=== PATIENT | female | born 2000 | race Caucasian/White ===

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

== ENCOUNTER 2022-02-24 05:44 | Day surgery (SDC) | payer OTHER, SELFPAY ==
[2022-02-24] MEDS: Lactated Ringers 1,000 ML 15 ML IV (06:23)
[2022-02-24 06:24] VITALS: BP 111/65; PULSE 78; RESP 18; TEMP 36.6; O2SAT 100; BMI 21.2
--- NOTE | 2022-02-24 07:00 | EGD_PTH ---
PATIENT: LEOBARDO COLIN LOC: EN U#:[id number] AGE/SX: 21/F ROOM: RE02/24/[address]: Dr. Tyson Sotelo DO : 2000 BED: DIS: 02/24/2022 SPEC #: [id number] RECD: 02/24/22 15:09 STATUS: ELVIS REQ #: [id number] SUKHDEEP: 02/24/22 07:[address]: Tyson Sotelo DEPT: SURGICAL PATHOLOGY RECD BY: Lauren Landa ENTERED: 02/25/22 13:05 SP TYPE: EGD BIOPSY OT DR: Dr. Mitali Alonzo MD Tissues: A - Esophagus, NOS B - Ileum, NOS C - COLON BIOPSY Procedures: Special Stain Group II Surgery Specimen Level IV Alcian Blue/PAS (control) HEADER OPERATION: Colonoscopy, EGD ([facility] [place]), pill cam placement PRE-OP DIAGNOSIS: Celiac disease TISSUE SUBMITTED: A ? Distal esophagus biopsy, B ? Terminal ileum biopsy, C ? Random colonic biopsy MICROSCOPIC DIAGNOSIS A. Distal esophagus, biopsy: Gastroesophageal junctional mucosa with chronic inflammation. No evidence of goblet cell metaplasia. See comment. B. Terminal ileum, biopsy: No pathologic change. C. Colon, random biopsy: No pathologic change. AM:michael 02/28/2022 COMMENT A. Alcian blue/PAS stain with matched control supports the above diagnosis. MICROSCOPIC DESCRIPTION Slides are reviewed. GROSS DESCRIPTION A - Received in fixative is one container labeled with the patient's name and designated distal esophagus biopsy. The specimen consists of two irregular fragments of light rowell soft tissue that in aggregate measure 0.5 x 0.3 x 0.1 cm. The specimen is totally submitted in one cassette. B - Received in fixative is one container labeled with the patient's name and designated terminal ileum biopsy. The specimen consists of two irregular fragments of light rowell soft tissue that in aggregate measure 1 x 0.5 x 0.1 cm. The specimen is totally submitted in one cassette. C - Received in fixative is one container labeled with the patient's name and designated random colon biopsy. The specimen consists of multiple irregular fragments of light rowell soft tissue that in aggregate measure 1.5 x 1 x 0.1 cm. The specimen is totally submitted in one cassette. / AM:michael 02/25/2022 TC:5 CPT: 09829 x3, [id number]
--- NOTE | 2022-02-24 07:10 | HP.PCM_ITS ---
History and Physical Date of Admission: 02/24/22 MARISA COLIN, is a 21 F who presents to the office today accompanied by her father for 2 month f/u abdominal pain, bloating, constipation. Workup at last visit revealed she has celiac disease.? She has been following a gluten-free diet since that diagnosis, and reports resolution of her GI complaints.? Bowels now move daily or at least every other day, she has no further abdominal pain or bloating. She has working diagnosis of scleroderma based on lab results, goes to [facility], Dr Glez.? She has follow-up with him in February. Her paternal uncle had colon cancer age 50.? Her father is in his 40s, he has had colon polyps. Romana established with this clinic 09.01.21 with referral from PCP for positive MONROE with workup for scleroderma; symptom onset and first noted by several episodes of iritis.? Shortly after having the COVID vaccination she dev eloped right eye redness and pain.? Interestingly she currently has a recurrence of the right eye redness and pain, this occurred within 48 hours of receiving the flu vaccination.? She has an appointment today to see her lead data architect Dr. Parikh for this recurrence of what he has diagnosed as scleritis rather than iritis.? Seen by rheumatology with no noted skin tightening, photosensitivity, calcinosis, telangiectasias. Noted some Raynauds phenomenon in feet. GI symptoms included upper abdominal pain worse after eating, constipation with lower abdominal/pelvic pain. Biochemical workup with PCP ESR, CBC, Lyme (P41 and P23 present), CCP IgG ab without pertinent abnormalities. Elevated: CRP 5.71, MONROE positive with Anti Cent B ab 6.0. Stool testing calprotectin, pancreatic elastase, H.Pylori and lactoferrin without abnormality. 10/2021 labs: crp 5.16, neg stool calpro, neg stool h pylori, normal GAME, normal SPEP w/ GAVIN, normal ANCA,?positive tissue transglutaminase IgA SITZ marker . First Xray four R colon, 19 R colon, none RS colon, total 23 rings. Second Xray five rings RS colon. 11/18/21 NM/Gastric Emptying Study IMPRESSION: 1. NORMAL 99m Tc sulfur colloid semi-solid phase (oatmeal) gastric emptying imaging examination. 19.10 minutes, (Normal: 12-56 minutes).? A.? There is normal and preserved semi-solid phase gastric emptying compared to normal controls.? (Ann et al, J Nucl Med Tech? 38: 186, 2010). 12/16/21 NM/Hepatobilliary Img w/Pharm Int IMPRESSION: 1.? A gallbladder ejection fraction calculated to be greater than 35% following the administration of intravenous cholecystokinin makes? the probability of functional hepatobiliary disease (gallbladder dyskinesia) and/or organic hepatobiliary disease (chronic acalculous cholecystitis and/or cystic duct syndrome) to be low. 2.? An encountered? normal gallbladder ejection fraction with refilling of the gallbladder following CCK administration, may represent the presence of Sphincter of Oddi dysfunction.? Correlation with Sphincter of Oddi manometry may be of benefit.? (Erich, J Nucl Med 38:1824, 1996). 3. There is visualized duodenal gastric reflux on the post CCK acquisition ROS Const Constitutional: Positive for fatigue and headache(s) ENT ENT: Positive for headache(s); No difficulty swallowing Gastro GI: Positive for change in bowel habits; No abdominal pain, belching, bloating, change in stool character, coffee ground emesis, constipation, cramping, diarrhea, heartburn, difficulty swallowing, feeling full early, excessive flatus, incontinent of stools, Vomiting blood/hematemesis, Blood in stool, loose stools, Black,tarry stools, nausea/dyspepsia, pain with swallowing, vomiting or other Musc Musculoskeletal: Positive for joint pain and back pain Skin Skin: Positive for dry skin; No yellowing of the eye or itchy eyes Neuro Neurology: Positive for headache(s) Psych Psychiatric: Positive for anxiety and No depression Endo Endocrine: Positive for fatigue Aller/Imm Allergy/Immunologic: No itchy eyes Allen/Lymp Hematologic/Lymphatic: No easy bleeding or easy bruising Exam Const General: cooperative, healthy appearing and comfortable Nutritional Appearance: average body habitus Orientation: alert, awake and oriented x3 Quality Reporting Tobacco Screening ([facility] 138) Smoking Status: Never smoker Assessment and Plan Assessment and Plan (1) Celiac disease: ?Status:?Acute ?Plan: 21-year-old female whose GI symptoms have resolved since instituting a gluten- free diet since being diagnosed with celiac disease in October [address] Sotelo.? We will schedule her for baseline upper and lower endoscopy as well as a capsule endoscopy to evaluate the entire small bowel, we will plan on capsule endoscopy being placed when she has her endoscopies done. 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 There are no clinical changes since date of exam.
[2022-02-24 07:52] VITALS: BP 124/75; PULSE 72; RESP 18; TEMP 36.6; O2SAT 94
[2022-02-24 07:53] VITALS: BP 100/52; PULSE 77; RESP 18; O2SAT 97
--- NOTE | 2022-02-24 07:59 | OP.EGD_ITS ---
Patient Name: Romana Hancock Procedure Date: 02/24/2022 7:10 AM Date of : 2000 Age: 21 Procedure: Upper GI endoscopy Indications: Epigastric abdominal pain Providers: Tyson Sotelo DO Referring MD: Mitali Alonzo Medicines: Monitored Anesthesia Care Patient Profile: This is a 21 year old female. Refer to note in patient chart for documentation of history and physical. Patient has symptoms of chronic abdominal cramping, chronic epigastric abdominal pain and chronic nausea. Complications: No immediate complications. Procedure: Pre-Anesthesia Assessment: - Prior to the procedure, a History and Physical was performed, and patient medications and allergies were reviewed. The risks and benefits of the procedure and the sedation options and risks were discussed with the patient. All questions were answered and informed consent was obtained. Patient identification and proposed procedure were verified by the physician. Mental Status Examination: alert and oriented. Respiratory Examination: clear to auscultation. CV Examination: normal. Prophylactic Antibiotics: The patient does not require prophylactic antibiotics. Prior Anticoagulants: The patient has taken no previous anticoagulant or antiplatelet agents. After reviewing the risks and benefits, the patient was deemed in satisfactory condition to undergo the procedure. The anesthesia plan was to use monitored anesthesia care (MAC). Immediately prior to administration of medications, the patient was re-assessed for adequacy to receive sedatives. The heart rate, respiratory rate, oxygen saturations, blood pressure, adequacy of pulmonary ventilation, and response to care were monitored throughout the procedure. The physical status of the patient was re-assessed after the procedure. After obtaining informed consent, the endoscope was passed under direct vision. Throughout the procedure, the patient's blood pressure, pulse, and oxygen saturations were monitored continuously. The Colonoscope was introduced through the mouth, and advanced to the second part of duodenum. The upper GI endoscopy was accomplished without difficulty. The patient tolerated the procedure well. Scope In: 7:20:47 AM Scope Out: 7:36:37 AM Total Procedure Duration Time 0 hours 15 minutes 50 seconds Findings: The Z-line was irregular and was found 38 cm from the incisors. Biopsies were taken with a cold forceps for histology. Verification of patient identification for the specimen was done. The entire examined stomach was normal. No gross lesions were noted in the duodenal bulb, in the first portion of the duodenum and in the second portion of the duodenum. Using the endoscope, the video capsule enteroscope was advanced into the second portion of the duodenum. Impression: - Z-line irregular, 38 cm from the incisors. Biopsied. - Normal stomach. - No gross lesions in the duodenal bulb, in the first portion of the duodenum and in the second portion of the duodenum. - Successful completion of the Video Capsule Enteroscope placement. Recommendation: - Discharge patient to home. - Resume previous diet. - Continue present medications. - Await pathology results. Procedure Code(s): --- Professional --- 85761, Esophagogastroduodenoscopy, flexible, transoral; with biopsy, single or multiple CPT copyright 2017 [employer]. All rights reserved. The codes documented in this report are preliminary and upon spring production supervisor review may be revised to meet current compliance requirements. Tyson Sotelo DO 02/24/2022 7:59:00 AM This report has been signed electronically. Number of Addenda: 0 Note Initiated On: 02/24/2022 7:10 AM
[2022-02-24 08:00] VITALS: BP 95/59; PULSE 66; RESP 18; O2SAT 96
--- NOTE | 2022-02-24 08:00 | OP.CCLET_ITS ---
02/24/2022 Mitali Alonzo [place] [id number] [place] [address] Re : Upper GI endoscopy procedure for Romana Rossalena Dear Dr. Alonzo This procedure was performed on February. My impressions and recommendations are as follows: Impressions : - Z-line irregular, 38 cm from the incisors. Biopsied. - Normal stomach. - No gross lesions in the duodenal bulb, in the first portion of the duodenum and in the second portion of the duodenum. - Successful completion of the Video Capsule Enteroscope placement. Recommendations : - Discharge patient to home. - Resume previous diet. - Continue present medications. - Await pathology results. My findings are described in the full procedure note, which is enclosed. If I can be of further assistance, please feel free to contact me at . Sincerely, Tyson Sotelo, 02/24/2022 7:59:00 AM This report has been signed electronically.
[2022-02-24 08:05] VITALS: BP 105/57; BP 111/65; PULSE 75; RESP 18; TEMP 36.3; O2SAT 99
--- NOTE | 2022-02-24 08:05 | OP.COLON_ITS ---
Patient Name: Romana Hancock Procedure Date: 02/24/2022 7:36 AM Date of : 2000 Age: 21 Procedure: Colonoscopy Indications: Epigastric abdominal pain, Generalized abdominal pain, Abdominal pain in the left lower quadrant, Clinically significant diarrhea of unexplained origin Providers: Tyson Sotelo DO Referring MD: Mitali Alonzo Medicines: Monitored Anesthesia Care Patient Profile: This is a 21 year old female. Refer to note in patient chart for documentation of history and physical. Patient has symptoms of chronic abdominal cramping, chronic epigastric abdominal pain and chronic nausea. Last Colonoscopy: none. The patient's first colonoscopy is today. Complications: No immediate complications. Procedure: Pre-Anesthesia Assessment: - Prior to the procedure, a History and Physical was performed, and patient medications and allergies were reviewed. The risks and benefits of the procedure and the sedation options and risks were discussed with the patient. All questions were answered and informed consent was obtained. Patient identification and proposed procedure were verified by the physician. Mental Status Examination: alert and oriented. Respiratory Examination: clear to auscultation. CV Examination: normal. Prophylactic Antibiotics: The patient does not require prophylactic antibiotics. Prior Anticoagulants: The patient has taken no previous anticoagulant or antiplatelet agents. After reviewing the risks and benefits, the patient was deemed in satisfactory condition to undergo the procedure. The anesthesia plan was to use monitored anesthesia care (MAC). Immediately prior to administration of medications, the patient was re-assessed for adequacy to receive sedatives. The heart rate, respiratory rate, oxygen saturations, blood pressure, adequacy of pulmonary ventilation, and response to care were monitored throughout the procedure. The physical status of the patient was re-assessed after the procedure. After I obtained informed consent, the scope was passed under direct vision. Throughout the procedure, the patient's blood pressure, pulse, and oxygen saturations were monitored continuously. The Colonoscope was introduced through the anus and advanced to the terminal ileum. The colonoscopy was performed without difficulty. The patient tolerated the procedure well. The quality of the bowel preparation was good. Scope In: 7:38:25 AM Scope Withdrawal Time 0 hours 7 minutes 15 seconds Scope Out: 7:47:40 AM Total Procedure Duration Time 0 hours 9 minutes 15 seconds Findings: The perianal and digital rectal examinations were normal. The colon (entire examined portion) appeared normal. Biopsies were taken with a cold forceps for histology. Verification of patient identification for the specimen was done. Estimated blood loss was minimal. The terminal ileum appeared normal. Biopsies were taken with a cold forceps for histology. Verification of patient identification for the specimen was done. Estimated blood loss was minimal. No additional abnormalities were found on retroflexion. Impression: - The entire examined colon is normal. Biopsied. - The examined portion of the ileum was normal. Biopsied. Recommendation: - Discharge patient to home. - Resume previous diet. - Continue present medications. - Await pathology results. - Repeat colonoscopy in 5 years for surveillance based on pathology results. Procedure Code(s): --- Professional --- 20526, Colonoscopy, flexible; with biopsy, single or multiple CPT copyright 2017 [employer]. All rights reserved. The codes documented in this report are preliminary and upon sports book writer review may be revised to meet current compliance requirements. Tyson Sotelo DO 02/24/2022 8:04:31 AM This report has been signed electronically. Number of Addenda: 0 Note Initiated On: 02/24/2022 7:36 AM
--- NOTE | 2022-02-24 08:05 | OP.CCLET_ITS ---
02/24/2022 Mitali Alonzo [place] [id number] [place] [address] Re : Colonoscopy procedure for Romana Hancock Dear Dr. Alonzo This procedure was performed on February. My impressions and recommendations are as follows: Impressions : - The entire examined colon is normal. Biopsied. - The examined portion of the ileum was normal. Biopsied. Recommendations : - Discharge patient to home. - Resume previous diet. - Continue present medications. - Await pathology results. - Repeat colonoscopy in 5 years for surveillance based on pathology results. My findings are described in the full procedure note, which is enclosed. If I can be of further assistance, please feel free to contact me at . Sincerely, Tyson Sotelo, 02/24/2022 8:04:31 AM This report has been signed electronically.
[2022-02-24 08:24] VITALS: BP 111/65
== END 2022-02-24 08:30 | disposition home or self-care (01) ==
LOC: EN 05:48 → AC 05:50
PROVIDERS: PCP Family Medicine; Referring Provider Family Medicine; Visit Provider Internal Medicine Gastroenterology
PROC: 0DJD8ZZ Inspection of Lower Intestinal Tract, Via Natural or Artificial Opening Endoscopic (ICD-10-PCS; CPT 45378; principal; 2022-02-24 06:55)
DX: K20.90 Esophagitis, unspecified without bleeding (principal); K90.0 Celiac disease; R10.13 Epigastric pain; R19.7 Diarrhea, unspecified
CPT/HCPCS: 43239; 45380; 88305; 88313; J7120; J2405

== ENCOUNTER → 2022-03-10 | Outpatient (CLI) | payer OTHER, SELFPAY ==
[2022-03-10 10:41] LABS: Erythrocyte Sedimentation Rate 2 mm/hr (0-30)
[2022-03-10 11:16] LABS: CRP 2.97 mg/L (0.0-3.0); LDH 107 U/L (84-246)
[2022-03-11 18:07] LABS: Endomysial Antibody IgA Negative (Negative)
[2022-03-11 19:02] LABS: Immunoglobulin A 130 mg/dL (87-352); t-Transglutaminase IgA 3 U/mL (0-3)
== END | disposition home or self-care (01) ==
PROVIDERS: PCP Family Medicine; Visit Provider Nurse Practitioner Adult Health
DX: K90.0 Celiac disease (principal); R19.8 Other specified symptoms and signs involving the digestive system and abdomen; R10.9 Unspecified abdominal pain; K63.3 Ulcer of intestine
CPT/HCPCS: 36415; 82784; 83516; 83615; 85652; 86140; 86255

== ENCOUNTER → 2022-05-20 | Outpatient (CLI) | payer OTHER, SELFPAY ==
[2022-05-20 10:16] VITALS: BP 108/73; PULSE 86; RESP 17; TEMP 36.8; O2SAT 100; BMI 21.9
[2022-05-20] MEDS: Dextrose 5% 250 ML 15 ML IV (10:37)
[2022-05-20 11:57] VITALS: BP 100/54; PULSE 69; RESP 16; TEMP 36.7; O2SAT 100
== END | disposition home or self-care (01) ==
LOC: MEDOUTP 10:04
PROVIDERS: PCP Family Medicine; Referring Provider Internal Medicine Gastroenterology; Visit Provider Internal Medicine Gastroenterology
DX: K50.90 Crohn's disease, unspecified, without complications (principal)
CPT/HCPCS: 96365; A4216; J2327

== ENCOUNTER → 2022-06-21 | Outpatient (CLI) | payer OTHER, SELFPAY ==
[2022-06-21 13:24] VITALS: BP 112/66; PULSE 77; RESP 16; O2SAT 100
[2022-06-21] MEDS: Dextrose 5% 250 ML 15 ML IV (13:56)
[2022-06-21 15:29] VITALS: BP 115/67; PULSE 87; RESP 16
== END | disposition home or self-care (01) ==
LOC: MEDOUTP 13:09
PROVIDERS: PCP Family Medicine; Referring Provider Internal Medicine Gastroenterology; Visit Provider Internal Medicine Gastroenterology
DX: K50.90 Crohn's disease, unspecified, without complications (principal)
CPT/HCPCS: 96365; A4216; J2327

== ENCOUNTER 2022-07-19 13:22 | Outpatient (CLI) | payer OTHER, SELFPAY ==
[2022-07-19] MEDS: 0.9% NaCl Peripheral Flush Adult/Peds IV (13:27)
[2022-07-19 13:39] VITALS: BP 119/68; PULSE 94; RESP 16; TEMP 36.5; O2SAT 100; BMI 22.7
[2022-07-19] MEDS: 0.9% NaCl IVPB Med Flush (250 mL) 15 ML IV (13:39)
[2022-07-19 15:26] VITALS: BP 93/55; PULSE 78
== END 2022-07-19 13:23 | disposition home or self-care (01) ==
LOC: MEDOUTP 13:22
PROVIDERS: PCP Family Medicine; Referring Provider Internal Medicine Gastroenterology; Visit Provider Internal Medicine Gastroenterology
DX: K50.90 Crohn's disease, unspecified, without complications (principal)
CPT/HCPCS: 96365; J7050; A4216; J2327

== ENCOUNTER → 2022-09-02 | Outpatient (CLI) | payer OTHER, SELFPAY ==
[2022-09-06 07:07] LABS: QNTFERON TB Mitogen Value > 10.00 IU/mL (.); QNTFERON TB Nil Value 0 IU/mL (.); QNTFERON TB1+ Ag Value 0 IU/mL (.); QNTFERON TB2+ Ag Value 0 IU/mL (.); QNTIFERON TB Positive Criteria Negative (Negative)
== END | disposition home or self-care (01) ==
LOC: BFHLAB 11:12
PROVIDERS: PCP Family Medicine; Visit Provider Family Medicine
DX: Z11.1 Encounter for screening for respiratory tuberculosis (principal)
CPT/HCPCS: 36415; 86480

== ENCOUNTER → 2022-10-14 | Outpatient (CLI) | payer OTHER, SELFPAY ==
[2022-10-14 14:58] LABS: Absolute Lymphocyte Count 2.66 X10^3/uL (0.83-4.51); Absolute Neutrophil Count 2.9 X10^3/uL (2.0-7.7); Basophil# 0.03 X10^3/uL; Basophil% 0.5 % (0-1); Eosinophil# 0.13 X10^3/uL; Eosinophils% 2.1 % (0-5); Hematocrit 38.9 % (37-47); Hemoglobin 12.6 g/dL (12.0-15.0); Lymphocyte # 2.66 X10^3/ul (0.83-4.51); Mean Corp Hgb Conc 32.4 g/dL (32-36); Mean Corpuscular Hgb 29.2 pg (27.0-32.0); Mean Corpuscular Volume 90.3 fL (81-99); Mean Platelet Vol. 11.3 fl (6.2-12.0); Monocyte# 0.43 X10^3/uL; Monocyte% 6.9 % (0-10); NRBC Flagged by Analyzer 0 % (0-5); Neutrophil # 2.92 X10^3/uL (2.7-7.7); Neutrophil % 47.2 % (47-70); Platelet Count 232 K/mm3 (150-450); RBC Distribution Width CV 12.5 % (11.6-14.6); RBC Distribution Width SD 41.6 fl (35.1-43.9); Red Blood Count 4.31 M/mm3 (4.2-5.4); White Blood Count 6.2 K/mm3 (4.4-11.0)
[2022-10-14 15:26] LABS: Vitamin B12 274 pg/mL (211-911)
[2022-10-14 15:49] LABS: Ferritin 13 ng/mL (8-252); Iron 77 ug/dL (50-170); Iron Binding Capacity,Total 426 ug/dL (250-450); PERCENT IRON SATURATION 18.1 % (15.0-55.0)
== END | disposition home or self-care (01) ==
LOC: LAB 14:40
PROVIDERS: PCP Family Medicine; Referring Provider Family Medicine; Visit Provider Family Medicine
DX: R55 Syncope and collapse (principal); D64.9 Anemia, unspecified
CPT/HCPCS: 36415; 82607; 82728; 82746; 83540; 83550; 85025

== ENCOUNTER → 2022-12-13 | Outpatient (CLI) | payer OTHER, SELFPAY ==
[2022-12-13 12:15] LABS: Absolute Lymphocyte Count 1.58 X10^3/uL (0.83-4.51); Absolute Neutrophil Count 4.1 X10^3/uL (2.0-7.7); Basophil# 0.02 X10^3/uL; Basophil% 0.3 % (0-1); Eosinophil# 0.09 X10^3/uL; Eosinophils% 1.5 % (0-5); Hematocrit 39.9 % (37-47); Hemoglobin 12.8 g/dL (12.0-15.0); Lymphocyte # 1.58 X10^3/ul (0.83-4.51); Lymphocyte % 25.7 % (19-41); Mean Corp Hgb Conc 32.1 g/dL (32-36); Mean Corpuscular Volume 90.5 fL (81-99); Monocyte# 0.34 X10^3/uL; Monocyte% 5.5 % (0-10); NRBC Flagged by Analyzer 0 % (0-5); Neutrophil # 4.08 X10^3/uL (2.7-7.7); Neutrophil % 66.5 % (47-70); Platelet Count 236 K/mm3 (150-450); RBC Distribution Width SD 43.2 fl (35.1-43.9); Red Blood Count 4.41 M/mm3 (4.2-5.4); White Blood Count 6.1 K/mm3 (4.4-11.0)
[2022-12-13 13:07] LABS: Ferritin 15 ng/mL (8-252); Iron 160 ug/dL (50-170); Iron Binding Capacity,Total 368 ug/dL (250-450); PERCENT IRON SATURATION 43.5 % (15.0-55.0)
== END | disposition home or self-care (01) ==
LOC: BFHLAB 11:03
PROVIDERS: PCP Family Medicine; Referring Provider Family Medicine; Visit Provider Family Medicine
DX: D50.9 Iron deficiency anemia, unspecified (principal)
CPT/HCPCS: 36415; 82728; 83540; 83550; 85025

== ENCOUNTER 2023-01-01 03:11 | Emergency (ER) | payer OTHER, SELFPAY ==
[2023-01-01 03:12] VITALS: BP 139/91; PULSE 95; RESP 18; TEMP 36.6; O2SAT 100; BMI 24.3
--- NOTE | 2023-01-01 03:44 | RAD_ITS ---
INDICATION: chest pain EXAMINATION/TECHNIQUE: X-RAY - XR Chest 2 Views COMPARISON: 07/01/2021. FINDINGS: LINES/DEVICES: None. LUNGS: No consolidation or evidence of an effusion. No evidence of edema or a pneumothorax. MEDIASTINUM AND CARDIOVASCULAR STRUCTURES: Cardiac silhouette is normal in size and contour. Mediastinum is unremarkable. BONES AND SOFT TISSUES: No acute abnormality. RAD/Chest PA and Lateral IMPRESSION: No evidence of cardiopulmonary disease. Electronically Signed: Nestor oDdson DO at 3:56 EDT ,
[2023-01-01 03:47] LABS: Absolute Lymphocyte Count 3.18 X10^3/uL (0.83-4.51); Absolute Neutrophil Count 3.7 X10^3/uL (2.0-7.7); Basophil# 0.03 X10^3/uL; Basophil% 0.4 % (0-1); Eosinophil# 0.06 X10^3/uL; Eosinophils% 0.8 % (0-5); Hematocrit 39.6 % (37-47); Hemoglobin 12.9 g/dL (12.0-15.0); Lymphocyte # 3.18 X10^3/ul (0.83-4.51); Lymphocyte % 42.8 % (19-41); Mean Corp Hgb Conc 32.6 g/dL (32-36); Mean Corpuscular Hgb 29.3 pg (27.0-32.0); Mean Corpuscular Volume 89.8 fL (81-99); Monocyte# 0.49 X10^3/uL; Monocyte% 6.6 % (0-10); NRBC Flagged by Analyzer 0 % (0-5); Neutrophil # 3.66 X10^3/uL (2.7-7.7); Neutrophil % 49.3 % (47-70); Platelet Count 237 K/mm3 (150-450); RBC Distribution Width CV 12.6 % (11.6-14.6); RBC Distribution Width SD 41.9 fl (35.1-43.9); Red Blood Count 4.41 M/mm3 (4.2-5.4); White Blood Count 7.4 K/mm3 (4.4-11.0)
--- NOTE | 2023-01-01 03:51 | EDS_ITS ---
HPI History of Present Illness Chief Complaint: Chest Pain Informant: patient and friend Narrative Narrative: Patient is a 22-year-old female with past medical history of celiac disease as well as Crohn's disease who receives monthly injections of Skyrizi. Patient states around 7 or 8:00 this evening she developed some midsternal left-sided chest discomfort. She states that there was no recent trauma or excessive activity. She denies any sick symptoms. She reports she is on oral control but denies smoking or vaping. She denies any recent travel surgery or history of DVT/PE but does state that her symptoms seem to be worse with deep inspiration. She states that there has been no associated nausea vomiting or diaphoresis and she denies any illicit drug use such as crack cocaine or methamphetamine. However as symptoms have been persistent she presents for evaluation [facility] Medical History Abdominal pain Acne Alternating constipation and diarrhea Anemia Constipation Epigastric pain Exercise-induced asthma Eyelid eczema History of echocardiogram Myalgia Positive MONROE (antinuclear antibody) Ulcer of small intestine Uveitis Wears contact lenses Wears glasses Home Medications norgestimate-ethinyl estradiol 0.18 mg/0.215mg/0.25mg-35 mcg(28)tablet (Tri-Est arylla) 1 tab PO DAILY 07/22/21 [History Last Taken 02/23/22] prednisolone acetate 1 % eye drops,suspension 1 drp RIGHT EYE BID 02/22/22 [History Last Taken 02/23/22] dicyclomine 10 mg capsule 10 mg PO BID #60 caps 05/17/22 [Rx Last Taken Unknown] aloe vera 1 cap PO DAILY 06/21/22 [History Last Taken Unknown] sumatriptan succinate 50 mg tablet mg PO 10/06/22 [History Last Taken Unknown] risankizumab-rzaa 360 mg/2.4 mL (150 mg/mL) subcut wearable injector (Skyrizi) 360 mg (2.4 mL) subcut Q8W #2.4 mL 12/08/22 [Rx Last Taken Unknown] Allergy/AdvReac Type Severity Reaction Status Date / Time adalimumab [From Humira] Allergy Rash Verified 01/01/23 03:14 Surgical History History of wisdom tooth extraction Social History Smoking Status: Never smoker alcohol intake: never ROS ROS ED Constitutional Constitutional ED: Denies chills or fever(s) ENT ENT ED: Denies sore throat Cardiovascular Cardiovascular: Reports chest pain and racing heartbeat; Denies palpitations Respiratory/Chest Respiratory/Chest: Denies cough or dyspnea Gastrointestinal Gastrointestinal: Denies abdominal pain, diarrhea, nausea or vomiting Genitourinary Genitourinary ED: Denies dysuria Musculoskeletal Musculoskeletal: Denies myalgias Integumentary Denies rash Neurologic Neurologic: Denies headache(s) Hematologic/Lymphatic Hematologic/Lymphatic: Denies easy bleeding or easy bruising EXAM Physical Exam Const Vital Signs: 01/01/23 03:12 01/01/23 03:14 01/01/23 03:56 Temperature 97.9 F Temperature Source Temporal Pulse Rate 95 75 Respiratory Rate 18 16 Respiratory Effort Normal Non-Labored Blood Pressure 139/91 H 120/89 H Blood Pressure Mean 107 99 Pulse Ox 100 100 Oxygen Delivery Method Room Air Room Air Positive well nourished and well developed General Appearance ED: well developed HEENT Reports moist mucous membranes HEENT Narrative: No sign of infection noted in the posterior pharynx Eyes PERRL and EOMs intact bilaterally Neck supple Neck Narrative: No nuchal rigidity or meningeal signs Chest Wall Chest Narrative: There is reproducible left anterior chest wall pain on palpation along the costal joint of rib regions 4-6. Patient states this is the same pain she has been experiencing. There is no bony deformity or crepitance. No overlying soft tissue changes to suggest cellulitis or abscess. Resp normal respiratory effort and clear to auscultation bilaterally Cardio regular rhythm Rate: tachycardic and other Other Details: Slightly tachycardic rate with regular rhythm. No murmurs rubs or gallops noted Radial and carotid pulses are equal and symmetric GI normal to inspection, nondistended, normoactive bowel sounds, non-tender, non-distended and no masses GI Narrative: No voluntary guarding or rigidity no pulsatile mass or fluid wave Auscultation: normoactive bowel sounds Palpation: soft Extremity normal to inspection Extremity Narrative: No asymmetric edema no pitting edema negative Homans' sign bilaterally Neuro oriented x3, CN's II-XII intact bilaterally and no sensory deficits noted Sensorium / Orientation: alert Motor Exam: strength 5/5 throughout Psych Psych Narrative: Patient has a nervous/anxious affect Mood & Affect: anxious Skin no rashes or lesions noted and no wounds General Skin Exam: Negative for jaundice MDM MDM MDM Narrative Medical decision making narrative: Patient presented to the ER mildly hypertensive otherwise with stable vitals. She complained of midsternal left-sided chest discomfort. There is no associated classic cardiac symptoms such as nausea vomiting diaphoresis or shortness of breath. Patient also does not have a family history of cardiac disease at a young age. However as there is still possibility that this could be atypical acute coronary syndrome versus pulmonary embolus versus pneumonia versus pneumothorax versus myocarditis versus costochondritis/chest wall strain I did elect to perform basic laboratory studies with D-dimer and chest x-ray. Patient's troponin is less than 3 and as she is low risk for cardiovascular disease there is no need for delta troponin and this goes against acute coronary syndrome. Chest x-ray revealed no pneumonia or pneumothorax or widening of the mediastinum going against dissection. D-dimer is also normal going against pulmonary embolus or dissection. On reevaluation she is resting comfortably and her blood pressure has improved. For this time I feel symptoms are most likely musculoskeletal in nature and as she is low risk for acute coronary syndrome there is no need for further work-up and she is otherwise safe for discharge History & Record Review Discussion w/independent historian: Patient and Friend Lab Data Attestation: I reviewed the patient's lab results. Labs: Laboratory Results - last 24 hr 01/01/23 01/01/23 03:30 03:43 WBC 7.4 RBC 4.41 Hgb 12.9 Hct 39.6 MCV 89.8 MCH 29.3 MCHC 32.6 RDW Std Deviation 41.9 RDW Coeff of Abdiel 12.6 Plt Count 237 MPV 11.0 Immature Gran % (Auto) 0.100 Neut % (Auto) 49.3 Lymph % (Auto) 42.8 H [place] % (Auto) 6.6 Eos % (Auto) 0.8 Baso % (Auto) 0.4 Absolute Neuts (auto) 3.7 Absolute Lymphs (auto) 3.18 Nucleated RBC % 0 D-Dimer Quant (PE/DVT) < 0.27 L Sodium 139 Potassium 3.2 L Chloride 104 Carbon Dioxide 26.0 Anion Gap 9 BUN 11 Creatinine 0.93 Estim Creat Clear Calc 93.84 Est GFR (MDRD) Af Amer 99 Est GFR (MDRD) Non-Af 82 BUN/Creatinine Ratio 11.9 Glucose 93 Calcium 9.1 Magnesium 2.1 Total Bilirubin 0.40 Direct Bilirubin 0.08 AST 16 ALT 22 Alkaline Phosphatase 52 Troponin I High Sens < 3 L Total Protein 7.3 Albumin 3.7 Globulin 3.6 Radiography Diagnostic Testing: Clinical Impression(s) from Imaging Studies Chest X-Ray 01/01/23 03:44 IMPRESSION: No evidence of cardiopulmonary disease. Electronically Signed: Nestor Dodson DO at 3:56 EDT , 2 view chest x-ray as interpreted by the emergency medicine physician reveals no acute infiltrate pneumothorax pleural effusion or widening of the mediastinum Discharge Plan Triage Chief Complaint: Chest Pain ED Provider: Tyrell Sykes Dx/Rx/DC Orders Clinical Impression: Acute nonspecific chest pain with low risk of coronary artery disease, Crohn's disease, Celiac disease Instructions: ED Chest Pain, Uncertain Cause, ED Chest Wall Pain, Costochondritis Prescriptions: No Action norgestimate-ethinyl estradiol [Tri-Estarylla] 0.18/0.215/0.25 mg-35 mcg (28) tablet 1 tab PO DAILY sumatriptan succinate 50 mg tablet PO prednisolone acetate 1 % drops,suspension 1 drp RIGHT EYE BID Patient Comments: INSTILL 1 DROP INTO RIGHT EYE TWICE A DAY FOR 3 WEEKS aloe vera Capsule 1 cap PO DAILY dicyclomine 10 mg capsule 10 mg PO BID Qty: 60 2RF Skyrizi 360 mg/2.4 mL (150 mg/mL) wearable injector 360 mg subcut Q8W Qty: 2.4 6RF Primary Care Provider: Mitali Alonzo Referrals: Mitali Alonzo MD [Primary Care Provider] - Activity Restrictions/Additional Instructions: Your work-up in the ER showed no signs of active heart damage pneumonia pneumothorax or findings concerning for pulmonary embolus/blood clot. Work-up and exam is most consistent with musculoskeletal chest wall pain. Please continue with Tylenol and/or Motrin for pain control and continue all of your home medications as previously directed. If you have any further concerns please return to the ER for repeat evaluation. Disposition Disposition: Home, Self Care
[2023-01-01] MEDS: Ketorolac 30 MG/ML Syringe IV (03:52)
[2023-01-01 03:56] VITALS: BP 120/89; PULSE 75; RESP 16; O2SAT 100
[2023-01-01 04:09] LABS: Anion Gap 9 (5-15); BUN 11 mg/dL (7-18); BUN/Creat Ratio 11.9 RATIO (10-20); Calcium,Total 9.1 mg/dL (8.5-10.1); Chloride 104 mmol/L (98-107); Creatinine, Serum 0.93 mg/dL (0.55-1.02); EST Glomerular Filtration Rate 82 mL/min (>60); Est Glom Filt Rate - Afr Amer 99 mL/min (>60); Estimated Creatinine Clearance 93.84 ml/min; Glucose 93 mg/dL (74-106); Magnesium 2.1 mg/dL (1.6-2.6); Potassium 3.2 mmol/L (3.5-5.1); Sodium Level 139 mmol/L (136-145); Troponin-I HS < 3 pg/mL (3.0-54.0)
[2023-01-01 04:27] LABS: D-Dimer Quantitative (DVT/PE) < 0.27 FEU/ug/m (0.27-0.49)
[2023-01-01 04:42] LABS: AST(SGOT) 16 U/L (15-37); Alanine Aminotransfer ALT/SGPT 22 U/L (13-56); Albumin, Serum 3.7 g/dL (3.2-5.0); Alkaline Phosphatase 52 U/L (45-117); Bilirubin, Direct 0.08 mg/dL (0.00-0.30); Globulin 3.6 g/dL (2.2-4.2); Protein, Total 7.3 g/dL (6.4-8.2)
[2023-01-01 04:55] VITALS: BP 128/73; PULSE 69; RESP 18; O2SAT 99
== END 2023-01-01 04:56 | disposition home or self-care (01) ==
PROVIDERS: Emergency Provider Emergency Medicine; PCP Family Medicine; Visit Provider Emergency Medicine
DX: R07.89 Other chest pain (principal); K50.90 Crohn's disease, unspecified, without complications; K90.0 Celiac disease
CPT/HCPCS: 71046; 80048; 80076; 83735; 84484; 85025; 85379; 93005; 96374; 99283; A4216

== ENCOUNTER → 2023-03-27 | Outpatient (CLI) | payer OTHER, SELFPAY ==
--- OUTSIDE RECORDS SUMMARY | 2023-03-27 09:42 | XMS RPT_ITS | CCD ---
Author Name Unknown Address [address] [place] [address] Organization [facility] Results Test Name Value Interpretation Reference Range Facil ity Vital Signs Date Time Vital Sign Value Performing Clinician Faci lity 05-02-2019 00:17-0500 Body surface area Derived from formula [facility] ([place]) Summary Purpose Family History No Family History Records FoundNo Family History Records FoundNo Family History Records Found Advance Directives No Advanced Directives Records FoundNo Advanced Directives Records FoundNo Advanced Directives Records Found Additional Source Comments INFORMATION SOURCE (unrecogn ized section and content) DATE CREATED AUTHOR AUTHOR'S ORGANIZ ATION 05/04/2019 [facility] ([place]) DATE CREATED AUTHOR AUTHOR'S ORGANIZ ATION 10/01/[address] [facility] FOR RECORDS PERTAINING TO PATIENTS WHO ARE OR HAVE BEEN ENROLLED IN A CHEMICAL DEPENDENCY/SUBSTANCEABUSE PROGRAM, SOME INFORMATION MAY BE OMITTED. This clinical summary was aggregated from multiple sources. Caution should be exercised in using it in the provision of clinical care. This summary normalizes information from multiple sources, and as a consequence, information in this document may materially change the coding, format and clinical context of patient data. In addition, data may be omitted in some cases. CLINICAL DECISIONS SHOULD BE BASED ON THE PRIMARY CLINICAL RECORDS. [facility]. provides no warranty or guarantee of the accuracy or completeness of information in this document.
[2023-03-27 10:14] LABS: Absolute Neutrophil Count 3.8 X10^3/uL (2.0-7.7); Basophil# 0.03 X10^3/uL; Basophil% 0.5 % (0-1); Eosinophils% 1.6 % (0-5); Hematocrit 41.8 % (37-47); Hemoglobin 13.4 g/dL (12.0-15.0); Lymphocyte % 31.5 % (19-41); Mean Corp Hgb Conc 32.1 g/dL (32-36); Mean Corpuscular Hgb 28.9 pg (27.0-32.0); Mean Corpuscular Volume 90.1 fL (81-99); Mean Platelet Vol. 11.1 fl (6.2-12.0); Monocyte# 0.41 X10^3/uL; Monocyte% 6.5 % (0-10); NRBC Flagged by Analyzer 0 % (0-5); Neutrophil # 3.79 X10^3/uL (2.7-7.7); Neutrophil % 59.6 % (47-70); Platelet Count 229 K/mm3 (150-450); RBC Distribution Width CV 12.8 % (11.6-14.6); RBC Distribution Width SD 42.3 fl (35.1-43.9); Red Blood Count 4.64 M/mm3 (4.2-5.4); White Blood Count 6.4 K/mm3 (4.4-11.0)
[2023-03-27 10:15] LABS: Erythrocyte Sedimentation Rate < 1 mm/hr (0-30)
[2023-03-27 12:49] LABS: AST(SGOT) 11 U/L (15-37); Alanine Aminotransfer ALT/SGPT 19 U/L (13-56); Albumin, Serum 3.5 g/dL (3.2-5.0); Alkaline Phosphatase 53 U/L (45-117); Anion Gap 8 (5-15); BUN 9 mg/dL (7-18); BUN/Creat Ratio 10.9 RATIO (10-20); Calcium,Total 9.1 mg/dL (8.5-10.1); Chloride 107 mmol/L (98-107); Creatinine, Serum 0.82 mg/dL (0.55-1.02); EST Glomerular Filtration Rate 93 mL/min (>60); Est Glom Filt Rate - Afr Amer 113 mL/min (>60); Globulin 3.5 g/dL (2.2-4.2); Glucose 88 mg/dL (74-106); LDH 143 U/L (84-246); Potassium 3.8 mmol/L (3.5-5.1); Sodium Level 139 mmol/L (136-145)
[2023-03-29 19:09] LABS: Endomysial Antibody IgA Negative (Negative); Immunoglobulin A 135 mg/dL (87-352); QNTFERON TB Mitogen Value > 10.00 IU/mL (.); QNTFERON TB Nil Value 0 IU/mL (.); QNTFERON TB1+ Ag Value 0 IU/mL (.); QNTFERON TB2+ Ag Value 0 IU/mL (.); QNTIFERON TB Positive Criteria Negative (Negative); t-Transglutaminase IgA <2 U/mL (0-3)
[2023-04-01 01:07] LABS: Calprotectin, Stool 17 ug/g (0-120)
== END | disposition home or self-care (01) ==
LOC: LAB 09:17
PROVIDERS: PCP Family Medicine; Referring Provider Internal Medicine Gastroenterology; Visit Provider Internal Medicine Gastroenterology
DX: K50.90 Crohn's disease, unspecified, without complications (principal); K90.0 Celiac disease
CPT/HCPCS: 36415; 80053; 82784; 83516; 83615; 83630; 83993; 85025; 85652; 86140; 86255; 86480

== ENCOUNTER 2023-09-12 06:11 | Outpatient (REF) | payer SELFPAY ==
[2023-09-12 06:13] VITALS: BP 120/82; PULSE 81; RESP 16; TEMP 36.4; O2SAT 98; BMI 23.6
--- NOTE | 2023-09-12 06:26 | EDS_ITS ---
HPI History of Present Illness Chief Complaint: Occup Expose Informant: patient Narrative Narrative: Patient is a 23-year-old female with past medical history of Crohn's disease currently on Skyrizi. 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 She states this occurred just prior to arrival. She does admit to the history of immunosuppression secondary to Crohn's and the immunosuppressive drug Skyrizi. Otherwise denies any numbness tingling or weakness PFSH [facility] Medical History Ulcer of small intestine Abdominal pain Alternating constipation and diarrhea Wears contact lenses Wears glasses Anemia History of echocardiogram Myalgia Constipation Epigastric pain Uveitis Positive MONROE (antinuclear antibody) Exercise-induced asthma Eyelid eczema Acne Home Medications ?Medication ?Instructions ?Recorded ?Last Taken ?Type norgestimate-ethinyl estradiol 1 tab PO DAILY 07/22/21 02/23/22 History 0.18 mg/0.215mg/0.25mg-35 mcg(28)tablet (Tri-Estarylla) prednisolone acetate 1 % eye 1 drp RIGHT EYE BID PRN redness 02/22/22 02/23/22 History drops,suspension risankizumab-rzaa 360 mg/2.4 mL 360 mg (2.4 mL) subcut Q8W #2.4 mL 12/08/22 Unknown Rx (150 mg/mL) subcut wearable injector (Skyrizi) dicyclomine 10 mg capsule 10 mg PO BID #120 caps 08/20/23 Unknown Rx topiramate 25 mg tablet (Topamax) 25 mg PO BID 08/28/23 Unknown History doxycycline hyclate 20 mg tablet 20 mg PO BID 09/12/23 Unknown History Allergy/AdvReac Type Severity Reaction Status Date / Time adalimumab (From Humira) Allergy Rash Verified 05/24/23 11:55 gluten AdvReac Other Verified 09/12/23 06:13 Surgical History History of wisdom tooth extraction Social History Smoking Status: Never smoker alcohol intake: never ROS ROS ED Constitutional Constitutional ED: Denies chills or fever(s) Respiratory/Chest Respiratory/Chest: Denies cough Gastrointestinal Gastrointestinal: Denies nausea or vomiting Genitourinary Genitourinary ED: Denies dysuria Musculoskeletal Musculoskeletal: Denies myalgias Integumentary Reports Abrasions Neurologic Neurologic: Denies headache(s) Hematologic/Lymphatic Hematologic/Lymphatic: Denies easy bleeding or easy bruising EXAM Physical Exam Const Vital Signs: 09/12/23 06:13 09/12/23 06:13 Temperature 97.6 F L Temperature Source Oral Pulse Rate 81 Respiratory Rate 16 Respiratory Effort Normal Non-Labored Blood Pressure 120/82 H Blood Pressure Mean 94 Pulse Ox 98 Oxygen Delivery Method Room Air Positive well nourished and well developed General Appearance ED: well developed HEENT HEENT Narrative: Normocephalic atraumatic Eyes PERRL and EOMs intact bilaterally Neck supple Resp normal respiratory effort and clear to auscultation bilaterally Cardio regular rate and regular rhythm Extremity Extremity Narrative: Left upper extremity is neurovascularly intact; AIN/PIN are intact and normal Along the volar aspect of the wrist distal radius is a superficial less than half centimeter skin abrasion consistent with scrape/puncture from a needle. There is no active bleeding no retained foreign body no surrounding erythema or warmth or lymphangitic streaking Neuro oriented x3, CN's II-XII intact bilaterally and no sensory deficits noted Sensorium / Orientation: alert Motor Exam: strength 5/5 throughout Psych mental status grossly normal Skin Skin Narrative: Soft tissue abrasion to the left volar wrist as documented above MDM MDM MDM Narrative Medical decision making narrative: Patient presented to the ER with stable vitals and sustained a needle stick exposure just prior to arrival. 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 I do agree with drawing laboratory studies to ensure there is no signs of blood-borne pathogen but at this time based on the size of the injury and the nature of the source patient concern for underlying infection is low and do not recommend antiviral treatment. Patient was instructed on the normal symptomatic wound care and is otherwise safe for discharge History & Record Review Discussion w/independent historian: Patient Discharge Plan Triage Chief Complaint: Occup Expose ED Provider: Tyrell Sykes Dx/Rx/DC Orders Clinical Impression: Accidental needlestick injury with exposure to body fluid, Crohn's disease Instructions: ED NEEDLE STICK Health Care Worker Prescriptions: No Action norgestimate-ethinyl estradiol [Tri-Estarylla] 0.18/0.215/0.25 mg-35 mcg (28) tablet 1 tab PO DAILY topiramate [Topamax] 25 mg tablet 25 mg PO BID prednisolone acetate 1 % drops,suspension 1 drp RIGHT EYE BID PRN (Reason: redness) Patient Comments: INSTILL 1 DROP INTO RIGHT EYE TWICE A DAY FOR 3 WEEKS doxycycline hyclate 20 mg tablet 20 mg PO BID Skyrizi 360 mg/2.4 mL (150 mg/mL) wearable injector 360 mg subcut Q8W Qty: 2.4 6RF dicyclomine 10 mg capsule 10 mg PO BID Qty: 120 3RF Primary Care Provider: Mitali Alonzo Referrals: [facility]Group of Physicians] - Mitali Alonzo MD [Primary Care Provider] - Activity Restrictions/Additional Instructions: Please return to the ER should you have any further concerns Print Language: Tunisian Disposition Disposition: Home, Self Care
[2023-09-12 06:37] VITALS: BP 105/70; PULSE 64; RESP 16; TEMP 36.7; O2SAT 100
[2023-09-14 17:02] LABS: HIV - WCH Non-Reactive (Nonreactive); Hepatitis B Surface Antibody Reactive; Hepatitis B Surface Antigen Non-Reactive (Nonreactive); Hepatitis C Antibody Non-Reactive (Nonreactive)
== END 2023-09-12 06:53 | disposition home or self-care (01) ==
LOC: ED 06:11
PROVIDERS: PCP Family Medicine; Visit Provider Emergency Medicine
DX: S61.532A Puncture wound without foreign body of left wrist, initial encounter (principal); K50.90 Crohn's disease, unspecified, without complications; D84.9 Immunodeficiency, unspecified; Z79.899 Other long term (current) drug therapy; Z77.21 Contact with and (suspected) exposure to potentially hazardous body fluids; W46.1XXA Contact with contaminated hypodermic needle, initial encounter; Y99.0 Civilian activity done for income or pay
CPT/HCPCS: 86703; 86706; 86803; 87340

== ENCOUNTER → 2023-11-21 | Outpatient (CLI) | payer OTHER, SELFPAY ==
[2023-11-26 22:14] LABS: HPV Reflexed? NOT INDICATED
== END | disposition home or self-care (01) ==
LOC: LABSPEC 12:07
PROVIDERS: PCP Family Medicine; Referring Provider Nurse Practitioner Family; Visit Provider Nurse Practitioner Family
DX: Z12.4 Encounter for screening for malignant neoplasm of cervix (principal)
CPT/HCPCS: 88175; G0145

== ENCOUNTER → 2024-01-22 | Outpatient (CLI) | payer OTHER, SELFPAY ==
[2024-01-25 09:09] LABS: QNTFERON TB Mitogen Value > 10.00 IU/mL (.); QNTFERON TB Nil Value 0 IU/mL (.); QNTFERON TB1+ Ag Value 0 IU/mL (.); QNTFERON TB2+ Ag Value 0 IU/mL (.); QNTIFERON TB Positive Criteria Negative (Negative)
== END | disposition home or self-care (01) ==
LOC: BFHLAB 10:33
PROVIDERS: PCP Family Medicine; Referring Provider Nurse Practitioner Family; Visit Provider Nurse Practitioner Family
DX: Z11.7 Encounter for testing for latent tuberculosis infection (principal)
CPT/HCPCS: 36415; 86480

== ENCOUNTER → 2024-01-29 | Outpatient (CLI) | payer OTHER, SELFPAY | END | disposition home or self-care (01) | LOC: LABSPEC 10:27 | PROVIDERS: PCP Family Medicine; Referring Provider Nurse Practitioner Family; Visit Provider Nurse Practitioner Family | DX: L02.01 Cutaneous abscess of face (principal) | CPT/HCPCS: 87070; 87077; 87186; 87205 ==

== ENCOUNTER → 2024-04-05 | Outpatient (CLI) | payer OTHER, SELFPAY ==
--- NOTE | 2024-04-05 10:45 | RAD_ITS ---
STUDY: X-RAY - LEFT FOOT CLINICAL: Female, 23 years old. MYALGIA, BUMPS ON BOTH FEET FOR 2 YEARS TECHNIQUE: 3 views of the left foot. COMPARISON: None. FINDINGS: Normal talus, calcaneus, and tarsal bones. Normal visualized subtalar, talonavicular, calcaneocuboid, tarsal and tarsometatarsal articulations. Normal metatarsi. Normal metatarsophalangeal joint of the great toe. Normal tibial and fibular sesamoid bones. Normal interphalangeal joint of the great toe. Normal phalanges of the great toe. Normal second through fifth metatarsophalangeal joints. Normal interphalangeal joints and phalanges of the lesser toes. The soft tissue structures are unremarkable. There is no demonstrated fracture. RAD/Foot min 3 Views IMPRESSION: Normal x-ray examination of the left foot. Electronically Signed: Nomi Antonio MD at 9:35 EST ,
--- NOTE | 2024-04-05 10:45 | RAD_ITS ---
STUDY: X-RAY - RIGHT HAND REASON FOR EXAM: Female, 23 years old. MYALGIA, BUMPS ON RIGHT HAND X 2 MONTHS. TECHNIQUE: 3 views of the right hand. COMPARISON: None. FINDINGS: Normal radiocarpal articulation. Normal distal radioulnar joint. Normal visualized carpal bones. Normal carpal articulations. Normal carpometacarpal articulation of the thumb. Normal second through fifth carpometacarpal joints. Normal metacarpi. Normal metacarpophalangeal joint of the thumb. Normal interphalangeal joint of the thumb. Normal proximal and distal phalanges of the thumb. Normal metacarpophalangeal joints of the second through fifth fingers. Normal proximal and distal interphalangeal joints of the second through fifth fingers. Normal phalanges of the second through fifth fingers. The soft tissue structures are unremarkable. RAD/Hand Min 3 Views IMPRESSION: Normal x-ray examination of the right hand. Electronically Signed: Nomi Antonio MD at 9:44 EST ,
--- NOTE | 2024-04-05 10:45 | RAD_ITS ---
STUDY: X-RAY - LEFT HAND REASON FOR EXAM: Female, 23 years old. MYALGIA, BUMPS ON RIGHT HAND X 2 MONTHS TECHNIQUE: 3 views of the left hand. COMPARISON: None. FINDINGS: Normal radiocarpal articulation. Normal distal radioulnar joint. Normal visualized carpal bones. Normal carpal articulations. Normal carpometacarpal articulation of the thumb. Normal second through fifth carpometacarpal joints. Normal metacarpi. Normal metacarpophalangeal joint of the thumb. Normal interphalangeal joint of the thumb. Normal proximal and distal phalanges of the thumb. Normal metacarpophalangeal joints of the second through fifth fingers. Normal proximal and distal interphalangeal joints of the second through fifth fingers. Normal phalanges of the second through fifth fingers. The soft tissue structures are unremarkable. RAD/Hand Min 3 Views IMPRESSION: Normal x-ray examination of the left hand. Electronically Signed: Nomi Antonio MD at 9:39 EST ,
--- NOTE | 2024-04-05 10:45 | RAD_ITS ---
STUDY: X-RAY - PELVIS REASON FOR EXAM: Female, 23 years old. MYALGIA,OTHER SITE -- AP PELVIS-W FROG VIEW TECHNIQUE: One view of the pelvis was obtained. COMPARISON: None. FINDINGS: There is a non-specific bowel gas pattern. Normal visualized soft tissue structures. No fracture or displaced bony fragment is present. No demonstrated sclerosis or osteophyte formation of the SI joints. Normal bilateral iliac wings, sacroiliac joints and visualized sacrum. Normal visualized bilateral superior and inferior pubic rami. There are minimal degenerative changes of the pubic symphysis with articular narrowing and sclerosis. Normal ischial tuberosities. Normal visualized right femoral head. Normal right acetabulum. Normal right hip joint. Normal visualized left femoral head. Normal left acetabulum. Normal left hip joint. RAD/Pelvis 1 or 2 Views IMPRESSION: 1. Minimal degenerative changes of the pubic symphysis. The remaining structures are normal. Electronically Signed: Renard Beckwith MD at 9:23 EST ,
--- NOTE | 2024-04-05 10:45 | RAD_ITS ---
STUDY: X-RAY - RIGHT FOOT CLINICAL: Female, 23 years old. MYALGIA, OTHER SITE TECHNIQUE: 3 views of the right foot. COMPARISON: None. FINDINGS: Normal talus, calcaneus, and tarsal bones. Normal visualized subtalar, talonavicular, calcaneocuboid, tarsal and tarsometatarsal articulations. Normal metatarsi. Normal metatarsophalangeal joint of the great toe. Normal tibial and fibular sesamoid bones. Normal interphalangeal joint of the great toe. Normal phalanges of the great toe. Normal second through fifth metatarsophalangeal joints. Normal interphalangeal joints and phalanges of the lesser toes. The soft tissue structures are unremarkable. There is no demonstrated fracture. RAD/Foot min 3 Views IMPRESSION: Normal x-ray examination of the right foot. Electronically Signed: Nomi Antonio MD at 9:34 EST ,
[2024-04-05 11:05] LABS: Absolute Lymphocyte Count 2.32 X10^3/uL (0.83-4.51); Absolute Neutrophil Count 2.3 X10^3/uL (2.0-7.7); Basophil# 0.02 X10^3/uL; Basophil% 0.4 % (0-1); Eosinophil# 0.11 X10^3/uL; Eosinophils% 2.2 % (0-5); Hematocrit 42.3 % (37-47); Hemoglobin 14.2 g/dL (12.0-15.0); Lymphocyte # 2.32 X10^3/ul (0.83-4.51); Lymphocyte % 46.6 % (19-41); Mean Corp Hgb Conc 33.6 g/dL (32-36); Mean Corpuscular Hgb 29.5 pg (27.0-32.0); Mean Corpuscular Volume 87.8 fL (81-99); Mean Platelet Vol. 11.2 fl (6.2-12.0); Monocyte# 0.26 X10^3/uL; Monocyte% 5.2 % (0-10); NRBC Flagged by Analyzer 0 % (0-5); Neutrophil # 2.26 X10^3/uL (2.7-7.7); Neutrophil % 45.4 % (47-70); Platelet Count 239 K/mm3 (150-450); RBC Distribution Width CV 13.4 % (11.6-14.6); RBC Distribution Width SD 43.5 fl (35.1-43.9); Red Blood Count 4.82 M/mm3 (4.2-5.4)
[2024-04-05 11:08] LABS: Erythrocyte Sedimentation Rate < 1 mm/hr (0-30)
[2024-04-05 11:56] LABS: AST(SGOT) 7 U/L (15-37); Alanine Aminotransfer ALT/SGPT 15 U/L (13-56); Albumin, Serum 3.8 g/dL (3.2-5.0); Alkaline Phosphatase 52 U/L (45-117); Bilirubin, Direct 0.12 mg/dL (0.00-0.30); CRP < 2.90 mg/L (0.0-3.0); Globulin 3.6 g/dL (2.2-4.2); Protein, Total 7.4 g/dL (6.4-8.2)
[2024-04-06 02:40] LABS: Creatinine, Serum 0.98 mg/dL (0.55-1.02); EST Glomerular Filtration Rate 76 mL/min (>60); Est Glom Filt Rate - Afr Amer 92 mL/min (>60)
== END | disposition home or self-care (01) ==
LOC: LAB 09:51
PROVIDERS: PCP Family Medicine; Referring Provider Internal Medicine Rheumatology; Visit Provider Internal Medicine Rheumatology
DX: R76.0 Raised antibody titer (principal); Z79.899 Other long term (current) drug therapy; M79.18 Myalgia, other site
CPT/HCPCS: 36415; 72170; 73130; 73630; 80076; 82565; 85025; 85652; 86140

== ENCOUNTER → 2025-02-25 | Outpatient (CLI) | payer OTHER, SELFPAY ==
--- OUTSIDE RECORDS SUMMARY | 2025-02-25 11:14 | XMS RPT_ITS | CCD ---
Author Organization [facility] Care Team Providers Care Career And Guidance Counselor Name Role Phone Dr. Mitali Alonzo Primary Care Provider [phone] Dr. Omkar Guadarrama Attending Provider Dr. Mitali Alonzo Referring Provider [phone] Dr. Tyson Sotelo Attending Provider [phone] Dr. Daniel Schmitt Attending Provider Dr. Doris Walden Referring Provider Dr. Mitali Alonzo Primary Care Provider [phone] Dr. Mitali Alonzo Referring Provider [phone] Ashlyn MCGOWAN, ROSLYN-Amor Reed Attending Provider [phone] Dr. Tyson Sotelo Attending Provider [phone] Dr. Tyson Sotelo Other Provider [phone] Mitali Alonzo Primary Care Provider [phone] Dr. Mitali Alonzo Referring Provider [phone] Dr. Tyson Sotelo Attending Provider [phone] Dr. Tyson Sotelo Other Provider [phone] Ashlyn MCGOWAN, MOSHE Reed Attending Provider [phone] Dr. Mitali Alonzo Primary Care Provider [phone] Dr. Mitali Alonzo Referring Provider [phone] Dr. Tyson Sotelo Attending Provider [phone] Dr. Mitali Alonzo Primary Care Provider Dr. Mitali Alonzo Referring Provider Dr. Mitali Alonzo Primary Care Provider Dr. Mitali Alonzo Referring Provider Dr. Tyson Sotelo Attending Provider Mitali Alonzo MD Primary Care Provider CHERI MITALI E Primary Care Unavailable FAIZA THOMAS Attending Unavailable DORIS WALDEN Referring Unavailable Cheri CHRISTIANSON, Dr. Jasmine Primary Care Provider Dr. Mitali Alonzo MD Referring Provider Dr. Tyson Sotelo DO Attending Provider Assessment, Health Risk Attending Provider Unava ilable Assessment, Health Risk Referring Provider Unava ilable Gerri CLOTH BRUSHING AND SUEDING SUPERVISOR-CMara Attending Provider [facility], [place] [facility] Unavailable Assessment, Health Risk Attending Unavaila ble Assessment, Health Risk Referring Unavaila ble [facility], [place] [facility] Unavailable Tyson Sotelo Attending Unavailable Miedel, Mitali Referring Unavailable Miedel, [place] [facility] Unavailable Mara Talley Attending Unavailable Miedel, Mitali Referring Unavailable Miedel, Mitali Referring Unavailable Mara Talley Attending Unavailable Meed, [place] [facility] Unavailable [facility] [place] [facility] Unavailable Tyson Sotelo Attending Unavailable Miedel, Mitali Referring Unavailable Miedel, [place] [facility] Unavailable Mara Talley Attending Unavailable Miedel, Mitali Referring Unavailable DemarioLeobardo Attending Unavailable Demario Leobardo Referring Unavailable Meedel, Mitali Primary Care Unavailable HartongLeobardo Referring Unavailable Miedel, [place] [facility] Unavailable Leobardo Huynh Attending Unavailable Doris Walden Attending Unavailable Doris Walden Referring Unavailable Miedel, [place] [facility] Unavailable Allergies Allergy Classification Reported Allergen(s) Allergy Type Date of Onset Reaction(s) Facility (7 sources) adalimumab Drug Allergy 05-20-2022 Rash [facility] (2 sources) Wheat gluten extract Drug Allergy 04-04-2024 Other [facility] (1 source) adalimumab Drug Allergy 11-21-2024 [facility] Repository (1 source) Gluten Drug allergy (disorder) 11-21-2024 [facility] Repository Medications Current Medications Medication Drug Class(es) Dates Sig (Normalized) Sig (Original) [id number] 200 actuat albuterol 0.09 mg/actuat metered dose inhaler (7 sources) beta2-Adrenergic Agonist Start: 07-22-2021 take 1 puff(s) by inhalation every six hours Albuterol Sulfate (Ventolin Hfa) 90 mcg/actuation HFA aerosol inhaler Active 2 PUFF INHALATION EVERY 6 HOURS July 22, 2021 12:00am Aloe Vera (3 sources) Start: 06-21-2022 take 1 capsule by mouth once daily Aloe Vera Active 1 CAP PO DAILY June 20, 2022 11:00pm Start: 06-21-2022 take 1 capsule by mouth once d aily Aloe Vera Active 1 CAP PO DAILY June 21, 2022 12:00am busPIRone hydrochloride 7.5 mg oral tablet (7 sources) Start: 01-03-2024 End: 04-04-2024 take 1 tablet by mouth twice daily Buspirone 7.5 mg tablet Active 7.5 mg PO TWICE A DAY 180 April 04, 2024 4:33pm Start: 11-21-2023 [facility] busPIRone (BUSPAR) 5 mg tablet Take 1 tablet by mouth every 12 hours. 11/21/2023 Active Start: 11-21-2023 End: 01-03-2024 take 1 tablet by mouth twice daily Buspirone 5 mg tablet Discontinued 5 mg PO TWICE A DAY 60 November 21, 2023 12:00am January 03, 2024 3:38pm dicyclomine hydrochloride 10 mg oral capsule (15 sources) Anticholinergic Start: 03-01-2024 take 1 capsule by mouth twice daily as needed Dicyclomine 10 mg capsule Active 10 mg PO TWICE A DAY as needed March 01, 2024 10:25am Start: 10-22-2023 take 1 capsule by mo [facility] every twelve hours dicyclomine (BENTYL) 10 mg capsule Take 1 capsule by mouth every 12 hours. 10/22/2023 Active Start: 08-20-2023 End: 03-01-2024 take 1 capsule by mouth twice daily Dicyclomine 10 mg capsule Discontinued 10 mg PO TWICE A DAY 120 3 August 20, 2023 4:32pm March 01, 2024 10:26am Start: 05-17-2022 End: 08-20-2023 take 1 capsule by mouth twice daily Dicyclomine 10 mg capsule Discontinued 10 mg PO TWICE A DAY 60 2 June 19, 2023 12:53pm August 20, 2023 4:32pm doxycycline hyclate 20 mg oral tablet (3 sources) Tetracycline-class Drug Start: 09-12-2023 take 1 tablet by mouth twice daily Doxycycline Hyclate 20 mg tablet Active 20 mg PO TWICE A DAY September 12, 2023 12:00am Ethinyl Estradiol / norgestimate (16 sources) Progestin, Estrogen Start: 11-17-2023 take 1 tablet by mouth once Norgestimate-Eth inyl Estradiol 0.18/0.215/0.25 mg-35 mcg (28) Take 1 tablet by mouth every afternoon. 11/17/2023 Active Start: 07-22-2021 Norgestimate-E thinyl Estradiol (Tri-Estarylla) 0.18/0.215/0.25 mg-35 mcg (28) tablet Active 1 {tbl} PO DAILY July 22, 2021 12:00am Start: 07-22-2021 take 1 tablet by karly th once daily Norgestimate-Ethinyl Estradiol (Tri-Estarylla) 0.18/0.215/0.25 mg-35 mcg (28) tablet Active 1 TABLET PO DAILY July 21, 2021 11:00pm Start: 07-22-2021 take 1 tablet by karly th once daily Norgestimate-Ethinyl Estradiol (Tri-Estarylla) 0.18/0.215/0.25 mg-35 mcg (28) tablet Active 1 TABLET PO DAILY July 22, 2021 12:00am prednisoLONE acetate 10 mg/ml ophthalmic suspension (8 sources) Corticosteroid Start: 02-22-2022 Prednisolone A cetate 1 % drops,suspension Active 1 NMA RIGHT EYE TWICE A DAY as needed for redness February 22, 2022 1:00am SKYRIZI 360 mg/2.4 mL (150 mg/mL) wearable injector (1 source) Start: 10-24-2023 SKYRIZI 360 mg /2.4 mL (150 mg/mL) wearable injector 10/24/2023 Active topiramate 25 mg oral tablet (3 sources) Start: 11-11-2023 take 1 tablet by mouth every twelve hours topiramate (TOPAMAX) 25 mg tablet Take 1 tablet by mouth every 12 hours. 11/11/2023 Active Start: 08-28-2023 take 1 tablet by karly th twice daily Topiramate (Topamax) 25 mg tablet Active 25 mg PO TWICE A DAY August 28, 2023 12:00am Upadacitinib (1 source) Start: 11-12-2024 take 1 tablet by karly th once daily Upadacitinib (Rinvoq) 45 mg tablet extended release 24 hr Active 45 mg PO daily 84 84 0 November 12, 2024 12:00am February 03, 2025 1:00am Completed/Discontinued Medications Medication Drug Class(es) Dates Sig (Normalized) Sig (Original) 0.4 ml adalimumab 100 mg/ml auto-injector (20 sources) Tumor Necrosis Factor Camila Start: 03-24-2022 End: 05-17-2022 Adalimumab (Humira(Cf) Pen) 40 mg/0.4 mL pen injector kit Discontinued 0 SC .COMPLEX 2 March 24, 2022 1:00am May 17, 2022 9:58am inject one - 40 mg/0.4 mL pen every 2 weeks subcut Start: 03-24-2022 End: 05-17-2022 Adalimumab (Humira(Cf) Pen) 40 mg/0.4 mL pen injector kit Discontinued 0 SC .COMPLEX 2 March 24, 2022 12:00am May 17, 2022 8:58am inject one - 40 mg/0.4 mL pen every 2 weeks subcut Start: 03-22-2022 End: 03-22-2022 Adalimumab (Humira(Cf) Pen) 40 mg/0.4 mL pen injector kit Discontinued 0 SC .COMPLEX 2 March 22, 2022 1:00am March 22, 2022 4:46pm inject one - 40 mg/0.4 mL pen every 2 weeks subcut Start: 03-22-2022 End: 03-22-2022 Adalimumab (Humira(Cf) Pen) 40 mg/0.4 mL pen injector kit Discontinued 0 SC .COMPLEX 2 March 22, 2022 12:00am March 22, 2022 3:46pm inject one - 40 mg/0.4 mL pen every 2 weeks subcut Start: 03-21-2022 End: 03-22-2022 Adalimumab (Humira(Cf)) 40 m g/0.4 mL syringe kit Discontinued 0 SC .COMPLEX 2 March 21, 2022 1:00am March 22, 2022 2:51pm inject one - 40 mg/0.8 mL syringe every 2 weeks subcut Start: 03-21-2022 End: 05-17-2022 Adalimumab (Humira(Cf) Pen) 80 mg/0.8 mL pen injector kit Discontinued 0 SC .COMPLEX 3 0 March 24, 2022 6:01pm May 17, 2022 9:58am inject two - 80 mg/0.8 mL pens on Day 1; inject one - 80 mg/0.8 mL pen on Day 15 of therapy subcut Start: 03-21-2022 End: 03-22-2022 Adalimumab (Humira(Cf)) 40 m g/0.4 mL syringe kit Discontinued 0 SC .COMPLEX 2 March 21, 2022 12:00am March 22, 2022 1:51pm inject one - 40 mg/0.8 mL syringe every 2 weeks subcut Start: 03-21-2022 End: 05-17-2022 Adalimumab (Humira(Cf) Pen) 80 mg/0.8 mL pen injector kit Discontinued 0 SC .COMPLEX 3 March 24, 2022 5:01pm May 17, 2022 8:58am inject two - 80 mg/0.8 mL pens on Day 1; inject one - 80 mg/0.8 mL pen on Day 15 of therapy subcut Aloe Vera Capsule (2 sources) Start: 06-21-2022 End: 09-12-2023 take 1 capsule by mouth once daily Aloe Vera Capsule Discontinued 1 NMA PO DAILY June 21, 2022 12:00am September 12, 2023 6:15am permethrin 50 mg/ml topical cream (2 sources) Pyrethroid Start: 12-27-2016 End: 12-08-2023 permethrin (ELIMITE) 5 % cream Apply from neck down and leave on for 8 hours (avoid genital area), then shower off. 60 g 12/27/2016 12/08/2023 Discontinued prochlorperazine 25 mg rectal suppository (8 sources) Phenothiazine Start: 02-23-2022 End: 03-10-2022 Prochlorperazine (Compro) 25 mg suppository Discontinued 25 mg RC TWICE A DAY as needed for nausea and vomiting 2 0 February 23, 2022 1:00am March 10, 2022 9:28am Risankizumab-Rzaa (Skyrizi) 360 mg/2.4 mL (150 mg/mL) wearable injector (14 sources) Start: 01-03-2024 End: 11-21-2024 Risankizumab-Rzaa (Skyrizi) 360 mg/2.4 mL (150 mg/mL) wearable injector Discontinued 360 mg SC every 8 weeks 2.4 January 03, 2024 7:48am November 21, 2024 10:44am Start: 01-03-2024 Risankizumab-R zaa (Skyrizi) 360 mg/2.4 mL (150 mg/mL) wearable injector Active 360 mg SC every 8 weeks 2.4 January 03, 2024 7:48am Start: 12-08-2022 End: 01-03-2024 Risankizumab-Rzaa (Skyrizi) 360 mg/2.4 mL (150 mg/mL) wearable injector Discontinued 360 mg SC every 8 weeks 2.4 December 08, 2022 10:39am January 03, 2024 7:48am Start: 12-08-2022 End: 01-03-2024 Risankizumab-Rzaa (Skyrizi) 360 mg/2.4 mL (150 mg/mL) wearable injector Discontinued 360 mg SC every 8 weeks 2.4 December 08, 2022 10:39am January 03, 2024 7:48am Start: 12-08-2022 Risankizumab-R zaa (Skyrizi) 360 mg/2.4 mL (150 mg/mL) wearable injector Active 360 MG SC every 8 weeks 2.4 December 08, 2022 9:39am Start: 12-08-2022 End: 12-08-2022 Risankizumab-Rzaa (Skyrizi) 360 mg/2.4 mL (150 mg/mL) wearable injector Discontinued 360 mg SC every 8 weeks 2.4 December 08, 2022 8:05am December 08, 2022 10:39am Start: 12-08-2022 End: 12-08-2022 Risankizumab-Rzaa (Skyrizi) 360 mg/2.4 mL (150 mg/mL) wearable injector Discontinued 360 mg SC every 8 weeks 2.4 December 08, 2022 8:05am December 08, 2022 10:39am Start: 12-08-2022 End: 12-08-2022 Risankizumab-Rzaa (Skyrizi) 360 mg/2.4 mL (150 mg/mL) wearable injector Discontinued 360 MG SC every 8 weeks 2.4 December 08, 2022 7:05am December 08, 2022 9:39am Start: 05-02-2022 End: 12-08-2022 Risankizumab-Rzaa (Skyrizi) 360 mg/2.4 mL (150 mg/mL) wearable injector Discontinued 360 mg SC every 8 weeks 2.4 6 May 02, 2022 1:00am December 08, 2022 8:05am Utilize one auto-injector for SQ administration starting on week 12 and then every 8 weeks Start: 05-02-2022 End: 12-08-2022 Risankizumab-Rzaa (Skyrizi) 360 mg/2.4 mL (150 mg/mL) wearable injector Discontinued 360 mg SC every 8 weeks 2.4 May 02, 2022 1:00am December 08, 2022 8:05am Utilize one auto-injector for SQ administration starting on week 12 and then every 8 weeks Start: 05-02-2022 End: 12-08-2022 Risankizumab-Rzaa (Skyrizi) 360 mg/2.4 mL (150 mg/mL) wearable injector Discontinued 360 MG SC every 8 weeks 2.4 May 02, 2022 12:00am December 08, 2022 7:05am Utilize one auto-injector for SQ administration starting on week 12 and then every 8 weeks Start: 05-02-2022 Risankizumab-R zaa (Skyrizi) 360 mg/2.4 mL (150 mg/mL) wearable injector Active 360 MG SC every 8 weeks 2.4 May 02, 2022 1:00am Utilize one auto-injector for SQ administration starting on week 12 and then every 8 weeks Risankizumab-Rzaa (Skyrizi) 60 mg/mL solution (6 sources) Start: 05-02-2022 End: 12-08-2022 Risankizumab-Rzaa (Skyrizi) 60 mg/mL solution Discontinued 600 mg .ROUTE .COMPLEX 10 0 May 02, 2022 1:00am December 08, 2022 8:05am Infuse 600mg over one hour for IV infusion on week 0, week 4 and week 8. Start: 05-02-2022 End: 12-08-2022 Risankizumab-Rzaa (Skyrizi) 60 mg/mL solution Discontinued 600 mg .ROUTE .COMPLEX 10 May 02, 2022 1:00am December 08, 2022 8:05am Infuse 600mg over one hour for IV infusion on week 0, week 4 and week 8. Start: 05-02-2022 End: 12-08-2022 Risankizumab-Rzaa (Skyrizi) 60 mg/mL solution Discontinued 600 MG .ROUTE .COMPLEX 10 May 02, 2022 12:00am December 08, 2022 7:05am Infuse 600mg over one hour for IV infusion on week 0, week 4 and week 8. Start: 05-02-2022 Risankizumab-R zaa (Skyrizi) 60 mg/mL solution Active 600 MG .ROUTE .COMPLEX 10 May 02, 2022 1:00am Infuse 600mg over one hour for IV infusion on week 0, week 4 and week 8. SUMAtriptan 50 mg oral tablet (3 sources) Serotonin-1b and Serotonin-1d Receptor Agonist Start: 10-06-2022 End: 08-28-2023 Sumatriptan Succinate 50 mg tablet Discontinued mg PO October 06, 2022 12:00am August 28, 2023 8:59am Start: 10-06-2022 Sumatriptan Lau ccinate Active MG PO October 05, 2022 11:00pm VITAMIN A ORAL (2 sources) End: 12-08-2023 VITAMIN A ORAL Take by mouth one time only. 12/08/2023 Discontinued VITAMIN A ORAL T manoj by mouth one time only. 0 Active Problems Active Problems Problem Classification Problem Date Documented Da te Episodic/Chronic Abdominal pain (20 sources) Epigastric pain; Translations: [Epigastric pain] Episodic Anxiety disorders (2 sources) Anxiety; Translations: [Anxiety disorder, unspecified] 04-04-2024 Chronic Comment on above: MARNI 7 completed and reviewed with patient-10; mild to moderate anxiety; today MARNI 7 a score of 1. MARNI 7 completed and reviewed with patient-10; mild to moderate anxiety; situational to work E Codes: Cut/pierceb (2 sources) Contact with contaminated hypodermic needle, initial encounter; Translations: [Accidental needlestick injury with exposure to body fluid] 09-12-2023 Episodic Inflammation; infection of eye (except that caused by tuberculosis or sexually transmitteddisease) (2 sources) Iritis; Translations: [Recurrent acute iridocyclitis, right eye] Onset: 12-09-2023 12-09-2023 Episodic Nonspecific chest pain (3 sources) Acute chest pain; Translations: [Chest pain, unspecified] 01-09-2023 Episodic Other bone disease and musculoskeletal deformities (2 sources) Bilateral calcaneal apophysitis; Translations: [Juvenile osteochondrosis of tarsus, right ankle] Onset: 08-12-2014 08-12-2014 Chronic Other eye disorders (3 sources) Disorder of sclera; Translations: [Unspecified disorder of sclera] Onset: 06-16-2011 06-16-2011 Episodic Other gastrointestinal disorders (11 sources) Celiac disease; Translations: [Celiac disease] Onset: 12-08-2023 12-23-2021 Chronic Other gastrointestinal disorders (8 sources) Celiac disease; Translations: [Celiac disease] Chronic Other gastrointestinal disorders (16 sources) Constipation; Translations: [Constipation, unspecified] 09-01-2021 Episodic Other gastrointestinal disorders (10 sources) Constipation, unspecified; Translations: [Constipation, unspecified] Episodic Other gastrointestinal disorders (7 sources) Constipation alternates with diarrhea; Translations: [Other specified symptoms and signs involving the digestive system and abdomen] 03-10-2022 Episodic Other gastrointestinal disorders (7 sources) Ulceration of small intestine; Translations: [Ulcer of intestine] 03-10-2022 Episodic Other gastrointestinal disorders (2 sources) Other specified symptoms and signs involving the digestive system and abdomen; Translations: [Other symptoms involving digestive system] Episodic Other gastrointestinal disorders (2 sources) Ulcer of intestine; Translations: [Ulceration of intestine] Episodic Other skin disorders (2 sources) Loss of hair; Translations: [Nonscarring hair loss, unspecified] Onset: 12-09-2023 12-08-2023 Episodic Regional enteritis and ulcerative colitis (13 sources) Crohn's disease; Translations: [Crohn's disease, unspecified, without complications] Onset: 12-08-2023 03-17-2022 Chronic Unclassified (1 source) Encounter for testing for latent tuberculosis infection; Translations: [Encounter for testing for latent tuberculosis infection] Onset: 02-20-2024 Past or Other Problems Problem Classification Problem Date Documented Date Episodic/Chronic Immunizations and screening for infectious disease (3 sources) Antibody studies abnormal; Translations: [Other specified abnormal immunological findings in serum] Onset: 12-08-2023 12-08-2023 Episodic Skin and subcutaneous tissue infections (1 source) Cutaneous abscess of face; Translations: [Cutaneous abscess of face] Onset: 02-27-2024 Episodic Results Test Name Value Interpretation Reference Range Facility Cvor Nurse Office Visit Reporton 11-21-2024 Cvor Nurse Office Visit Report [facility]'[address], [address] [place] [address] OFFICE VISIT Date of Service: 11/21/24 MR#: [id number] Acct: [id number] Name: LEOBARDO COLIN Rep #: [id number] : 2000 Provider: MOSHE Conn Age/Sex: 24/F [place] [facility] [place]: Signed Intake Vital Signs 04/04/24 14:42 11/21/24 10:41 Height 5 ft 8 in 5 ft 8 in Weight: 151 lb 147 lb 6 oz BMI 22.9 22.4 BP 114/73 110/77 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 Is patient in pain?: No Allergies adalimumab (From Humira) Allergy (Verified 11/21/24 10:43) Rash gluten Adverse Reaction (Verified 11/21/24 10:43) Other Medications ???Medication ???Instructions ???Recorded ???Confirmed ???Type norgestimate-ethinyl estradiol 1 tab PO DAILY 07/22/21 11/21/24 H istory 0.18mg/0.215mg/0.25mg-0.035 mg(28)tablet (Tri-Estarylla) prednisolone acetate 1 % eye 1 drp RIGHT EYE BID PRN redness 11/21/24 History drops,suspension topiramate 25 mg tablet (Topamax) 25 mg PO BID 08/28/23 11/21/24 Hi story doxycycline hyclate 20 mg tablet 20 mg PO BID 09/12/23 11/21/24 His tory dicyclomine 10 mg capsule 10 mg PO BID PRN 03/01/24 11/21/24 History upadacitinib 45 mg tablet,extended 45 mg PO QDAY 12 weeks #84 tabs 11/12/24 11/21/24 Rx release 24 hr (Rinvoq) buspirone 5 mg tablet 5 mg PO TID 90 days #270 tabs 11/1111/21/24 Rx Is last menstrual period known: Yes Last Menstrual Period: 10/21/24 Post menopausal: No Patient : No : No Control Method: ocp PFSH Medical History MRSA (methicillin resistant staph aureus) culture positive Ulcer of small intestine Abdominal pain Alternating constipation and diarrhea Wears contact lenses Wears glasses Anemia History of echocardiogram Myalgia Constipation Epigastric pain Uveitis Positive MONROE (antinuclear antibody) Exercise-induced asthma Eyelid eczema Acne Surgical History History of wisdom tooth extraction Family History Uncle Colon cancer Grandfather Bone cancer Grandmother CVA (cerebral vascular accident) Uncle Myocardial infarction Social History adopted: No current occupational status: employed sexually active: No Smoking Status: Never smoker alcohol intake: never substance use type: does not use caffeine: Yes Type: carbonated beverages and tea barry/jew: Scientology seatbelt use: always do you feel safe at home: Yes HPI Encounter for routine gynecological examination Details: LEOBARDO COLIN is a 24 year old who presents for annual exam. Reports she continues with anxiety; feels this is related to work and a new job. Taking buspirone compliantly. She is otherwise doing well. Last PAP: 2023; normal. History of abnormal PAP: no Last mammogram: age 42 History of abnormal mammogram: n/a Colon cancer screening: age 47 Other preventative health care screenings: Mitali Alonzo; PCP Female Reproductive History Last Menstrual Period: 10/21/24 Cycle Length: 21-35 Questions: metrorrhagia: No, sexually active: Yes, dyspareunia: No and PCB: No ROS Const Constitutional: Denies chills, fatigue, fever(s), headache(s) or weight loss Eyes Eyes: Denies change in vision ENT ENT: Denies dizziness Cardio Card: Denies chest pain at rest or palpitations Resp Resp: Denies cough or dyspnea GI GI: Denies abdominal pain, constipation or nausea : Denies difficulty voiding, dysuria, hematuria, nipple discharge, pelvic pain, prolapse symptoms, urinary incontinence, vaginal discharge, vaginal dryness, vaginal odor or vaginal pruritus Skin Skin/Breast: Denies alopecia, rash, breast mass, breast pain, breast skin changes or nipple discharge Neuro Neuro: Denies dizziness Psych Psych: Reports anxiety; Denies depression Endo Endo: Denies cold intolerance, excessive sweating or heat intolerance Exam Const General: cooperative, healthy appearing, comfortable, no acute distress, well groomed and well hydrated Nutritional Appearance: well nourished Orientation: alert, awake and oriented x3 HENMT Head: normal to inspection and normocephalic Ears: hearing grossly normal bilaterally and external ears normal Nose: external nose normal Face and sinus: normal facial exam Eyes General: appearance normal, both eyes and all related structures Neck Neck: normal visual inspection, full ROM and no lymphadenopathy Thyroid: thyroid normal Chest Chest palpation inspection: normal inspection of the chest Breast inspection: normal inspection of the breasts and normal inspe (more content not included)... Normal [facility] Absolute lymphocyte countOrd ered By: Leobardo Hanks on 10-01-2024 Lymphocytes Auto (Unsp spec) [#/Vol] 1.88 10*3/uL 0.83-4.51 [facility] Absolute neutrophil countOrd ered By: Leobardo Hanks on 10-01-2024 Neutrophils (Bld) [#/Vol] 1.9 10*3/uL Low 2.0-7.7 [facility] Absolute nucleated red blood cell countOrdered By: Leobardo Hanks on 10-01-2024 Nucleated RBC (Bld) [#/Vol] 0.00 10*3/uL 0-5 [facility] Anion gap in Serum or Plasma Ordered By: Leobardochester Hanks on 10-01-2024 Anion gap [Moles/Vol] 11 mmol/L 5-15 [facility] BUN/creatinine ratioOrdered By: Leobardochester Hanks on 10-01-2024 Urea nitrogen/Creatinine [Mass ratio] 19.2 mg/mg 10-20 [facility] Bilirubin directOrdered By: Leobardochester Hanks on 10-01-2024 Bilirubin.direct [Mass/Vol] 0.12 mg/dL 0.00-0.30 [facility] Bilirubin, totalOrdered By: [facility] on 10-01-2024 Bilirubin [Mass/Vol] 0.22 mg/dL 0.00-1.30 [facility] Blood band neutrophil count as percentage of total leukocytesOrdered By: Leobardochester Hanks on 10-01-2024 Band form neutrophils/100 WBC (Bld) 44.8 % Low 47-70 [facility] CBC, Employeeon 10-01-2024 Absolute Lymph 1.88 X10 3/uL Normal 0.83-4.51 [facility] Comment on above: Performed By: #### M 100.3000, M1 #### [facility] [address] [place], [address] Absolute Neut 1.9 X10 3/uL Low 2.0-7.7 [facility] Comment on above: Performed By: #### M 100.3000, M1 #### [facility] [address] [place], [address] Basophils/100 WBC (Bld) 0.7 % Normal 0-1 [facility] Comment on above: Performed By: #### M 100.3000, #### [facility] [address] [place], [address] Eosinophils/100 WBC (Bld) 2.6 % Normal 0-5 [facility] Comment on above: Performed By: #### M 100.3000, #### [facility] [address] [place], [address] Erythrocyte distribution width (RBC) [Ratio] 13.2 % Normal 11.6-14.6 [facility] Comment on above: Performed By: #### M 100.3000, #### [facility] [address] [place], [address] Hematocrit (Bld) [Volume fraction] 42.7 % Normal 37-47 [facility] Comment on above: Performed By: #### M 100.3000, #### [facility] [address] [place], [address] Hemoglobin (Bld) [Mass/Vol] 13.8 g/dL Normal 12.0-15.0 [facility] Comment on above: Performed By: #### M 100.3000, #### [facility] [address] [place], [address] Lymphocytes/100 WBC (Bld) 43.8 % High 19-41 [facility] Comment on above: Performed By: #### M 100.3000, #### [facility] [address] [place], [address] MCH (RBC) [Entitic mass] 29.6 pg Normal 27.0-32.0 [facility] Comment on above: Performed By: #### M 100.3000, #### [facility] [address] [place], [address] MCHC (RBC) [Mass/Vol] 32.3 g/dL Normal 32-36 [facility] Comment on above: Performed By: #### M 100.3000, #### [facility] [address] [place], [address] MCV (RBC) [Entitic vol] 91.4 fL Normal 81-99 [facility] Comment on above: Performed By: #### M 100.3000, #### [facility] [address] [place], [address] Monocytes/100 WBC (Bld) 7.9 % Normal 0-10 [facility] Comment on above: Performed By: #### M 100.3000, #### [facility] [address] [place], [address] Neutrophils/100 WBC (Bld) 44.8 % Low 47-70 [facility] Comment on above: Performed By: #### M 100.3000, #### [facility] [address] [place], [address] NRBC # 0.00 10 3/uL Normal 0-5 [facility] Comment on above: Performed By: #### M 100.3000, #### [facility] [address] [place], [address] Nucleated RBC (Bld) [#/Vol] 0 10*3/uL Normal 0-5 [facility] Comment on above: Performed By: #### M 100.3000, #### [facility] [address] [place], [address] Platelet mean volume (Bld) [Entitic vol] 11.1 fL Normal 6.2-12.0 [facility] Comment on above: Performed By: #### M 100.3000, #### [facility] [address] [place], [address] Platelets (Bld) [#/Vol] 229 10*3/uL Normal 150-450 [facility] Comment on above: Performed By: #### M 100.3000, #### [facility] [address] [place], [address] RBC (Bld) [#/Vol] 4.67 10*6/uL Normal 4.2-5.4 [facility] Comment on above: Performed By: #### M 100.3000, #### [facility] [address] [place], [address] RDW SD 44.4 fl High 35.1-43.9 [facility] Comment on above: Performed By: #### M 100.3000, #### [facility] [address] [place], [address] WBC (Bld) [#/Vol] 4.3 10*3/uL Low 4.4-11.0 [facility] Comment on above: Performed By: #### M 100.3000, #### [facility] [address] [place], [address] Calculated very low density lipoprotein (VLDL) cholesterol measurementOrdered By: Leobardo Hanks on 10-01-2024 Calculated very low density lipoprotein (VLDL) cholesterol measurement 18 mg/dL 5-40 [facility] Carbon dioxide, total [Moles /volume] in Central venous bloodOrdered By: Leobardo Hanks on 10-01-2024 CO2 [Moles/Vol] 22.6 mmol/L 21.0-32.0 [facility] Chloride assayOrdered By: Ra trish Hanks on 10-01-2024 Chloride [Moles/Vol] 108 mmol/L 98-108 [facility] Erythrocyte distribution wid th ratioOrdered By: Leobardo Hanks on 10-01-2024 Erythrocyte distribution width (RBC) [Ratio] 13.2 % 11.6-14.6 [facility] Erythrocyte distribution wid th standard deviationOrdered By: Leobardo Hanks on 10-01-2024 Erythrocyte distribution width (RBC) [Ratio] 44.4 fl High 35.1-43.9 [facility] Glomerular filtration rate ( GFR) estimation/1.73 sq m using serum, plasma, or whole bOrdered By: Leobardo Hanks on 10-01-2024 GFR/1.73 sq M.predicted among non-blacks MDRD (S/P/Bld) [Vol rate/Area] 104 mL/min/{1.73_m2} >60 [facility] Comment on above: mL/min/1.73m2 CKD-EP I Creatinine Equation (2020) Hematocrit Auto (Bld) [Volum e fraction]Ordered By: Leobardo Hanks on 10-01-2024 Hematocrit (Bld) [Volume fraction] 42.7 % 37-47 [facility] Hemoglobin measurementOrdere d By: Leobardo Hanks on 10-01-2024 Hemoglobin (Bld) [Mass/Vol] 13.8 g/dL 12.0-15.0 [facility] - Chemistry and C hemistry - challengeOrdered By: Leobardo Hanks 10-01-2024 AST [Catalytic activity/Vol] 16 U/L <32 [facility] Lactate dehydrogenase (LDH) measurementOrdered By: Leobardochester Hanks 10-01-2024 LDH [Catalytic activity/Vol] 151 U/L 84-246 [facility] MCV (mean corpuscular volume ) determinationOrdered By: Leobardo Hanks 10-01-2024 MCV (RBC) [Entitic vol] 91.4 fL 81-99 [facility] Mean corpuscular hemoglobin (MCH) determinationOrdered By: Leobardo Hanks 10-01-2024 MCH (RBC) [Entitic mass] 29.6 pg 27.0-32.0 [facility] Mean corpuscular hemoglobin concentration (MCHC) determinationOrdered By: Leobardo Hanks 10-01-2024 MCHC (RBC) [Mass/Vol] 32.3 g/dL 32-36 [facility] Mean platelet volume determi nationOrdered By: Leobardo Hanks on 10-01-2024 Platelet mean volume (Bld) [Entitic vol] 11.1 fL 6.2-12.0 [facility] Nucleated red blood cell per centageOrdered By: Leobardo Hanks on 10-01-2024 Nucleated RBC/100 WBC (Bld) [Ratio] 0 % 0-5 [facility] Platelet countOrdered By: Ra trish Hanks on 10-01-2024 Platelets (Bld) [#/Vol] 229 10*3/uL 150-450 [facility] Potassium measurement (mass/ volume)Ordered By: Leobardo Hanks on 10-01-2024 Potassium (Unsp spec) [Mass/Vol] 3.8 mmol/L 3.3-5.1 [facility] RBC Auto (Bld) [#/Vol]Ordere d By: Leobardo Hanks on 10-01-2024 RBC (Bld) [#/Vol] 4.67 10*6/uL 4.2-5.4 [facility] Screening total cholesterol/ high density lipoprotein (HDL) cholesterol ratioOrdered By: Leobardo Hanks on 10-01-2024 Cholesterol.total/Chol esterol in HDL [Mass ratio] 1.84 {ratio} [facility] Serum creatinine measurement (mass/volume)Ordered By: Leobardo Hanks on 10-01-2024 Creatinine [Mass/Vol] 0.82 mg/dL 0.70-1.20 [facility] Serum globulin measurementOr dered By: Leobardo Hanks 10-01-2024 Globulin (S) [Mass/Vol] 2.8 g/dL 2.2-4.2 [facility] Serum glucose measurement (m ass/volume)Ordered By: Leobardo Hanks on 10-01-2024 Glucose [Mass/Vol] 68 mg/dL Low 70-99 [facility] Serum or plasma alanine robertson otransferase (ALT) measurementOrdered By: Leobardo Hanks 10-01-2024 ALT [Catalytic activity/Vol] 13 U/L <35 [facility] Serum or plasma albumin bjorn urement (mass/volume)Ordered By: Leobardo Hanks 10-01-2024 Albumin [Mass/Vol] 4.2 g/dL 3.5-5.0 [facility] Serum or plasma albumin/glob ulin mass ratioOrdered By: Leobardochester Hanks on 10-01-2024 Albumin/Globulin [Mass ratio] 1.5 {ratio} 0.9-2.4 [facility] Serum or plasma alkaline trung sphatase measurementOrdered By: Leobardochester Hanks on 10-01-2024 ALP [Catalytic activity/Vol] 64 U/L 35-104 [facility] Serum or plasma calcium bjorn urement (mass/volume)Ordered By: Leobardochester Hanks on 10-01-2024 Calcium [Mass/Vol] 9.4 mg/dL 7.6-11.0 [facility] Serum or plasma cholesterol in HDL measurement (mass/volume)Ordered By: Leobardochester Hanks on 10-01-2024 Cholesterol in HDL [Mass/Vol] 84 mg/dL >40 [facility] Comment on above: National Cholesterol Education Program (NCEP) guidelines:<40 mg/dL: Low HDL-cholesterol (major risk factor for CHD)>= 60 mg/dL: High HDL-cholesterol (negative risk factor for CHD)HDL-cholesterol is affected by a number of factors, e.g. smoking, exercise, hormones, sex and age. Serum or plasma cholesterol in LDL measurement (mass/volume)Ordered By: Leobardo Demario on 10-01-2024 Cholesterol in LDL [Mass/Vol] 52 mg/dL Normal 0-130 [facility] Comment on above: Performed By: #### M 100.3000, M100.2000 #### [facility] [address] [place], [place] [address]all [facility] [place], [place], [address] Serum or plasma cholesterol measurement (mass/volume)Ordered By: Leobardo Hanks on 10-01-2024 Cholesterol [Mass/Vol] 154 mg/dL <191 [facility] Comment on above: Cholesterol level, D esirable <200 mg/dLBorderline high cholesterol 200-239 mg/dLHigh cholesterol >=240 mg/dLRecommendations of the NCEP Adult Treatment Panel for the following risk-cutoff thresholds for the [place] population. Serum or plasma urea nitroge n measurement (mass/volume)Ordered By: Leobardo Hanks on 10-01-2024 Urea nitrogen [Mass/Vol] 16 mg/dL 4-19 [facility] Serum or plasma uric acid me asurement (mass/volume)Ordered By: Leobardo Hanks on 10-01-2024 Urate [Mass/Vol] 3.6 mg/dL 2.6-6.0 [facility] Comment on above: The drugs N-Acetylcy steine and Metamizole may falsely depress this assay. Sodium levelOrdered By: Rhoda Hanks on 10-01-2024 Sodium [Moles/Vol] 142 mmol/L 133-145 [facility] Total proteinOrdered By: Almaz Hanks on 10-01-2024 Protein [Mass/Vol] 7.0 g/dL 5.9-8.4 [facility] Triglycerides measurementOrd ered By: Leobardo Hanks on 10-01-2024 Triglyceride [Mass/Vol] 91 mg/dL <199 [facility] Comment on above: The drugs N-Acetylcy steine and Metamizole may falsely depress this assay. Normal range: <150 mg/dLBorderline High: 150-199 mg/dLHigh: 200-499 mg/dLVery High: >500 mg/dL Urinalysis, Employeeon 10-01 BILIRUBIN URINE Normal Negative [facility] Comment on above: Order Comment: Urine , Random Result Comment: NOT WANTED Performed By: #### M 100.3000, #### [facility] [address] [place], [address] Clarity (U) Normal Clear [facility] Comment on above: Order Comment: Urine , Random Result Comment: NOT WANTED Performed By: #### M 100.3000, #### [facility] [address] [place], [address] Color (U) Normal Yellow [facility] Comment on above: Order Comment: Urine , Random Result Comment: NOT WANTED Performed By: #### M 100.3000, #### [facility] [address] [place], [address] GLUCOSE, UR Normal Normal [facility] Comment on above: Order Comment: Urine , Random Result Comment: NOT WANTED Performed By: #### M 100.3000, #### [facility] [address] [place], [address] KETONE UR Normal Negative [facility] Comment on above: Order Comment: Urine , Random Result Comment: NOT WANTED Performed By: #### M 100.3000, #### [facility] [address] [place], [address] LEUK ESTERASE Normal Negative [facility] Comment on above: Order Comment: Urine , Random Result Comment: NOT WANTED Performed By: #### M 100.3000, #### [facility] [address] [place], [address] Nitrite Ql (U) Normal Negative [facility] Comment on above: Order Comment: Urine , Random Result Comment: NOT WANTED Performed By: #### M 100.3000, #### [facility] [address] [place], [address] OCCULT BLOOD-UR Normal Negative [facility] Comment on above: Order Comment: Urine , Random Result Comment: NOT WANTED Performed By: #### M 100.3000, #### [facility] [address] [place], [address] pH UR Normal 5.0 - 8.0 [facility] Comment on above: Order Comment: Urine , Random Result Comment: NOT WANTED Performed By: #### M 100.3000, #### [facility] [address] [place], [address] PROT DIPSTX Normal Negative [facility] Comment on above: Order Comment: Urine , Random Result Comment: NOT WANTED Performed By: #### M 100.3000, #### [facility] [address] [place], [address] SP.GR. DIPSTX Normal 1.002-1.03 0 [facility] Comment on above: Order Comment: Urine , Random Result Comment: NOT WANTED Performed By: #### M 100.3000, M100.1999 #### [facility] [address] [place], [address] UR Preservative Normal [facility] Comment on above: Order Comment: Urine , Random Result Comment: NOT WANTED Performed By: #### M 100.3000, M100.1999 #### [facility] [address] [place], [address] UROBILI Normal Normal [facility] Comment on above: Order Comment: Urine , Random Result Comment: NOT WANTED Performed By: #### M 100.3000, M100.1999 #### [facility] [address] [place], [address] White blood cell (WBC) count Ordered By: Leobardo Hanks on 10-01-2024 WBC (Bld) [#/Vol] 4.3 10*3/uL Low 4.4-11.0 [facility] Gastroenterology Visit Repor ton 08-27-2024 Gastroenterology Visit Report [facility] [address] [place] [address] OFFICE VISIT Date of Service: 08/27/24 MR#: [id number] Acct: [id number] Name: CRISTIALMAZLEOBARDOCHESTER HALL Rep #: [id number] : 2000 Provider: Tyson Sotelo DO Age/Sex: 24/F [place] [facility] [place]: Signed Intake Vital Signs 01/03/24 15:24 04/04/24 14:42 Height 5 ft 8 in 5 ft 8 in Weight: 151 lb BMI 22.9 BP 114/73 Intake Visit Reasons: 6 M FU Allergies adalimumab (From Humira) Allergy (Verified 04/04/24 14:45) Rash gluten Adverse Reaction (Verified 04/04/24 14:45) Other Medications ???Medication ???Instructions ???Recorded ???Confirmed ???Type norgestimate-ethinyl estradiol 1 tab PO DAILY 07/22/21 08/27/24 H istory 0.18mg/0.215mg/0.25mg-0.035 mg(28)tablet (Tri-Estarylla) prednisolone acetate 1 % eye 1 drp RIGHT EYE BID PRN redness 08/27/24 History drops,suspension topiramate 25 mg tablet (Topamax) 25 mg PO BID 08/28/23 08/27/24 Hi story doxycycline hyclate 20 mg tablet 20 mg PO BID 09/12/23 08/27/24 His tory risankizumab-rzaa 360 mg/2.4 mL 360 mg (2.4 mL) subcut Q8W #2.4 mL 01/03/24 08/27/24 Rx (150 mg/mL) subcut wearable injector (Skyrizi) dicyclomine 10 mg capsule 10 mg PO BID PRN 03/01/24 08/27/24 History buspirone 7.5 mg tablet 7.5 mg PO BID #180 tabs 04/04/24 0 08/27/24 Rx PFSH Medical History MRSA (methicillin resistant staph aureus) culture positive Ulcer of small intestine Abdominal pain Alternating constipation and diarrhea Wears contact lenses Wears glasses Anemia History of echocardiogram Myalgia Constipation Epigastric pain Uveitis Positive MONROE (antinuclear antibody) Exercise-induced asthma Eyelid eczema Acne Surgical History History of wisdom tooth extraction Family History Uncle Colon cancer Grandfather Bone cancer Grandmother CVA (cerebral vascular accident) Uncle Myocardial infarction Social History adopted: No current occupational status: employed sexually active: No Smoking Status: Never smoker alcohol intake: never substance use type: does not use caffeine: Yes Type: carbonated beverages and tea barry/jew: [employer] seatbelt use: always do you feel safe at home: Yes HPI HPI Details: LEOBARDO COLIN, is a 24 F who presents to the office today for follow up. PMH iritis (Dr. Corbett door cutter); psoriasis (Dr. 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 FH RA Prior workup: Biochemical workup ESR, CBC, Lyme (P41 and P23 present), CCP IgG ab without pertinent abnormalities. CRP H5.71, MONROE positive with Anti Cent B ab 6.0. Stool testing calprotectin, pancreatic elastase, H.Pylori and lactoferrin without abnormality. *BGI established 09.01.21 with referral from PCP for positive MONROE with workup for scleroderma; symptom onset and first noted by several episodes of iritis. Seen by rheumatology with no noted skin tightening, photosensitivity, calcinosis, telangiectasias. Noted some Raynauds phenomenon in feet. GI symptoms include epigastric LUQ cramping/discomfort that has always been present but worse since last fall with the inclusion of bloating; each typically following PO intake. No triggers noted, no alleviating factors noted. Constipation present for a while but has worsened in the last 3-4 months and includes pelvic discomfort/pain that is relieved with BM; incomplete evacuation with second movement often needed. Stools are harder and pebble like. No OTC or prescription medications attempted. ? SITZ marker . First Xray four R colon, 19 R colon, none RS colon, total 23 rings. Second Xray five rings RS colon. OV 8.16.22 with change of symptoms to include postprandial abdominal/pelvic pain preceding urgent/soft BM 2-3/day. Biochemical workup ESR, ANCA, GAME, GAVIN without pertinent abnormality. CRP H5.16, Celiac positive Stool testing H.Pylori, calprotectin WNL ? Gastric emptying study 9.8.22 times at 19.10 minutes (normal 12-56). HIDA Scan 10.6.22 EF 98% OV 10.24.22 with symptom improvement with gluten free diet. EGD/Colonoscopy/capsule endoscopy. ? EGD and colonoscopy with capsule placement 02.24.22 EGD without visual abnormality. ? Colonoscopy without pertinent abnormality. ? Capsule endoscopy noting mild celiac changes early in small bowel with mild (more content not included)... Normal [facility] Serum Creatinine AND GFRon 0 04-06-2024 Creatinine [Mass/Vol] 0.98 mg/dL Normal 0.55-1.02 [facility] Comment on above: Result Comment: The validity of the calculated GFR GFRAA in patients over 70 years has not been determined. Clinical correlation is essential. Performed By: #### M 100.3000, M1.1999 #### [facility] [address] [place], [address] EST GFR - AA 92 mL/min Normal >60 [facility] Comment on above: Result Comment: Afri can [place] GFR Calc Performed By: #### M 100.3000, M1.1999 #### [facility] [address] [place], [address] GFR/1.73 sq M.predicted among non-blacks MDRD (S/P/Bld) [Vol rate/Area] 76 mL/min/{1.73_m2} Normal >60 [facility] Comment on above: Result Comment: Non- GFR Calc Performed By: #### M 100.3000, M100.1999 #### [facility] [address] [place], [address] CBC W/Diff, Automatedon 01-2 Absolute Lymph 2.32 X10 3/uL Normal 0.83-4.51 [facility] Comment on above: Performed By: #### L 501.6710, L100.0100, L501.1105, L101.9900, L500.3400 #### [facility] [address] [place], [address] Absolute Neut 2.3 X10 3/uL Normal 2.0-7.7 [facility] Comment on above: Performed By: #### L 501.6710, L100.0100, L501.1105, L101.9900, L500.3400 #### [facility] [address] [place], [address] Basophils/100 WBC (Bld) 0.4 % Normal 0-1 [facility] Comment on above: Performed By: #### L 501.6710, L100.0100, L501.1105, L101.9900, L500.3400 #### [facility] [address] [place], [address] Eosinophils/100 WBC (Bld) 2.2 % Normal 0-5 [facility] Comment on above: Performed By: #### L 501.6710, L100.0100, L501.1105, L101.9900, L500.3400 #### [facility] [address] [place], [address] Erythrocyte distribution width (RBC) [Ratio] 13.4 % Normal 11.6-14.6 [facility] Comment on above: Performed By: #### L 501.6710, L100.0100, L501.1105, L101.9900, L500.3400 #### [facility] [address] [place], [address] Hematocrit (Bld) [Volume fraction] 42.3 % Normal 37-47 [facility] Comment on above: Performed By: #### L 501.6710, L100.0100, L501.1105, L101.9900, L500.3400 #### [facility] [address] [place], [address] Hemoglobin (Bld) [Mass/Vol] 14.2 g/dL Normal 12.0-15.0 [facility] Comment on above: Performed By: #### L 501.6710, L100.0100, L501.1105, L101.9900, L500.3400 #### [facility] [address] [place], [address] IG% 0.200 Normal 0.0-0.9 [facility] Comment on above: Result Comment: IG% - Immature Granulocytes (promyelocytes, myelocytes and metamyelocytes) > 1% indicates that a LEFT SHIFT is Present. Performed By: #### L 501.6710, L100.0100, L501.1105, L101.9900, L500.3400 #### [facility] [address] [place], [address] Lymphocytes/100 WBC (Bld) 46.6 % High 19-41 [facility] Comment on above: Performed By: #### L 501.6710, L100.0100, L501.1105, L101.9900, L500.3400 #### [facility] [address] [place], [address] MCH (RBC) [Entitic mass] 29.5 pg Normal 27.0-32.0 [facility] Comment on above: Performed By: #### L 501.6710, L100.0100, L501.1105, L101.9900, L500.3400 #### [facility] [address] [place], [address] MCHC (RBC) [Mass/Vol] 33.6 g/dL Normal 32-36 [facility] Comment on above: Performed By: #### L 501.6710, L100.0100, L501.1105, L101.9900, L500.3400 #### [facility] [address] [place], [address] MCV (RBC) [Entitic vol] 87.8 fL Normal 81-99 [facility] Comment on above: Performed By: #### L 501.6710, L100.0100, L501.1105, L101.9900, L500.3400 #### [facility] [address] [place], [address] Monocytes/100 WBC (Bld) 5.2 % Normal 0-10 [facility] Comment on above: Performed By: #### L 501.6710, L100.0100, L501.1105, L101.9900, L500.3400 #### [facility] [address] [place], [address] Neutrophils/100 WBC (Bld) 45.4 % Low 47-70 [facility] Comment on above: Performed By: #### L 501.6710, L100.0100, L501.1105, L101.9900, L500.3400 #### [facility] [address] [place], [address] Nucleated RBC (Bld) [#/Vol] 0 10*3/uL Normal 0-5 [facility] Comment on above: Performed By: #### L 501.6710, L100.0100, L501.1105, L101.9900, L500.3400 #### [facility] [address] [place], [address] Platelet mean volume (Bld) [Entitic vol] 11.2 fL Normal 6.2-12.0 [facility] Comment on above: Performed By: #### L 501.6710, L100.0100, L501.1105, L101.9900, L500.3400 #### [facility] [address] [place], [address] Platelets (Bld) [#/Vol] 239 10*3/uL Normal 150-450 [facility] Comment on above: Performed By: #### L 501.6710, L100.0100, L501.1105, L101.9900, L500.3400 #### [facility] [address] [place], [address] RBC (Bld) [#/Vol] 4.82 10*6/uL Normal 4.2-5.4 [facility] Comment on above: Performed By: #### L 501.6710, L100.0100, L501.1105, L101.9900, L500.3400 #### [facility] [address] [place], [address] RDW SD 43.5 fl Normal 35.1-43.9 [facility] Comment on above: Performed By: #### L 501.6710, L100.0100, L501.1105, L101.9900, L500.3400 #### [facility] [address] [place], [address] WBC (Bld) [#/Vol] 5.0 10*3/uL Normal 4.4-11.0 [facility] Comment on above: Performed By: #### L 501.6710, L100.0100, L501.1105, L101.9900, L500.3400 #### [facility] [address] [place], [address] CRPon 04-05-2024 C-REACTIVE PROT < 2.90 Normal 0.0-3.0 [facility] Comment on above: Result Comment: C-Re active Protein (CRP) provides useful information for the diagnosis, therapy and monitoring of inflammatory processes and associated diseases. For the evaluation of Relative Risk for Cardiovascular Disease, a High Sensitivity CRP (HSCRP) should be ordered. Performed By: #### M 100.3000, M100.2000 #### [facility] [address] [place], [address] Erythrocyte Sed Rateon 04-05 SED RATE < 1 Normal 0-30 [facility] Comment on above: Performed By: #### L 501.6710, L100.0100, L501.1105, L101.9900, L500.3400 #### [facility] [address] [place], [address] Foot min 3 Viewson 5 Foot min 3 Views [facility] Imaging Services [address] [place] [address] Foot min 3 Views MR#: [id number] Acct: [id number] Name: LEOBARDO COLIN Rep #: [id number] : 2000 F 23 From: Nomi Antonio MD PCP: Dr. Mitali Alonzo MD Status: REG CLI Study: Foot min 3 Views Date of Exam: 04/05/24 Exam# [id number] Ordering Dr: Doris Walden MD [id number] STUDY: X-RAY - RIGHT FOOT CLINICAL: Female, 23 years old. MYALGIA, OTHER SITE TECHNIQUE: 3 views of the right foot. COMPARISON: None. FINDINGS: Normal talus, calcaneus, and tarsal bones. Normal visualized subtalar, talonavicular, calcaneocuboid, tarsal and tarsometatarsal articulations. Normal metatarsi. Normal metatarsophalangeal joint of the great toe. Normal tibial and fibular sesamoid bones. Normal interphalangeal joint of the great toe. Normal phalanges of the great toe. Normal second through fifth metatarsophalangeal joints. Normal interphalangeal joints and phalanges of the lesser toes. The soft tissue structures are unremarkable. There is no demonstrated fracture. RAD/Foot min 3 Views IMPRESSION: Normal x-ray examination of the right foot. Electronically Signed: Nomi Antonio MD at 9:34 EST , CC: Dr. Doris Walden MD; Dr. Mitali Alonzo MD Feather Washer: Signed Normal [facility] Foot min 3 Views [facility] Imaging Services [address] [place] [address] Foot min 3 Views MR#: [id number] Acct: [id number] Name: LEOBARDO COLIN Rep #: [id number] : 2000 F 23 From: Nomi Antonio MD PCP: Dr. Mitali Alonzo MD Status: REG CLI Study: Foot min 3 Views Date of Exam: 04/05/24 Exam# [id number] Ordering Dr: Doris Walden MD [id number] STUDY: X-RAY - LEFT FOOT CLINICAL: Female, 23 years old. MYALGIA, BUMPS ON BOTH FEET FOR 2 YEARS TECHNIQUE: 3 views of the left foot. COMPARISON: None. FINDINGS: Normal talus, calcaneus, and tarsal bones. Normal visualized subtalar, talonavicular, calcaneocuboid, tarsal and tarsometatarsal articulations. Normal metatarsi. Normal metatarsophalangeal joint of the great toe. Normal tibial and fibular sesamoid bones. Normal interphalangeal joint of the great toe. Normal phalanges of the great toe. Normal second through fifth metatarsophalangeal joints. Normal interphalangeal joints and phalanges of the lesser toes. The soft tissue structures are unremarkable. There is no demonstrated fracture. RAD/Foot min 3 Views IMPRESSION: Normal x-ray examination of the left foot. Electronically Signed: Nomi Antonio MD at 9:35 EST , CC: Dr. Doris Walden MD; Dr. Mitali Alonzo MD Feather Washer: Signed Normal [facility] Hand Min 3 Viewson 5 Hand Min 3 Views [facility] Imaging Services [address] [place] [address] Hand Min 3 Views MR#: [id number] Acct: [id number] Name: LEOBARDO COLIN Rep #: [id number] : 2000 F 23 From: Nomi Antonio MD PCP: Dr. Mitali Alonzo MD Status: REG CLI Study: Hand Min 3 Views Date of Exam: 04/05/24 Exam# [id number] Ordering Dr: Doris Walden MD [id number] STUDY: X-RAY - LEFT HAND REASON FOR EXAM: Female, 23 years old. MYALGIA, BUMPS ON RIGHT HAND X 2 MONTHS TECHNIQUE: 3 views of the left hand. COMPARISON: None. FINDINGS: Normal radiocarpal articulation. Normal distal radioulnar joint. Normal visualized carpal bones. Normal carpal articulations. Normal carpometacarpal articulation of the thumb. Normal second through fifth carpometacarpal joints. Normal metacarpi. Normal metacarpophalangeal joint of the thumb. Normal interphalangeal joint of the thumb. Normal proximal and distal phalanges of the thumb. Normal metacarpophalangeal joints of the second through fifth fingers. Normal proximal and distal interphalangeal joints of the second through fifth fingers. Normal phalanges of the second through fifth fingers. The soft tissue structures are unremarkable. RAD/Hand Min 3 Views IMPRESSION: Normal x-ray examination of the left hand. Electronically Signed: Nomi Antonio MD at 9:39 EST , CC: Dr. Doris Walden MD; Dr. Mitali Alonzo MD Feather Washer: Signed Normal [facility] Hand Min 3 Views [facility] Imaging Services [address] [place] [address] Hand Min 3 Views MR#: [id number] Acct: [id number] Name: LEOBARDO COLIN Rep #: [id number] : 2000 F 23 From: Nomi Antonio MD PCP: Dr. Mitali Alonzo MD Status: REG CLI Study: Hand Min 3 Views Date of Exam: 04/05/24 Exam# [id number] Ordering Dr: Doris Walden MD [id number] STUDY: X-RAY - RIGHT HAND REASON FOR EXAM: Female, 23 years old. MYALGIA, BUMPS ON RIGHT HAND X 2 MONTHS. TECHNIQUE: 3 views of the right hand. COMPARISON: None. FINDINGS: Normal radiocarpal articulation. Normal distal radioulnar joint. Normal visualized carpal bones. Normal carpal articulations. Normal carpometacarpal articulation of the thumb. Normal second through fifth carpometacarpal joints. Normal metacarpi. Normal metacarpophalangeal joint of the thumb. Normal interphalangeal joint of the thumb. Normal proximal and distal phalanges of the thumb. Normal metacarpophalangeal joints of the second through fifth fingers. Normal proximal and distal interphalangeal joints of the second through fifth fingers. Normal phalanges of the second through fifth fingers. The soft tissue structures are unremarkable. RAD/Hand Min 3 Views IMPRESSION: Normal x-ray examination of the right hand. Electronically Signed: oNmi Antonio MD at 9:44 EST , CC: Dr. Doris Walden MD; Dr. Mitali Alonzo MD Feather Washer: Signed Normal [facility] Liver Profileon 04-05-2024 Albumin [Mass/Vol] 3.8 g/dL Normal 3.2-5.0 [facility] Comment on above: Performed By: #### M 100.3000, #### [facility] [address] [place], [address] ALK P 52 U/L Normal 45-117 [facility] Comment on above: Performed By: #### M 100.3000, #### [facility] [address] [place], [address] ALT [Catalytic activity/Vol] 15 U/L Normal 13-56 [facility] Comment on above: Performed By: #### M 100.3000, #### [facility] [address] [place], [address] AST [Catalytic activity/Vol] 7 U/L Low 15-37 [facility] Comment on above: Performed By: #### M 100.3000, #### [facility] [address] [place], [address] Bilirubin [Mass/Vol] 0.40 mg/dL Normal 0.20-1.00 [facility] Comment on above: Result Comment: For patients on eltrombopag therapy, use of Dimension [place] TBIL is not recommended. Performed By: #### M 100.3000, #### [facility] [address] [place], [address] Bilirubin.direct [Mass/Vol] 0.12 mg/dL Normal 0.00-0.30 [facility] Comment on above: Performed By: #### M 100.3000, #### [facility] [address] [place], [address] Globulin (S) [Mass/Vol] 3.6 g/dL Normal 2.2-4.2 [facility] Comment on above: Performed By: #### M 100.3000, M100.1999 #### [facility] [address] [place], [address] T PROT 7.4 g/dL Normal 6.4-8.2 [facility] Comment on above: Performed By: #### M 100.3000, M100.1999 #### [facility] [address] [place], [address] Pelvis 1 or 2 Viewson 2024 Pelvis 1 or 2 Views [facility] Imaging Services [address] [place] [address] Pelvis 1 or 2 Views MR#: [id number] Acct: [id number] Name: LEOBARDO COLIN Rep #: [id number] : 2000 F 23 From: Renard lao MD PCP: Dr. Mitali Alonzo MD Status: REG CLI Study: Pelvis 1 or 2 Views Date of Exam: 04/05/24 Exam# [id number] Ordering Dr: Doris Walden MD [id number] STUDY: X-RAY - PELVIS REASON FOR EXAM: Female, 23 years old. MYALGIA,OTHER SITE -- AP PELVIS-W FROG VIEW TECHNIQUE: One view of the pelvis was obtained. COMPARISON: None. FINDINGS: There is a non-specific bowel gas pattern. Normal visualized soft tissue structures. No fracture or displaced bony fragment is present. No demonstrated sclerosis or osteophyte formation of the SI joints. Normal bilateral iliac wings, sacroiliac joints and visualized sacrum. Normal visualized bilateral superior and inferior pubic rami. There are minimal degenerative changes of the pubic symphysis with articular narrowing and sclerosis. Normal ischial tuberosities. Normal visualized right femoral head. Normal right acetabulum. Normal right hip joint. Normal visualized left femoral head. Normal left acetabulum. Normal left hip joint. RAD/Pelvis 1 or 2 Views IMPRESSION: 1. Minimal degenerative changes of the pubic symphysis. The remaining structures are normal. Electronically Signed: Renard Beckwith MD at 9:23 EST Reading Location ID and State: [facility] / [place] , Service support , CC: Dr. Doris Walden MD; Dr. Mitali Alonzo MD Feather Washer: Signed Normal [facility] Cvor Nurse Office Visit Reporton 04-04-2024 Cvor Nurse Office Visit Report [facility]'s [address], [address] [place] [address] OFFICE VISIT Date of Service: 04/04/24 MR#: [id number] Acct: [id number] Name: LEOBARDO COLIN Rep #: [id number] : 2000 Provider: MOSHE Conn Age/Sex: 23/F [place] [facility] [place] Status: Signed Intake Vital Signs 01/03/24 15:24 04/04/24 14:42 Height 5 ft 8 in 5 ft 8 in Weight: 151 lb BMI 22.9 BP 114/73 Intake Visit Reasons: 3 m f/u Control Equipment Electrician Required: No Is patient in pain?: No Feel stressed/tense/nervous/anxi ous/difficulty sleeping: not at all (feeling much better after increase in buspirone) Allergies adalimumab (From Humira) Allergy (Verified 04/04/24 14:45) Rash gluten Adverse Reaction (Verified 04/04/24 14:45) Other Medications ???Medication ???Instructions ???Recorded ???Confirmed ???Type norgestimate-ethinyl estradiol 1 tab PO DAILY 07/22/21 04/04/24 History 0.18 mg/0.215mg/0.25mg-35 mcg(28)tablet (Tri-Estarylla) prednisolone acetate 1 % eye 1 drp RIGHT EYE BID PRN redness 02/22/22 04/04/24 History drops,suspension topiramate 25 mg tablet (Topamax) 25 mg PO BID 08/28/23 04/04/24 History doxycycline hyclate 20 mg tablet 20 mg PO BID 09/12/23 04/04/24 History risankizumab-rzaa 360 mg/2.4 mL 360 mg (2.4 mL) subcut Q8W #2.4 mL 01/03/24 04/04/24 Rx (150 mg/mL) subcut wearable injector (Skyrizi) dicyclomine 10 mg capsule 10 mg PO BID PRN 03/01/24 04/04/24 History buspirone 7.5 mg tablet 7.5 mg PO BID #180 tabs 04/04/24 04/04/24 Rx Post menopausal: No Patient : No : No PFSH Medical History MRSA (methicillin resistant staph aureus) culture positive Ulcer of small intestine Abdominal pain Alternating constipation and diarrhea Wears contact lenses Wears glasses Anemia History of echocardiogram Myalgia Constipation Epigastric pain Uveitis Positive MONROE (antinuclear antibody) Exercise-induced asthma Eyelid eczema Acne Surgical History History of wisdom tooth extraction Family History Uncle Colon cancer Grandfather Bone cancer Grandmother CVA (cerebral vascular accident) Uncle Myocardial infarction Social History adopted: No current occupational status: employed sexually active: No Smoking Status: Never smoker alcohol intake: never substance use type: does not use caffeine: Yes Type: carbonated beverages and tea barry/jew: Scient[employer] seatbelt use: always do you feel safe at home: Yes HPI 3 m f/u Details: LEOBARDO COLIN is a 23 year old who presents for anxiety follow up after starting buspar. She is doing well; dosing increased to 7.5mg at last visit in December. Taking compliantly; denies side effects; and would like to continue. ROS Const Constitutional: Denies chills, fatigue, fever(s), headache(s) or weight loss Eyes Eyes: Denies change in vision ENT ENT: Denies dizziness Resp Resp: Denies cough GI GI: Denies abdominal pain, constipation or nausea Neuro Neuro: Denies dizziness Psych Psych: Reports anxiety (improved on medication); Denies depression Endo Endo: Denies cold intolerance, excessive sweating or heat intolerance Exam Const General: cooperative, healthy appearing, comfortable, no acute distress, well groomed and well hydrated Nutritional Appearance: well nourished Orientation: alert, awake and oriented x3 HENMT Head: normal to inspection and normocephalic Ears: hearing grossly normal bilaterally and external ears normal Nose: external nose normal Face and sinus: normal facial exam Eyes General: appearance normal, both eyes and all related structures Resp Effort Inspection: normal respiratory effort, able to speak in complete sentences and symmetric chest movement Cardio Rate: regular rate Rhythm: regular rhythm Neuro General: patient alert, patient awake, patient oriented x3 and moves all extremities Psych Appearance: grossly normal Mental Status: mental status grossly normal Affect: normal affect Speech and Movement: speech and movement normal Attitude: cooperative Coding Level of Care Code Established Pt Off vis,est,level 3 Patient Type Established Diagnoses Anxiety F41.9 Additional Codes MARNI-7 (06012) Assessment and Plan Assessment and Plan (1) Anxiety: Status: Acute Comment: MARNI 7 completed and reviewed with patient-10; mild to moderate anxiety; today MARNI 7 a score of 1. Plan: improved on Buspar and doing well with this. Continue; refills placed. Follow up with annual visit in November. Call office sooner with questions or concerns. Medic (more content not included)... Normal [facility] Gastroenterology Visit Repor ton 03-01-2024 Gastroenterology Visit Report [facility] [address] [place] [address] OFFICE VISIT Date of Service: 03/01/24 MR#: [id number] Acct: [id number] Name: LEOBARDO COLIN Rep #: [id number] : 2000 Provider: Tyson Sotelo DO Age/Sex: 23/F [place] [facility] [place]: Signed Intake Vital Signs 05/24/23 11:55 01/03/24 15:24 Height 5 ft 8 in 5 ft 8 in Intake Visit Reasons: 6 M FU Chief Complaint: annual Allergies adalimumab (From Humira) Allergy (Verified 01/03/24 15:24) Rash gluten Adverse Reaction (Verified 01/03/24 15:24) Other Medications ???Medication ???Instructions ???Recorded ???Confirmed ???Type norgestimate-ethinyl estradiol 1 tab PO DAILY 07/22/21 03/01/24 History 0.18 mg/0.215mg/0.25mg-35 mcg(28)tablet (Tri-Estarylla) prednisolone acetate 1 % eye 1 drp RIGHT EYE BID PRN redness 02/22/22 03/01/24 History drops,suspension topiramate 25 mg tablet (Topamax) 25 mg PO BID 08/28/23 03/01/24 History doxycycline hyclate 20 mg tablet 20 mg PO BID 09/12/23 03/01/24 History buspirone 7.5 mg tablet 7.5 mg PO BID #60 tabs 01/03/24 03/01/24 Rx risankizumab-rzaa 360 mg/2.4 mL 360 mg (2.4 mL) subcut Q8W #2.4 mL 01/03/24 03/01/24 Rx (150 mg/mL) subcut wearable injector (Lissyrizi) dicyclomine 10 mg capsule 10 mg PO BID PRN 03/01/24 History PFSH Medical History (Updated 01/31/24 @ 11:41 by Leobardo Eldridge) MRSA (methicillin resistant staph aureus) culture positive Ulcer of small intestine Abdominal pain Alternating constipation and diarrhea Wears contact lenses Wears glasses Anemia History of echocardiogram Myalgia Constipation Epigastric pain Uveitis Positive MONROE (antinuclear antibody) Exercise-induced asthma Eyelid eczema Acne Surgical History History of wisdom tooth extraction Family History Uncle Colon cancer Grandfather Bone cancer Grandmother CVA (cerebral vascular accident) Uncle Myocardial infarction Social History adopted: No current occupational status: employed sexually active: No Smoking Status: Never smoker alcohol intake: never substance use type: does not use caffeine: Yes Type: carbonated beverages and tea barry/jew: Scientology seatbelt use: always do you feel safe at home: Yes HPI HPI Chief Complaint: annual Details: LEOBARDO COLIN, is a 23 F who presents to the office today for follow up. PMH iritis (Dr. Corbett door cutter); psoriasis (Dr. 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 FH RA Prior workup: Biochemical workup ESR, CBC, Lyme (P41 and P23 present), CCP IgG ab without pertinent abnormalities. CRP H5.71, MONROE positive with Anti Cent B ab 6.0. Stool testing calprotectin, pancreatic elastase, H.Pylori and lactoferrin without abnormality. *BGI established 09.01.21 with referral from PCP for positive MONROE with workup for scleroderma; symptom onset and first noted by several episodes of iritis. Seen by rheumatology with no noted skin tightening, photosensitivity, calcinosis, telangiectasias. Noted some Raynauds phenomenon in feet. GI symptoms include epigastric LUQ cramping/discomfort that has always been present but worse since last fall with the inclusion of bloating; each typically following PO intake. No triggers noted, no alleviating factors noted. Constipation present for a while but has worsened in the last 3-4 months and includes pelvic discomfort/pain that is relieved with BM; incomplete evacuation with second movement often needed. Stools are harder and pebble like. No OTC or prescription medications attempted. ? SITZ marker . First Xray four R colon, 19 R colon, none RS colon, total 23 rings. Second Xray five rings RS colon. OV 8.16.22 with change of symptoms to include postprandial abdominal/pelvic pain preceding urgent/soft BM 2-3/day. Biochemical workup ESR, ANCA, GAME, GAVIN without pertinent abnormality. CRP H5.16, Celiac positive Stool testing H.Pylori, calprotectin WNL ? Gastric emptying study 9.8.22 times at 19.10 minutes (normal 12-56). HIDA Scan 12.16.21 EF 98% OV 01.03.22 with symptom improvement with gluten free diet. EGD/Colonoscopy/capsule endoscopy. ? EGD and colonoscopy with capsule placement 02.24.22 EGD without visual abnormality. ? Colonoscopy without pertinent abnormality. ? Capsule endoscopy noting mild celiac changes early in small bowel with mild lymphadenopathy in small bowel (more content not included)... Normal [facility] Wound Cultureon 01-31-2024 WC LEFT UPPER LIP Copy of report sent to Infection Control Printer [id number] 01/31/24 [facility] Meth. resistant Staph. aureus Amount Growth 2+ mecA Testing not performed Meth. resistant Staph. aureus: REACTION cefOXitin Susc Islt POS Doxycycline Islt RICK 8 Clindamycin Islt RICK >=4 R Clindamycin.induced Susc Islt NEG Erythromycin Islt RICK >=8 R Gentamicin Islt RICK <=0.5 S Linezolid Islt RICK 2 S Moxifloxacin Islt RICK <=0.25 S Oxacillin Susc Islt >=4 R Tetracycline Islt RICK >=16 R TMP SMX Islt RICK <=10 S Vancomycin Islt RICK 1 S Normal [facility] Comment on above: Performed By: #### M 100.3000, M100.2000 #### [facility] [address] [place], [address] Gram Stainon 01-30-2024 GS LEFT UPPER LIP Gram Stain No organisms seen Normal [facility] Comment on above: Performed By: #### M 100.3000, M100.2000 #### [facility] [address] [place], [address] Quantiferon TB-Gold+on 01-24 QFT MITOGEN PAMELA > 10.00 Normal . [facility] Comment on above: Performed By: #### L 3400.8000 #### [facility] [address] [place], [address] QFT NIL VALUE 0 IU/mL Normal . [facility] Comment on above: Performed By: #### L 3400.8000 #### [facility] [address] [place], [address] QFT TB GOLD+ Comment Normal . [facility] Comment on above: Result Comment: Maykel tiFERON-TB Gold Plus is a qualitative indirect test for M tuberculosis infection (including disease) and is intended for use in conjunction with risk assessment, radiography, and other medical and diagnostic evaluations. The QuantiFERON-TB Gold Plus result is determined by subtracting the Nil value from either TB antigen (Ag) value. The Mitogen tube serves as a control for the test. Performed By: #### L 3400.8000 #### [facility] [address] [place], [address] QFT TB POS CRIT Negative Normal Negative [facility] Comment on above: Result Comment: No r esponse to M tuberculosis antigens detected. Infection with M tuberculosis is unlikely, but high risk individuals should be considered for additional testing (ATS/IDSA/CDC Clinical Practice Guidelines, 2017). The reference range is an Antigen minus Nil result of <0.35 IU/mL. The specimen received for QuantiFERON testing was incubated by the ordering institution. Specific procedures outlined in our Directory of Services and in the package insert for the QuantiFERON Gold (In Tube) test must be followed to enable for proper stimulation of cells for the production of interferon gamma. Chemiluminescence immunoassay methodology Performed at: [facility] [employer] [id number] Centrifuge Separator Tender: Phan North PhD, Phone: [phone] Performed By: #### L 3400.8000 #### [facility] [address] [place], [place], [address] QFT TB1+ AG PAMELA 0 IU/mL Normal . [facility] Comment on above: Performed By: #### L 3400.8000 #### [facility] [address] [place], [place], [address] QFT TB2+ AG PAMELA 0 IU/mL Normal . [facility] Comment on above: Performed By: #### L 3400.8000 #### [facility] [address] [place], [place], [id number] Cvor Nurse Office Visit Reporton 01-03-2024 Cvor Nurse Office Visit Report [facility]'s [address], [address] [place] [address] OFFICE VISIT Date of Service: 01/03/24 MR#: [id number] Acct: [id number] Name: LEOBARDO COLIN Rep #: [id number] : 2000 Provider: MOSHE Conn Age/Sex: 23/F [place] [facility] [place]: Signed Intake Vital Signs 11/21/23 10:07 01/03/24 15:23 01/03/24 15:24 Height 5 ft 8 in 5 ft 9 in 5 ft 8 in Weight: 148 lb BMI 21.8 BP 123/79 H Intake Visit Reasons: 6 WK MED CK Control Equipment Electrician Required: No Is patient in pain?: No Allergies adalimumab (From Humira) Allergy (Verified 01/03/24 15:24) Rash gluten Adverse Reaction (Verified 01/03/24 15:24) Other Medications ???Medication ???Instructions ???Recorded ???Confirmed ???Type norgestimate-ethinyl estradiol 1 tab PO DAILY 07/22/21 01/03/24 History 0.18 mg/0.215mg/0.25mg-35 mcg(28)tablet (Tri-Estarylla) prednisolone acetate 1 % eye 1 drp RIGHT EYE BID PRN redness 02/22/22 01/03/24 History drops,suspension dicyclomine 10 mg capsule 10 mg PO BID #120 caps 08/20/23 01/03/24 Rx topiramate 25 mg tablet (Topamax) 25 mg PO BID 08/28/23 01/03/24 History doxycycline hyclate 20 mg tablet 20 mg PO BID 09/12/23 01/03/24 History buspirone 7.5 mg tablet 7.5 mg PO BID #60 tabs 01/03/24 01/03/24 Rx risankizumab-rzaa 360 mg/2.4 mL 360 mg (2.4 mL) subcut Q8W #2.4 mL 01/03/24 01/03/24 Rx (150 mg/mL) subcut wearable injector (Skyrizi) Post menopausal: No Patient : No : No Control Method: ocp PFSH Medical History Ulcer of small intestine Abdominal pain Alternating constipation and diarrhea Wears contact lenses Wears glasses Anemia History of echocardiogram Myalgia Constipation Epigastric pain Uveitis Positive MONROE (antinuclear antibody) Exercise-induced asthma Eyelid eczema Acne Surgical History History of wisdom tooth extraction Family History Uncle Colon cancer Grandfather Bone cancer Grandmother CVA (cerebral vascular accident) Uncle Myocardial infarction Social History adopted: No current occupational status: employed sexually active: No Smoking Status: Never smoker alcohol intake: never substance use type: does not use caffeine: Yes Type: carbonated beverages and tea barry/jew: Scientology seatbelt use: always do you feel safe at home: Yes HPI 6 WK MED CK Details: LEOBARDO COLIN is a 23 year old who presents for anxiety follow up. She reports she feels she has anxiety throughout the week with her schooling however overall feels it has been very helpful and doing well with this. She denies side effects. Right after started noticed some lightheaded/dizziness however this has subsided and she feels well on this. ROS Const Constitutional: Denies chills, fatigue, fever(s), headache(s) or weight loss Eyes Eyes: Denies change in vision ENT ENT: Denies dizziness Resp Resp: Denies cough GI GI: Denies abdominal pain, constipation or nausea Neuro Neuro: Denies dizziness Psych Psych: Reports anxiety (improved on medication); Denies depression Endo Endo: Denies cold intolerance, excessive sweating or heat intolerance Exam Const General: cooperative, healthy appearing, comfortable, no acute distress, well groomed and well hydrated Nutritional Appearance: well nourished Orientation: alert, awake and oriented x3 HENMT Head: normal to inspection and normocephalic Ears: hearing grossly normal bilaterally and external ears normal Nose: external nose normal Face and sinus: normal facial exam Eyes General: appearance normal, both eyes and all related structures Resp Effort Inspection: normal respiratory effort, able to speak in complete sentences and symmetric chest movement Neuro General: patient alert, patient awake, patient oriented x3 and moves all extremities Psych Appearance: grossly normal Mental Status: mental status grossly normal Affect: normal affect Speech and Movement: speech and movement normal Attitude: cooperative Coding Level of Care Code Established Pt Off vis,est,level 3 Patient Type Established Diagnoses Anxiety F41.9 Assessment and Plan Assessment and Plan (1) Anxiety: Status: Acute Comment: MARNI 7 completed and reviewed with patient-10; mild to moderate anxiety; today MARNI 7 a score of 2. Plan: Improved overall Increase to 7.5mg BID. She is in agreement to this plan. Call with questions or concerns otherwise follow up 3 months. If stable at that time refill okay for 6 months. Medications: Changed From buspirone 5 mg PO BID 60 tabs 1RF (more content not included)... Normal [facility] CNOVon 12-08-2023 CNOV Office Visit (RHEUMN ) LEOBARDO COLIN ([id number]) 4 F Date Time Provider Department 12/08/23 9:00 AM FAIZA THOMAS During your visit today, we recorded the following information about you: Temperature Pulse Blood pressure Weight 98.7 degrees 90/minute 122/83 68.9 kg Height 1.715 m Faiza Thomas MD 12/09/2023 10:37 AM Signed Referred by: Doris Walden MD [address] [facility] [id number] PCP: Mitali Alonzo MD [id number] [facility] [id number] My final recommendations will be communicated back to the requesting physician by way of shared medical record or letter to the requesting physician by [place] mail. ACTIVE PROBLEM LIST Scleral Disorder Sever's Apophysitis, Bilateral Ms. Leobardo Colin is a 23-year-old female Chief Complaint: Ms. Leobardo Colin presents today for evaluation of possible scleroderma. History of Present Illness: 12/07/2023 Patient presents to clinic with her father. She was referred by Dr. Doris Walden MD, director social at [facility] in [facility]. She has been following with Dr. Walden for about 2 years. The reason for referral is the detection of anticentromere antibody (?). In 2018, she received the COVID-19 vaccine. 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 A few years later, she had an influenza vaccine and the uveitis flared up again in her right eye. Her primary care provider thought there might be an underlying rheumatological cause to these flare ups. She has had three episodes of uveitis so far, which have been correlated with receiving a vaccine. History of Present Illness: 12/07/2023 The patient presents to the clinic with her father. She was referred by Dr. Doris Walden MD, a director social at [facility] in [place], [place]. She has been following Dr. Walden for about two years. Today's referral is due to the detection of an anticentromere antibody (?). In 2019, she received the COVID-19 vaccine. 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 A few years later, she had an influenza vaccine, and the uveitis flared up again in her right eye. Her primary care provider thought there might be an underlying rheumatological cause to these flare ups. She has had three episodes of uveitis so far, which have been correlated with receiving a vaccine. She also has a history of Crohn's and Celiac disease. Both are currently under control. They were diagnosed via a colonoscopy (Crohn's disease) and EGD (celiac disease). She has been on a gluten free diet for two years now. She experienced some weight loss when she started the gluten-free diet, but she reports no weight loss prior to that. Today, her BMI is 23.44 kg/m? She reports intermittent nodules on the tips of her toes and the balls of her feet that are very painful. She has not seen a twist packer so far. The pain is worse in the morning but gets better during the day. She does not take [id number] NSAIDs for pain control. She was prescribed Topiramate to manage her migraines, which are under control. She reports her toes turn blue in the cold, not her fingers. She notes bilateral MTP and PIP joint pain in her toes. She notes some intermittent morning stiffness that lasts less than 30 minutes. It improves with activity. 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 She denies Raynaud's phenomenon (the first symptom of systemic sclerosis). Also, she denies any history of ischemic digital ulcers, dry eyes and mouth, acid reflux symptoms, dysphagia, early satiety, constipation, diarrhea, or fecal incontinence. She also denies exertional shortness of breath or a dry cough. Her school requires her to receive the influenza vaccine despite her history of uveitis flare-ups with prior vaccines. She also has a history of Crohn's and Celiac disease. Both are currently under control. They were diagnosed via a colonoscopy (Crohn's disease) and EGD (celiac disease). She has been on a gluten free diet for two years now. She experienced some weight loss when she started the gluten-free diet but she reports no weight loss prior to that. Today, her BMI is 23.44 kg/m? She reports intermittent nodules on the tips on her toes and balls of her feet that are very painful. She has not seen a twist packer so far. It is worse in the morning but get better during the day. She does not take [id number] NSAIDs for pain control. She was prescribed Topiramate to manage her migraines, which are under control. She reports her toes turn blue in the cold, not her fingers. She notes bilateral MTP and PIP joint pain in her toes. She notes some intermittent morning stiffness that lasts less than 30 minutes. It improves with activity. 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 She denies (more content not included)... Normal [facility] CNPNon 08-28-2023 CNPN Telephone (RHEUMN) LEOBARDO COLIN ([id number]) 4 F Date Time Provider Department 08/28/23 FAIZA THOMAS RHEUMN During your visit today, we recorded the following information about you: Rosita Lemus Ma 08/28/2023 2:00 PM Signed Received medical records from Dr Newton Simon scanned docs Allergies As of Date: 08/28/2023 (No Known Allergies) Date Reviewed: 03/27/2017 Reviewed by: Nadia Garner) - Fully Assessed Reason for Visit: Received Outside Medical Records [[id number]] Prescriptions as of 08/28/2023 - VITAMIN A ORAL Take by mouth one time only. - permethrin (ELIMITE) 5 % cream Apply from neck down and leave on for 8 hours (avoid genital area), then shower off. 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 Chloride [Moles/Vol] 107 mmol/L 98-107 [facility] Eosinophils/100 WBC (Bld) 1.6 % 0-5 [facility] Glucose [Mass/Vol] 88 mg/dL 74-106 [facility] LDH [Catalytic activity/Vol] 143 U/L 84-246 [facility] Neutrophils (Bld) [#/Vol] 3.8 10*3/uL 2.0-7.7 [facility] Neutrophils/100 WBC (Bld) 59.6 % 47-70 [facility] Potassium [Moles/Vol] 3.8 mmol/L 3.5-5.1 [facility] Protein [Mass/Vol] 7.0 g/dL 6.4-8.2 [facility] Sodium [Moles/Vol] 139 mmol/L 136-145 [facility] WBC (Bld) [#/Vol] 6.4 10*3/uL 4.4-11.0 [facility] Blood erythrocytes count (nu mber/volume)Ordered By: Tyson Sotelo on 03-27-2023 RBC (Bld) [#/Vol] 4.64 10*6/uL 4.2-5.4 [facility] Blood hemoglobin measurement (mass/volume)Ordered By: Tyson Sotelo on 03-27-2023 Hemoglobin (Bld) [Mass/Vol] 13.4 g/dL 12.0-15.0 [facility] Blood lymphocytes/100 leukoc ytesOrdered By: Tyson Sotelo on 03-27-2023 Lymphocytes/100 WBC (Bld) 31.5 % 19-41 [facility] Blood monocytes/100 leukocyt esOrdered By: Tyson Sotelo on 03-27-2023 Monocytes/100 WBC (Bld) 6.5 % 0-10 [facility] Blood platelet mean volumeOr dered By: Tyson Sotelo on 03-27-2023 Platelet mean volume (Bld) [Entitic vol] 11.1 fL 6.2-12.0 [facility] Determination of erythrocyte mean corpuscular volume (MCV)Ordered By: Tyson Sotelo on 03-27-2023 MCV (RBC) [Entitic vol] 90.1 fL 81-99 [facility] Erythrocyte sedimentation ra teOrdered By: Tyson Sotelo on 03-27-2023 ESR (Bld) [Velocity] mm/h 0-30 [facility] Hematocrit Auto (Bld) [Volum e fraction]Ordered By: Tysonpatricia Sotelo on 03-27-2023 Hematocrit (Bld) [Volume fraction] 41.8 % 37-47 [facility] Laboratory - Chemistry and C hemistry - challengeOrdered By: Tyson Sotelo on 03-27-2023 ALP [Catalytic activity/Vol] 53 U/L 45-117 [facility] ALT [Catalytic activity/Vol] 19 U/L 13-56 [facility] CO2 [Moles/Vol] 24.0 mmol/L 21.0-32.0 [facility] Globulin (S) [Mass/Vol] 3.5 g/dL 2.2-4.2 [facility] Urea nitrogen/Creatinine [Mass ratio] 10.9 mg/mg 10-20 [facility] Laboratory - Hematology and Cell countsOrdered By: Tyson Sotelo on 03-27-2023 Erythrocyte distribution width (RBC) [Entitic vol] 42.3 fL 35.1-43.9 [facility] Erythrocyte distribution width (RBC) [Ratio] 12.8 % 11.6-14.6 [facility] Immature granulocytes/100 WBC (Bld) 0.300 % 0.0-0.9 [facility] Comment on above: IG% - Immature Granu locytes (promyelocytes, myelocytes and metamyelocytes) > 1% indicates that a LEFT SHIFT is Present. MCH (RBC) [Entitic mass] 28.9 pg 27.0-32.0 [facility] Nucleated RBC/100 WBC (Bld) [Ratio] 0 % 0-5 [facility] MCHC Auto (RBC) [Mass/Vol]Or dered By: Tyson Sotelo on 03-27-2023 MCHC (RBC) [Mass/Vol] 32.1 g/dL 32-36 [facility] No Panel InformationOrdered By: Tyson Sotelo on 03-27-2023 Endomysial IgA Antibody Negative Negative [facility] Estimated GFR (MDRD) Amer 113 mL/min >60 [facility] Comment on above: GFR Calc Estimated GFR (MDRD) Non-Af Amer 93 mL/min >60 [facility] Comment on above: Non- GFR Calc Platelets bldOrdered By: Sammy Sotelo on 03-27-2023 Platelets (Bld) [#/Vol] 229 10*3/uL 150-450 [facility] Qualitative QuantiFERON-TB g old in tube testOrdered By: Tyson Sotelo on 03-27-2023 M. tuberculosis tuberculin stim IFN-g Ql (Bld) 0 IU/mL . [facility] Serum IgA measurement (units /volume)Ordered By: Tyson Sotelo on 03-27-2023 IgA Qn (S) 135 mg/dL 87-352 [facility] Serum or plasma C reactive p rotein measurement (mass/volume)Ordered By: Tyson Sotelo on 03-27-2023 CRP [Mass/Vol] 5.30 mg/L 0.0-3.0 [facility] Comment on above: C-Reactive Protein ( CRP) provides useful information for thediagnosis, therapy and monitoring of inflammatory processesand associated diseases. For the evaluation of Relative Riskfor Cardiovascular Disease, a High Sensitivity CRP (HSCRP)should be ordered. Serum or plasma albumin bjorn urement (mass/volume)Ordered By: Tyson Sotelo on 03-27-2023 Albumin [Mass/Vol] 3.5 g/dL 3.2-5.0 [facility] Serum or plasma albumin/glob ulin mass ratioOrdered By: Tyson Sotelo on 03-27-2023 Albumin/Globulin [Mass ratio] 1.0 {ratio} 0.9-2.4 [facility] Serum or plasma calcium bjorn urement (mass/volume)Ordered By: Tyson Sotelo on 03-27-2023 Calcium [Mass/Vol] 9.1 mg/dL 8.5-10.1 [facility] Serum or plasma creatinine m easurement (mass/volume)Ordered By: Tyson Sotelo on 03-27-2023 Creatinine [Mass/Vol] 0.82 mg/dL 0.55-1.02 [facility] Comment on above: The validity of the calculated GFR & GFRAA in patients over 70 years has not been determined. Clinical correlation is essential. Serum or plasma urea nitroge n measurement (mass/volume)Ordered By: Tyson Sotelo on 03-27-2023 Urea nitrogen [Mass/Vol] 9 mg/dL 7-18 [facility] Serum tissue transglutaminas e IgA antibody assay (units/volume)Ordered By: Tyson Sotelo on 03-27-2023 tTG IgA Qn (S) <2 U/mL 0-3 [facility] Comment on above: Negative 0 - 3 Weak Positive 4 - 10 Positive >10 Tissue Transglutaminase (tTG) has been identified as the endomysial antigen. Studies have demonstr- ated that endomysial IgA antibodies have over 99% specificity for gluten sensitive enteropathy. Stool lactoferrin detection by immunoassayOrdered By: Tyson Sotelo on 03-27-2023 Lactoferrin IA Ql (Stl) [facility] Thin prep Papanicolaou smear with manual screeningOrdered By: Tyson Sotelo on 03-27-2023 Thin prep Papanicolaou smear with manual screening 11 U/L 15-37 [facility] Thin prep Papanicolaou smear with manual screening 8 5-15 [facility] Thin prep Papanicolaou smear with manual screening Comment . [facility] Comment on above: QuantiFERON-TB Gold Plus is a qualitative indirect test forM tuberculosis infection (including disease) and isintended for use in conjunction with risk assessment,radiography, and other medical and diagnostic evaluations.The QuantiFERON-TB Gold Plus result is determined bysubtracting the Nil value from either TB antigen (Ag)value. The Mitogen tube serves as a control for the test. Thin prep Papanicolaou smear with manual screening 0 IU/mL . [facility] Thin prep Papanicolaou smear with manual screening > 10.00 IU/mL . [facility] Thin prep Papanicolaou smear with manual screening Negative Negative [facility] Comment on above: No response to M tub erculosis antigens detected.Infection with M tuberculosis is unlikely, but high riskindividuals should be considered for additional testing(ATS/IDSA/CDC Clinical Practice Guidelines, 2017). Thereference range is an Antigen minus Nil result of <0.35IU/mL.The specimen received for QuantiFERON testing was incubatedby the ordering institution. Specific procedures outlinedin our Directory of Services and in the package insert forthe QuantiFERON Gold (In Tube) test must be followed toenable for proper stimulation of cells for the productionof interferon gamma. Chemiluminescence immunoassaymethodologyPerformed at: [address] [id number] Director: Phan North PhD, Phone: [phone] Absolute lymphocyte countOrd ered By: Tyrell Sykes on 01-01-2023 Lymphocytes Auto (Unsp spec) [#/Vol] 3.18 10*3/uL 0.83-4.51 [facility] Basophil percentageOrdered B y: Tyrell Sykes on 01-01-2023 Basophils/100 WBC (Bld) 0.4 % 0-1 [facility] Bilirubin [Mass/Vol] 0.40 mg/dL 0.20-1.00 [facility] Comment on above: For patients on eltr ombopag therapy, use of Dimension [place] TBIL is not recommended. Chloride [Moles/Vol] 104 mmol/L 98-107 [facility] Eosinophils/100 WBC (Bld) 0.8 % 0-5 [facility] Glucose [Mass/Vol] 93 mg/dL 74-106 [facility] Neutrophils (Bld) [#/Vol] 3.7 10*3/uL 2.0-7.7 [facility] Neutrophils/100 WBC (Bld) 49.3 % 47-70 [facility] Potassium [Moles/Vol] 3.2 mmol/L 3.5-5.1 [facility] Comment on above: Slight Hemolysis, Re sult may be falsely increased. Protein [Mass/Vol] 7.3 g/dL 6.4-8.2 [facility] Sodium [Moles/Vol] 139 mmol/L 136-145 [facility] WBC (Bld) [#/Vol] 7.4 10*3/uL 4.4-11.0 [facility] Blood erythrocytes count (nu mber/volume)Ordered By: Tyrell Sykes on 01-01-2023 RBC (Bld) [#/Vol] 4.41 10*6/uL 4.2-5.4 [facility] Blood hemoglobin measurement (mass/volume)Ordered By: Tyrell Sykes on 01-01-2023 Hemoglobin (Bld) [Mass/Vol] 12.9 g/dL 12.0-15.0 [facility] Blood lymphocytes/100 leukoc ytesOrdered By: Tyrell Sykes on 01-01-2023 Lymphocytes/100 WBC (Bld) 42.8 % 19-41 [facility] Blood monocytes/100 leukocyt esOrdered By: Tyrell Sykes on 01-01-2023 Monocytes/100 WBC (Bld) 6.6 % 0-10 [facility] Blood platelet mean volumeOr dered By: Tyrell Sykes on 01-01-2023 Platelet mean volume (Bld) [Entitic vol] 11.0 fL 6.2-12.0 [facility] Determination of erythrocyte mean corpuscular volume (MCV)Ordered By: Tyrell Sykes on 01-01-2023 MCV (RBC) [Entitic vol] 89.8 fL 81-99 [facility] Direct bilirubinOrdered By: Tyrell Sykes on 01-01-2023 Bilirubin.direct [Mass/Vol] 0.08 mg/dL 0.00-0.30 [facility] Hematocrit Auto (Bld) [Volum e fraction]Ordered By: Tyrell Sykes on 01-01-2023 Hematocrit (Bld) [Volume fraction] 39.6 % 37-47 [facility] Laboratory - Chemistry and C hemistry - challengeOrdered By: Tyrell Sykes on 01-01-2023 ALP [Catalytic activity/Vol] 52 U/L 45-117 [facility] ALT [Catalytic activity/Vol] 22 U/L 13-56 [facility] CO2 [Moles/Vol] 26.0 mmol/L 21.0-32.0 [facility] Globulin (S) [Mass/Vol] 3.6 g/dL 2.2-4.2 [facility] Magnesium [Mass/Vol] 2.1 mg/dL 1.6-2.6 [facility] Comment on above: Slight Hemolysis, Re sult may be falsely increased. Urea nitrogen/Creatinine [Mass ratio] 11.9 mg/mg 10-20 [facility] Laboratory - Hematology and Cell countsOrdered By: Tyrell Sykes on 01-01-2023 Erythrocyte distribution width (RBC) [Entitic vol] 41.9 fL 35.1-43.9 [facility] Erythrocyte distribution width (RBC) [Ratio] 12.6 % 11.6-14.6 [facility] Immature granulocytes/100 WBC (Bld) 0.100 % 0.0-0.9 [facility] Comment on above: IG% - Immature Granu locytes (promyelocytes, myelocytes and metamyelocytes) > 1% indicates that a LEFT SHIFT is Present. MCH (RBC) [Entitic mass] 29.3 pg 27.0-32.0 [facility] Nucleated RBC/100 WBC (Bld) [Ratio] 0 % 0-5 [facility] MCHC Auto (RBC) [Mass/Vol]Or dered By: Tyrell Sykes on 01-01-2023 MCHC (RBC) [Mass/Vol] 32.6 g/dL 32-36 [facility] No Panel InformationOrdered By: Tyrell Sykes on 01-01-2023 D-Dimer Quantitative (PE/DVT) < 0.27 FEU/ug/m 0.27-0.49 [facility] Comment on above: NORMAL D-Dimer level (<0.50) indicates no DVT or PE. Estimated Creatinine Clearance Calc 93.84 ml/min [facility] Estimated GFR (MDRD) Amer 99 mL/min >60 [facility] Comment on above: GFR Calc Estimated GFR (MDRD) Non-Af Amer 82 mL/min >60 [facility] Comment on above: Non- GFR Calc Troponin I High Sensitivity < 3 pg/mL 3.0-54.0 [facility] Comment on above: Please Note: New Shellie t Units and Gender Specific Reference Ranges. For more information see Policy Stat Procedure [place] High Sensitivity Troponin (TNIH) and attachments. Platelets bldOrdered By: Beau Sykes on 01-01-2023 Platelets (Bld) [#/Vol] 237 10*3/uL 150-450 [facility] Serum or plasma albumin bjorn urement (mass/volume)Ordered By: Tyrell Sykes on 01-01-2023 Albumin [Mass/Vol] 3.7 g/dL 3.2-5.0 [facility] Serum or plasma calcium bjorn urement (mass/volume)Ordered By: Tyrell Sykes on 01-01-2023 Calcium [Mass/Vol] 9.1 mg/dL 8.5-10.1 [facility] Serum or plasma creatinine m easurement (mass/volume)Ordered By: Tyrell Sykes on 01-01-2023 Creatinine [Mass/Vol] 0.93 mg/dL 0.55-1.02 [facility] Comment on above: The validity of the calculated GFR & GFRAA in patients over 70 years has not been determined. Clinical correlation is essential. Serum or plasma urea nitroge n measurement (mass/volume)Ordered By: Tyrell Sykes on 01-01-2023 Urea nitrogen [Mass/Vol] 11 mg/dL 7-18 [facility] Thin prep Papanicolaou smear with manual screeningOrdered By: Tyrell Sykes on 01-01-2023 Thin prep Papanicolaou smear with manual screening 16 U/L 15-37 [facility] Comment on above: Slight Hemolysis, Re sult may be falsely increased. Thin prep Papanicolaou smear with manual screening 9 5-15 [facility] Absolute lymphocyte countOrd ered By: Mitali Alonzo on 12-13-2022 Lymphocytes Auto (Unsp spec) [#/Vol] 1.58 10*3/uL 0.83-4.51 [facility] Basophil percentageOrdered B y: Mitali Alonzo on 12-13-2022 Basophils/100 WBC (Bld) 0.3 % 0-1 [facility] Eosinophils/100 WBC (Bld) 1.5 % 0-5 [facility] Neutrophils (Bld) [#/Vol] 4.1 10*3/uL 2.0-7.7 [facility] Neutrophils/100 WBC (Bld) 66.5 % 47-70 [facility] WBC (Bld) [#/Vol] 6.1 10*3/uL 4.4-11.0 [facility] Blood erythrocytes count (nu mber/volume)Ordered By: Mitali Alonzo on 12-13-2022 RBC (Bld) [#/Vol] 4.41 10*6/uL 4.2-5.4 [facility] Blood hemoglobin measurement (mass/volume)Ordered By: Mitali Alonzo on 12-13-2022 Hemoglobin (Bld) [Mass/Vol] 12.8 g/dL 12.0-15.0 [facility] Blood lymphocytes/100 leukoc ytesOrdered By: Mitali Alonzo on 12-13-2022 Lymphocytes/100 WBC (Bld) 25.7 % 19-41 [facility] Blood monocytes/100 leukocyt esOrdered By: Mitali Alonzo on 12-13-2022 Monocytes/100 WBC (Bld) 5.5 % 0-10 [facility] Blood platelet mean volumeOr dered By: Mitali Alonzo on 12-13-2022 Platelet mean volume (Bld) [Entitic vol] 12.0 fL 6.2-12.0 [facility] Determination of erythrocyte mean corpuscular volume (MCV)Ordered By: Mitlai Alonzo on 12-13-2022 MCV (RBC) [Entitic vol] 90.5 fL 81-99 [facility] Hematocrit Auto (Bld) [Volum e fraction]Ordered By: Mitali Alonzo on 12-13-2022 Hematocrit (Bld) [Volume fraction] 39.9 % 37-47 [facility] Iron measurement (mass/mass) Ordered By: Mitali Alonzo on 12-13-2022 Iron (Unsp spec) [Mass/Mass] 160 ug/dL 50-170 [facility] Laboratory - Hematology and Cell countsOrdered By: Mitali Alonzo on 12-13-2022 Erythrocyte distribution width (RBC) [Entitic vol] 43.2 fL 35.1-43.9 [facility] Erythrocyte distribution width (RBC) [Ratio] 13.0 % 11.6-14.6 [facility] Immature granulocytes/100 WBC (Bld) 0.500 % 0.0-0.9 [facility] Comment on above: IG% - Immature Granu locytes (promyelocytes, myelocytes and metamyelocytes) > 1% indicates that a LEFT SHIFT is Present. MCH (RBC) [Entitic mass] 29.0 pg 27.0-32.0 [facility] Nucleated RBC/100 WBC (Bld) [Ratio] 0 % 0-5 [facility] MCHC Auto (RBC) [Mass/Vol]Or dered By: Mitali Alonzo on 12-13-2022 MCHC (RBC) [Mass/Vol] 32.1 g/dL 32-36 [facility] No Panel InformationOrdered By: Mitali Alonzo on 12-13-2022 Total Iron Binding Capacity 368 ug/dL 250-450 [facility] Platelets bldOrdered By: Gary Alonzo on 12-13-2022 Platelets (Bld) [#/Vol] 236 10*3/uL 150-450 [facility] Serum or plasma ferritin marilee surement (mass/volume)Ordered By: Mitali Alonzo on 12-13-2022 Ferritin [Mass/Vol] 15 ng/mL 8-252 [facility] Serum or plasma iron saturat ion measurement (mass fraction)Ordered By: Mitali Alonzo on 12-13-2022 Iron saturation [Mass fraction] 43.5 % 15.0-55.0 [facility] No Panel InformationOrdered By: [facility] on 05-17-2022 Hepatitis B Surface Antibody Non-Reactive [facility] Comment on above: Non Reactive: Incons istent with immunity less than <10 mIU/mL Reactive: Consistent with immunity greater than or equal to 10 mIU/mL Erythrocyte sedimentation ra teOrdered By: Liliana Goldberg on 03-10-2022 ESR (Bld) [Velocity] 2 mm/h 0-30 [facility] No Panel InformationOrdered By: Liliana Goldberg on 03-10-2022 Endomysial IgA Antibody Negative Negative [facility] Miscellaneous Test See comment [facility] Comment on above: TEST RESULT LIMITSIB D Expanded Panel Jacob 23 units 0-50 Negative <45 Equivocal 45 - 50 Positive >50 ACCA 17 units 0-90 Negative <80 Equivocal 80 - 90 Positive >90 ALCA 45 units 0-60 Negative <55 Equivocal 55 - 60 Positive >60 AMCA 152 High units 0-100 Negative < 90 Equivocal 90 - 100 Positive >100 This test was developed and its performance characteristics determined by [facility]. It has not been cleared or approved by the Food and Drug Administration. The FDA has determined that such clearance or approval is not necessary.Atypical pANCA Negative Negative Comments Abnormal Suggestive of Crohn's Disease. Pattern is not conclusive for disease behavior risk stratification. TESTING PERFORMED AT [facility]. ORIGINAL REPORT ON FILE IN LAB CONTAINS ADDITIONAL TEST SITE INFORMATION. Serum IgA measurement (units /volume)Ordered By: Liliana Goldberg on 03-10-2022 IgA Qn (S) 130 mg/dL 87-352 [facility] Comment on above: Performed at: [place] [id number] Director: Phan North PhD, Phone: [phone] Serum or plasma C reactive p rotein measurement (mass/volume)Ordered By: Liliana Goldberg on 03-10-2022 CRP [Mass/Vol] 2.97 mg/L 0.0-3.0 [facility] Comment on above: C-Reactive Protein ( CRP) provides useful information for thediagnosis, therapy and monitoring of inflammatory processesand associated diseases. For the evaluation of Relative Riskfor Cardiovascular Disease, a High Sensitivity CRP (HSCRP)should be ordered. Serum tissue transglutaminas e IgA antibody assay (units/volume)Ordered By: Liliana Goldberg on 03-10-2022 tTG IgA Qn (S) 3 U/mL 0-3 [facility] Comment on above: Negative 0 - 3 Weak Positive 4 - 10 Positive >10 Tissue Transglutaminase (tTG) has been identified as the endomysial antigen. Studies have demonstr- ated that endomysial IgA antibodies have over 99% specificity for gluten sensitive enteropathy. Thin prep Papanicolaou smear with manual screeningOrdered By: Liliana Goldberg on 03-10-2022 Thin prep Papanicolaou smear with manual screening 107 U/L 84-246 [facility] Laboratory - Chemistry and C hemistry - challengeOrdered By: Dr. Crook on 02-24-2022 HCG ( test) Ql (U) Negative [facility] Comment on above: Very dilute urine sp ecimens, as indicated by a low specificgravity, may not contain business representative levels of hCG. If is still suspected, a first morning urinespecimen should be collected 48 hours later and tested. Albumin Elph [Mass/Vol]on Albumin [Mass/Vol] 3.9 g/dL 2.9-4.4 [facility] Work Phone: Atypical perinuclear antineu trophil cytoplasmic antibodies measurementon 11-09-2021 Neutrophil cytoplasmic Ab.perinuclear.atypica l IF (S) [Titer] <1:20 titer Neg:<1:20 [facility] Work Phone: Comment on above: The atypical pANCA p attern has been observed in asignificant percentage of patients with ulcerative colitis,primary sclerosing cholangitis and autoimmune hepatitis.Performed at: - [facility] [id number] Director: Phan North PhD, Phone: [phone] at: [facility] [id number] Director: Horacio Swan MD, Phone: [phone] Erythrocyte sedimentation ra santiago 11-09-2021 ESR (Bld) [Velocity] 5 mm/h 0-30 [facility] Work Phone: Interpretation of serum or p lasma protein pattern by immunofixation (narrative resulton 11-09-2021 Protein Fractions Immunofixation Jose [Interp] See comment [facility] Work Phone: Comment on above: Result: Not Observed No Panel Informationon 11-09 Stool Calprotectin <16 ug/g 0-120 [facility] Work Phone: Comment on above: Concentration Interp retation Follow-Up<16 - 50 ug/g Normal None>50 -120 ug/g Borderline Re-evaluate in 4-6 weeks >120 ug/g Abnormal Repeat as clinically indicatedPerformed at: - [facility] [id number] Director: Horacio Swan MD, Phone: [phone] Addendum Document Comment . [facility] Work Phone: Comment on above: Protein electrophore sis scan will follow via computer,mail, or appointment manager delivery. Endomysial IgA Antibody Negative Negative [facility] Work Phone: Immunoglobulin E 25 IU/mL 6-495 [facility] Work Phone: Serum IgA measurement (units /volume)on 11-09-2021 IgA Qn (S) 146 mg/dL 87-352 [facility] Work Phone: Comment on above: Performed at: [place] - [facility] [address] [id number] Director: Phan North PhD, Phone: [phone] Serum [id number] measu rement by electrophoresison 11-09-2021 Alpha 1 globulin Elph [Mass/Vol] 0.3 g/dL 0.0-0.4 [facility] Work Phone: Alpha 1 globulin Elph [Mass/Vol] 0.9 g/dL 0.4-1.0 [facility] Work Phone: Serum classic neutrophil cyt oplasmic antibody assay (units/volume)on 11-09-2021 Neutrophil cytoplasmic Ab.classic Qn (S) <1:20 titer Neg:<1:20 [facility] Work Phone: Serum globulin measurement ( mass/volume)on 11-09-2021 Globulin (S) [Mass/Vol] 3.3 g/dL 2.2-3.9 [facility] Work Phone: Serum or plasma C reactive p rotein measurement (mass/volume)on 11-09-2021 CRP [Mass/Vol] 5.16 mg/L 0.0-3.0 [facility] Work Phone: Comment on above: C-Reactive Protein ( CRP) provides useful information for thediagnosis, therapy and monitoring of inflammatory processesand associated diseases. For the evaluation of Relative Riskfor Cardiovascular Disease, a High Sensitivity CRP (HSCRP)should be ordered. Serum or plasma IgA measurem ent (mass/volume)on 11-09-2021 IgA [Mass/Vol] 148 mg/dL 87-352 [facility] Work Phone: Serum or plasma IgG measurem ent (mass/volume)on 11-09-2021 IgG [Mass/Vol] 926 mg/dL 719-1475 [facility] Work Phone: Serum or plasma IgM measurem ent (mass/volume)on 11-09-2021 IgM [Mass/Vol] 121 mg/dL 58-230 [facility] Work Phone: Serum or plasma beta globuli n measurement by electrophoresis (mass/volume)on 11-09-2021 Beta globulin Elph [Mass/Vol] 1.1 g/dL 0.7-1.3 [facility] Work Phone: Serum or plasma gamma globul in measurement by electrophoresis (mass/volume)on 11-09-2021 Gamma globulin Elph [Mass/Vol] 1.0 g/dL 0.4-1.8 [facility] Work Phone: Serum or plasma immunoelectr ophoresis interpretation (nominal result)on 11-09-2021 Interpretation IEP [Interp] Comment . [facility] Work Phone: Comment on above: No monoclonality det ected. Serum perinuclear neutrophil cytoplasmic antibody titer by immunofluorescenceon 11-09-2021 Neutrophil cytoplasmic Ab.perinuclear IF (S) [Titer] <1:20 titer Neg:<1:20 [facility] Work Phone: Comment on above: The presence of posi tive fluorescence exhibiting P-ANCA orC-ANCA patterns alone is not specific for the diagnosis ofWegener's Granulomatosis (WG) or microscopic polyangiitis.Decisions about treatment should not be based solely onANCA IFA results. The [employer] ANCA Group Consensusrecommends follow up testing of positive sera with both VA-3 and MPO-ANCA enzyme immunoassays. As many as 5% serumsamples are positive only by EIA.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 projecting over the medial knee compartment are felt to be artifactual. No joint effusion is demonstrated. A mild amount of edema is noted in Hoffa's fat pad. IMPRESSION: No acute osseous abnormality is identified. I have personally reviewed the images of this examination and agree with the resident's findings and interpretation. Interpreted By: Shiva Pacheco MD Preliminary Report By: Shiva Pacheco MD Electronically Signed By: Shiva Pacheco MD Dictated Date: 03/06/2019 2:32:03 PM Prelim Date: 03/06/2019 2:32:03 PM Sign Date: 03/06/2019 2:32:46 PM Ordering Provider:Kajal Pino [facility] ([place]) Progress Noteon 08-28-2018 [employer] Authentication Interface Message Text TECHNICAL: Technically difficult due to poor windows SEGMENTAL ANATOMY: Levocardia (S,D,S). SYSTEMIC VEINS: Hepatic veins, and superior and inferior caval veins return to the right atrium; PULMONARY VEINS: Normal pulmonary venous return. ATRIA: Intact atrial septum; no atrial dilation. ATRIOVENTRICULAR VALVES: Mitral valve: No stenosis or regurgitation; no mitral valve prolapse. Tricuspid valve: No stenosis; physiologic low-velocity tricuspid regurgitation. VENTRICLES: Left ventricle: Normal size, wall thickness, and normal systolic function. Right ventricle: Qualitatively normal size, wall thickness, and systolic function. Intact ventricular septum; no septal flattening SEMILUNAR VALVES: Aortic valve: Tricommissural without stenosis or regurgitation; no subaortic stenosis; Pulmonary valve: No stenosis; physiologic low-velocity pulmonic regurgitation. GREAT ARTERIES: Pulmonary artery: Normal main and branch pulmonary arteries Aorta: Aortic branching not well demonstrated in this study; possible left aortic arch with an aberrant right subclavian artery. No patent ductus arteriosus. No obvious coarctation of the aorta. CORONARY ARTERIES: Normal origins, no aneurysms branching not well seen PERICARDIUM: No pericardial effusion. FINAL IMPRESSION: 1. Grossly normal echocardiogram Normal [facility] Vital Signs Date Time Vital Sign Value Performing Clinician Facility 11-21-2024 10:41-0400 Body height 172.[address] Mitali Alonzo MD Work Phone: [facility] 11-21-2024 10:41-0400 Body mass index (BMI) [Ratio] 22.4 kg/m2 Dr. Mitali Alonzo MD Work Phone: [facility] 11-21-2024 10:41-0400 Body weight 66.[address] Mitali Alonzo MD Work Phone: [facility] 11-21-2024 10:41-0400 Diastolic blood pressure 77 mm[Hg] Dr. Mitali Alonzo MD Work Phone: [facility] 11-21-2024 10:41-0400 Systolic blood pressure 110 mm[Hg] Dr. Mitali Alonzo MD Work Phone: [facility] 12-08-2023 08:45-0400 Body height 171.5 cm Faiza Thomas MD Work Phone: [facility] 12-08-2023 08:45-0400 Body mass index (BMI) [Ratio] 23.44 kg/m2 Faiza Thomas MD Work Phone: [facility] 12-08-2023 08:45-0400 Body temperature 98.71 [degF] Faiza Thomas MD Work Phone: [facility] 12-08-2023 08:45-0400 Body weight 68.9 kg Faiza Thomas MD Work Phone: [facility] 12-08-2023 08:45-0400 Diastolic blood pressure 83 mm[Hg] Faiza Thomas MD Work Phone: [facility] 12-08-2023 08:45-0400 Heart rate 90 /min Faiza Thomas MD Work Phone: [facility] 12-08-2023 08:45-0400 Systolic blood pressure 122 mm[Hg] Faiza Thomas MD Work Phone: [facility] 01-01-2023 04:55-0400 Diastolic blood pressure 73 mm[Hg] Dr. Mitali Alonzo Work Phone: [facility] 01-01-2023 04:55-0400 Heart rate 69 /min Dr. Mitali Alonzo Work Phone: [facility] 01-01-2023 04:55-0400 Respiratory rate 18 /min Dr. Mitali Alonzo Work Phone: [facility] 01-01-2023 04:55-0400 SaO2% (BldA) [Mass fraction] 99 % Dr. Mitali Alonzo Work Phone: [facility] 01-01-2023 04:55-0400 Systolic blood pressure 128 mm[Hg] Dr. Mitali Alonzo Work Phone: [facility] 01-01-2023 03:12-0400 Body height 170.[address] Mitali Alonzo Work Phone: [facility] 01-01-2023 03:12-0400 Body mass index (BMI) [Ratio] 24.3 kg/m2 Dr. Mitlai Alonzo Work Phone: [facility] 01-01-2023 03:12-0400 Body temperature 97.9 [degF] Dr. Mitali Alonzo Work Phone: [facility] 01-01-2023 03:12-0400 Body weight 70.[address] Mitali Alonzo Work Phone: [facility] 07-19-2022 15:26-0400 Diastolic blood pressure 55 mm[Hg] Dr. Mitali Alonzo Work Phone: [facility] 07-19-2022 15:26-0400 Heart rate 78 /min Dr. Mitali Alonzo Work Phone: [facility] 07-19-2022 15:26-0400 Systolic blood pressure 93 mm[Hg] Dr. Mitali Alonzo Work Phone: [facility] 07-19-2022 13:39-0400 Body height 170.[address] Mitali Alonzo Work Phone: [facility] 07-19-2022 13:39-0400 Body mass index (BMI) [Ratio] 22.7 kg/m2 Dr. Mitali Alonzo Work Phone: [facility] 07-19-2022 13:39-0400 Body temperature 97.7 [degF] Dr. Mitali Alonzo Work Phone: [facility] 07-19-2022 13:39-0400 Body weight 65.[address] Mitali Alonzo Work Phone: [facility] 07-19-2022 13:39-0400 Respiratory rate 16 /min Dr. Mitali Alonzo Work Phone: [facility] 07-19-2022 13:39-0400 SaO2% (BldA) [Mass fraction] 100 % Dr. Mitali Alonzo Work Phone: [facility] 06-21-2022 15:29-0400 Diastolic blood pressure 67 mm[Hg] Dr. Mitali Alonzo Work Phone: [facility] 06-21-2022 15:29-0400 Heart rate 87 /min Dr. Mitali Alonzo Work Phone: [facility] 06-21-2022 15:29-0400 Respiratory rate 16 /min Dr. Mitali Alonzo Work Phone: [facility] 06-21-2022 15:29-0400 Systolic blood pressure 115 mm[Hg] Dr. Mitali Alonzo Work Phone: [facility] 06-21-2022 13:24-0400 Body height 170.[address] Mitali Alozno Work Phone: [facility] 06-21-2022 13:24-0400 SaO2% (BldA) [Mass fraction] 100 % Dr. Mitali Alonzo Work Phone: [facility] 05-20-2022 11:57-0500 Body temperature 98.1 [degF] Dr. Mitali Alonzo Work Phone: [facility] 05-20-2022 11:57-0500 Diastolic blood pressure 54 mm[Hg] Dr. Mitali Alonzo Work Phone: [facility] 05-20-2022 11:57-0500 Heart rate 69 /min Dr. Mitali Alonzo Work Phone: [facility] 05-20-2022 11:57-0500 Respiratory rate 16 /min Dr. Mitali Alonzo Work Phone: [facility] 05-20-2022 11:57-0500 SaO2% (BldA) [Mass fraction] 100 % Dr. Mitali Alonzo Work Phone: [facility] 05-20-2022 11:57-0500 Systolic blood pressure 100 mm[Hg] Dr. Mitali Alonzo Work Phone: [facility] 05-20-2022 10:16-0500 Body height 170.[address] Mitali Alonzo Work Phone: [facility] 05-20-2022 10:16-0500 Body mass index (BMI) [Percentile] Per age and sex 52.2 % Dr. Mitali Alonzo Work Phone: [facility] 05-20-2022 10:16-0500 Body mass index (BMI) [Ratio] 21.9 kg/m2 Dr. Mitali Alonzo Work Phone: [facility] 05-20-2022 10:16-0500 Body weight 63.[address] Mitali Alonzo Work Phone: [facility] 03-10-2022 08:22-0500 Body height 172.[address] Mitali Alonzo Work Phone: [facility] Work Phone: 03-10-2022 08:22-0500 Body mass index (BMI) [Percentile] Per age and sex 26.5 % Dr. Mitali Alonzo Work Phone: [facility] 03-10-2022 08:22-0500 Body mass index (BMI) [Ratio] 19.9 kg/m2 Dr. Mitali Alonzo Work Phone: [facility] 03-10-2022 08:22-0500 Body weight 59.[address] Mitali Alonzo Work Phone: [facility] 03-10-2022 08:22-0500 Diastolic blood pressure 67 mm[Hg] Dr. Mitali Alonzo Work Phone: [facility] 03-10-2022 08:22-0500 Heart rate 70 /min Dr. Mitali Alonzo Work Phone: [facility] 03-10-2022 08:22-0500 SaO2% (BldA) [Mass fraction] 98 % Dr. Mitali Alonzo Work Phone: [facility] 03-10-2022 08:22-0500 Systolic blood pressure 104 mm[Hg] Dr. Mitali Alonzo Work Phone: [facility] 02-24-2022 08:05-0500 Body temperature 97.4 [degF] Dr. Mitali Alonzo Work Phone: [facility] 02-24-2022 08:05-0500 Diastolic blood pressure 57 mm[Hg] Dr. Mitali Alonzo Work Phone: [facility] 02-24-2022 08:05-0500 Heart rate 75 /min Dr. Mitali Alonzo Work Phone: [facility] 02-24-2022 08:05-0500 Respiratory rate 18 /min Dr. Mitali Alonzo Work Phone: [facility] 02-24-2022 08:05-0500 SaO2% (BldA) [Mass fraction] 99 % Dr. Mitali Alonzo Work Phone: [facility] 02-24-2022 08:05-0500 Systolic blood pressure 105 mm[Hg] Dr. Mitali Alonzo Work Phone: [facility] 02-24-2022 06:24-0500 Body height 172.[address] Mitali Alonzo Work Phone: [facility] Work Phone: 02-24-2022 06:24-0500 Body mass index (BMI) [Percentile] Per age and sex 44 % Dr. Mitali Alonzo Work Phone: [facility] 02-24-2022 06:24-0500 Body mass index (BMI) [Ratio] 21.2 kg/m2 Dr. Mitali Alonzo Work Phone: [facility] 02-24-2022 06:24-0500 Body weight 63.[address] Mitali Alonzo Work Phone: [facility] 12-23-2021 08:15-0400 Body mass index (BMI) [Percentile] Per age and sex 65.5 % Dr. Mitali Alonzo Work Phone: [facility] Work Phone: 12-23-2021 08:15-0400 Body mass index (BMI) [Ratio] 23.1 kg/m2 Dr. Mitali Alonzo Work Phone: [facility] Work Phone: 12-23-2021 08:15-0400 Body weight 67.[address] Mitali Alonzo Work Phone: [facility] Work Phone: 12-23-2021 08:15-0400 Diastolic blood pressure 67 mm[Hg] Dr. Mitali Alonzo Work Phone: [facility] Work Phone: 12-23-2021 08:15-0400 Heart rate 92 /min Dr. Mitali Alonzo Work Phone: [facility] Work Phone: 12-23-2021 08:15-0400 SaO2% (BldA) [Mass fraction] 98 % Dr. Mitali Alonzo Work Phone: [facility] Work Phone: 12-23-2021 08:15-0400 Systolic blood pressure 103 mm[Hg] Dr. Mitali Alonzo Work Phone: [facility] Work Phone: 05-02-2019 00:17-0500 Body surface area Derived from formula [facility] ([place]) Comment on above: Performed By: #### BSA #### [facility] [address] [place] [id number] Encounters Encounter Date Encounter Type Care Provider Facility Start: 11-21-2024 End: 11-21-2024 Patient encounter procedure Mara Talley NP-C -[facility] Work Phone: Start: 11-21-2024 End: 11-21-2024 Patient encounter status Mara MESA [facility] Start: 11-21-2024 End: 11-21-[address] Mitali Alonzo MD Work Phone: -[facility] Start: 10-01-2024 Registered Referred [facility] -Laboratory Work Phone: Start: 10-01-2024 ambulatory Mitali Alonzo Facility: [facility] Start: 08-27-2024 End: 08-27-2024 Patient encounter procedure Tyson Sotelo -[facility] Work Phone: Start: 08-27-2024 End: 08-27-[address] Mitali Alonzo MD Work Phone: [facility] Work Phone: Start: 04-04-2024 End: 04-05-2024 ambulatory Doris Walden Facility:[facility] Start: 03-01-2024 End: 03-01-2024 ambulatory Mitali Alonzo Facility:[facility] Start: 01-29-2024 End: 01-29-2024 ambulatory Leobardo Huynh Facility:[facility] Start: 01-22-2024 End: 01-22-2024 ambulatory Leobardochester Hanks Facility:[facility] Start: 01-03-2024 End: 01-03-2024 ambulatory Mitali Alonzo Facility:[facility] Start: 12-08-2023 End: 12-08-2023 ambulatory MITALI ALONZO Facility:[facility] Start: 12-08-2023 End: 12-08-2023 Patient encounter procedure Faiza Thomas MD Work Phone: Rheumatology Comment on above: Celiac disease (Prim erasmo Dx); Crohn's disease without complication, unspecified gastrointestinal tract location (HCC); Centromere antibody positive; Hair loss; Recurrent iritis of right eye; Scleral disorder Start: 11-21-[address] Mitali Alonzo MD Work Phone: [facility] Start: 08-28-2023 Telephone encounter Faiza otero MD Work Phone: Rheumatology Comment on above: Received Outside Med [facility] Start: 03-27-2023 End: 03-27-[address] Mitali Alonzo Work Phone: [facility] Work Phone: Start: 03-27-2023 End: 03-27-[address] Mitali Alonzo Work Phone: [facility] Work Phone: Start: 01-01-2023 End: 01-01-2023 Emergency department patient visit Dr. Mitali Alonzo Work Phone: [facility]-Emergency Department Work Phone: Start: 12-13-2022 End: 12-13-[address] Mitali Alonzo Work Phone: [facility] Start: 07-19-2022 End: 07-19-[address] Mitali Alonzo Work Phone: [facility] Work Phone: Start: 07-19-2022 End: 07-19-[address] Mitali Alonzo Work Phone: [facility]-Medical Out Start: 06-21-2022 End: 06-21-[address] Mitali Alonzo Work Phone: [facility] Work Phone: Start: 06-21-2022 End: 06-21-[address] [facility] Start: 06-02-2022 End: 06-02-[address] Mitali Alonzo Work Phone: [facility] Start: 05-20-2022 End: 05-20-[address] Mitali Alonzo Work Phone: [facility] Work Phone: Start: 05-20-2022 End: 05-20-[address] [facility] Start: 05-17-[address] Mitali Alonzo Work Phone: [facility] Start: 05-17-[address] Binta Alonzo Work Phone: [facility] Start: 03-10-2022 End: 03-10-[address] Mitali Alonzo Work Phone: [facility] Work Phone: Start: 03-10-2022 End: 03-10-[address] Mitali Alonzo Work Phone: [facility]-Laboratory Start: 03-10-2022 End: 03-10-[address] Mitali Alonzo Work Phone: [facility]astroenter[facility] Start: 02-24-2022 End: 02-24-[address] Mitali Alonzo Work Phone: [facility] Start: 02-24-2022 Non-patient / Non-visit Dr. Ravi Alonzo Work Phone: [facility] Start: 02-24-2022 End: 02-24-2022 Admission to same day surgery center Dr. Mitali Alonzo Work Phone: [facility]-Endoscopy Start: 02-24-2022 End: 02-24-[address] Mitali Alonzo Work Phone: [facility] Work Phone: Start: 12-23-2021 End: 12-23-[address] Mitali Alonzo Work Phone: [facility] Start: 12-16-2021 End: 12-16-[address] Mitali Alonzo Work Phone: [facility] Work Phone: Start: 12-16-2021 End: 12-16-[address] Mitali Alonzo Work Phone: [facility] Start: 11-18-2021 End: 11-18-[address] Mitali Alonzo Work Phone: [facility] Work Phone: Start: 11-18-2021 End: 11-18-[address] Mitali Alonzo Work Phone: [facility] Start: 11-09-2021 End: 11-09-[address] Mitali Alonzo Work Phone: [facility] Work Phone: Start: 11-09-2021 End: 11-09-[address] Mitali Alonzo Work Phone: [facility]-Laboratory Start: 10-26-2021 End: 10-26-[address] Mitali Alonzo Work Phone: [facility] Start: 09-21-2021 End: 09-21-[address] [facility] Start: 09-10-2021 End: 09-10-[address] Mitali Alonzo Work Phone: [facility] Start: 09-09-2021 End: 09-09-[address] [facility]ital[facility]zo [facility] Start: 09-08-2021 End: 09-08-[address] Mitali Alonzo Work Phone: [facility] Start: 09-01-2021 End: 09-01-[address] Mitali Alonzo Work Phone: [facility] G[facility]enter[facility] Start: 09-01-2021 Non-patient / Non-visit Dr. Ravi Alonzo Work Phone: [facility] Start: 09-01-2021 End: 09-01-[address] [facility]ital[facility]zo [facility] Start: 07-01-2021 End: 07-01-2021 Patient encounter procedure [facility] Start: 05-11-2021 End: 05-11-2021 [facility] Date Procedure Procedure Detail Performing Clinician Start: 10-01-2024 Serum inorganic phos phate measurement Dr. Mitali Alonzo MD Work Phone: Start: 03-27-[address] Mitali Alonzo Work Phone: Start: 01-01-2023 Plain chest X-ray Dr. Mariela Alonzo Work Phone: Start: 02-24-[address] Mitali Alonzo Work Phone: Start: 12-16-2021 Radionuclide imaging of liver and/or biliary tract using radioactive isotope Dr. Mitali Alonzo Work Phone: Start: 11-18-2021 Radionuclide gastric emptying study Dr. Mitali Alonzo Work Phone: Start: 09-10-2021 Diagnostic radiograp hy of abdomen Dr. Mitali Alonzo Work Phone: Start: 09-08-2021 Diagnostic radiograp hy of abdomen Dr. iMtali Alonzo Work Phone: Start: 07-01-2021 Plain chest X-ray Lactoferrin measurement Dr. Mitali Alonzo Work Phone: Plan of Treatment Date Care Activity Detail Author Start: 08-12-2024 Urine microalbumin profile DTaP,Tdap,Td Vaccine (7 - Td or Tdap) [facility] Start: 12-08-2023 End: 03-08-2024 25-hydroxyvitamin D3 [Mass/volume] in Serum or Plasma VITAMIN D 25 HYDROXY Lab Routine Celiac disease Crohn's disease without complication, unspecified gastrointestinal tract location (HCC) Centromere antibody positive Hair loss Expected: 12/08/2023, Expires: 03/08/2024 [facility] Comment on above: Expected: 12/08/2023, Expires: Start: 12-08-2023 End: 03-08-2024 MONROE BY IFA WITH REFLEX MONROE BY IFA WITH REFLEX Lab Routine Celiac disease Crohn's disease without complication, unspecified gastrointestinal tract location (HCC) Centromere antibody positive Hair loss Expected: 12/08/2023, Expires: 03/08/2024 [facility] Comment on above: Expected: 12/08/2023, Expires: 4 Start: 12-08-2023 End: 03-08-2024 CBC W Auto Differential panel - Blood COMPLETE BLOOD COUNT AND DIFFERENTIAL Lab Routine Celiac disease Crohn's disease without complication, unspecified gastrointestinal tract location (HCC) Centromere antibody positive Hair loss Expected: 12/08/2023, Expires: 03/08/2024 [facility] Work Phone: Comment on above: Expected: 12/08/2023, Expires: Start: 12-08-2023 End: 03-08-2024 Comprehensive metabolic 2000 panel - Serum or Plasma COMPREHENSIVE METABOLIC PANEL Lab Routine Celiac disease Crohn's disease without complication, unspecified gastrointestinal tract location (HCC) Centromere antibody positive Hair loss Expected: 12/08/2023, Expires: 03/08/2024 [facility] Comment on above: Expected: 12/08/2023, Expires: Start: 12-08-2023 End: 03-08-2024 Extractable nuclear Ab panel - Serum ANTI SHASHA ID Lab Routine Celiac disease Crohn's disease without complication, unspecified gastrointestinal tract location (HCC) Centromere antibody positive Hair loss Expected: 12/08/2023, Expires: 03/08/2024 [facility] Comment on above: Expected: 12/08/2023, Expires: Start: 12-08-2023 End: 03-08-2024 Ferritin [Mass/volume] in Serum or Plasma FERRITIN Lab Routine Celiac disease Crohn's disease without complication, unspecified gastrointestinal tract location (HCC) Centromere antibody positive Hair loss Expected: 12/08/2023, Expires: 03/08/2024 [facility] Comment on above: Expected: 12/08/2023, Expires: Start: 12-08-2023 End: 03-08-2024 Iron and Iron binding capacity panel - Serum or Plasma IRON AND TIBC Lab Routine Celiac disease Crohn's disease without complication, unspecified gastrointestinal tract location (HCC) Centromere antibody positive Hair loss Expected: 12/08/2023, Expires: 03/08/2024 [facility] Comment on above: Expected: 12/08/2023, Expires: Start: 12-08-2023 End: 03-08-[address]US AN[address] Lab Routine Celiac disease Crohn's disease without complication, unspecified gastrointestinal tract location (HCC) Centromere antibody positive Hair loss Expected: 12/08/2023, Expires: 03/08/2024 [facility] Comment on above: Expected: 12/08/2023, Expires: Start: 12-08-2023 End: 03-08-2024 Natriuretic peptide.B prohormone N-Terminal [Mass/volume] in Serum or Plasma NT PRO BNP Lab Routine Celiac disease Crohn's disease without complication, unspecified gastrointestinal tract location (HCC) Centromere antibody positive Hair loss Expected: 12/08/2023, Expires: 03/08/2024 [facility] Comment on above: Expected: 12/08/2023, Expires: Start: 12-08-2023 End: 03-08-2024 Thyrotropin [Units/volume] in Serum or Plasma THYROID STIMULATING HORMONE Lab Routine Celiac disease Crohn's disease without complication, unspecified gastrointestinal tract location (HCC) Centromere antibody positive Hair loss Expected: 12/08/2023, Expires: 03/08/2024 [facility] Comment on above: Expected: 12/08/2023, Expires: Start: 12-08-2023 End: 12-08-2023 Patient encounter procedure 12/08/2023 9:00 AM EDT Office Visit Rheumatology [address] [address] Faiza Thomas MD [address] [place] [address] [facility] Comment on above: [facility] Start: 11-12-2023 Covid-19 Vaccine ( season) Covid-19 Vaccine () [facility] Start: 11-12-2023 Influenza vaccination [facility] Start: 06-09-2023 Screening for malignant neoplasm of cervix Cervical Cancer Screening [facility] Start: 03-27-2023 Protein measurement [facility] Start: 03-13-2023 Behavioral Health Screening Behavioral Health Screening [facility] Start: 01-01-2023 [facility] Start: 11-11-2022 Covid-19 Vaccine ( season) Covid-19 Vaccine ( season) [facility] Start: 06-21-2022 Iv infusion therapy/prophylaxis /dx 1st to 1 hr [facility] Start: 05-20-2022 Iv infusion therapy/prophylaxis /dx 1st to 1 hr THER/PROPH/DIAG IV INF [facility] Start: 02-24-2022 Colonoscopy w/biopsy single/multiple COLONOSCOPY AND BIOPSY [facility] Start: 02-24-2022 Egd transoral biopsy single/multiple EGD BIOPSY SINGLE/MULTIPLE [facility] Start: 02-24-2022 Patient discharge [facility] Start: 11-09-2021 Helicobacter pylori Ag [Presence] in Stool by Immunoassay [facility] Work Phone: Start: 11-09-2021 Protein measurement [facility] Work Phone: Start: 11-09-2021 Immunoglobulin measurement [facility] Work Phone: Start: 11-09-2021 Serum immunofixation [facility] Work Phone: Start: 11-09-2021 [facility] Work Phone: Start: 09-09-2021 Elastase, pancreatic (el-1), fecal; quantitative [facility] Work Phone: Start: 09-09-2021 Helicobacter pylori Ag [Presence] in Stool by Immunoassay [facility] Work Phone: Start: 09-09-2021 Protein measurement [facility] Work Phone: Start: 2020 Anxiety Screening Anxiety Screening [facility] Start: 2020 Depression Screening Depression Screening [facility] Start: 2020 GC (Gonorrhea) Screening (18-) GC (Gonorrhea) Screening (18-) [facility] Start: 2020 Hepatitis C screening Hepatitis C Screening [facility] Start: 2020 HIV screening HIV Screening [facility] Start: 2020 Screening for Chlamydia trachomatis Chlamydia Screening (18-) [facility] Start: 2018 Meningococcal B Vaccine: Consider Based On Risk (1 of 2 - Patient Seeks Protection) Meningococcal B Vaccine: Consider Based On Risk (1 of 2 - Patient Seeks Protection) [facility] Start: 2016 Peds To Adult Transition Annual Assessment Peds To Adult Transition Annual Assessment [facility] Start: 2014 Peds To Adult Transition Initial Discussion Peds To Adult Transition Initial Discussion [facility] Albumin [Moles/volum e] in Serum or Plasma [facility] Work Phone: Albumin/Globulin ratio [facility] Work Phone: Electrophoresis: [id number] [facility] Work Phone: Electrophoresis: golden ma globulin [facility] Work Phone: Globulin measurement [facility] Work Phone: Helicobacter pylori Ag [Presence] in Stool by Immunoassay [facility] Work Phone: IgA [Mass/volume] in Serum or Plasma [facility] Work Phone: IgE [Units/volume] i n Serum or Plasma [facility] Work Phone: IgG [Mass/volume] in Serum or Plasma [facility] Work Phone: IgM [Mass/volume] in Serum or Plasma [facility] Work Phone: Neutrophil cytoplasm ic Ab.classic [Units/volume] in Serum [facility] Work Phone: P-ANCA measurement [facility] Work Phone: Patient Education ED Chest Pain, Uncertain Cause ED Chest Wall Pain, Costochondritis [facility] Work Phone: Patient referral [facility] Work Phone: Protein electrophore sis panel - Serum or Plasma [facility] Work Phone: Protein measurement [facility] Work Phone: Radionuclide gastric emptying study [facility] Work Phone: Radionuclide imaging of liver and/or biliary tract using radioactive isotope [facility] Work Phone: Serum protein electrophoresis [facility] Work Phone: End: 01-06-2025 XR Foot - bilateral AP and Lateral and oblique XR FOOT GENERAL 3V AP/LAT/OBL BILATERAL Radiology Routine Celiac disease Crohn's disease without complication, unspecified gastrointestinal tract location (HCC) Centromere antibody positive Hair loss 1 Occurrences starting 12/08/2023 until 01/06/2025 [facility] Comment on above: 1 Occurrences starting 12/08/2023 until 01/06/2025 Immunizations Immunization Date Immunization Notes Care Provider Fa [facility] 12-21-2021 influenza, injectabl e, quadrivalent, preservative free Dr. Mitali Alonzo Work Phone: [facility] 12-21-2021 influenza, seasonal, injectable Dr. Mitali Alonzo Work Phone: [facility] 12-21-2021 influenza virus vacc ine, unspecified formulation Faiza Thomas MD Work Phone: [facility] 11-21-2020 Covid (Pfizer) Dr. Mitali cardenas Work Phone: [facility] 10-30-2020 Covid (Pfizer) Dr. Mitali cardenas Work Phone: [facility] 09-04-2019 meningococcal polysaccharide (groups A, C, Y and W-135) diphtheria toxoid conjugate vaccine (MCV4P) Dr. Mitali Alonzo Work Phone: [facility] 10-30-2015 Human Papillomavirus 9-valent vaccine Faiza Thomas MD Work Phone: [facility] 08-12-2014 human papilloma viru s vaccine, quadrivalent Faiza Thomas MD Work Phone: [facility] 08-12-2014 meningococcal oligosaccharide (groups A, C, Y and W-135) diphtheria toxoid conjugate vaccine (MCV4O) Faiza Thomas MD Work Phone: [facility] 08-12-2014 meningococcal polysaccharide (groups A, C, Y and W-135) diphtheria toxoid conjugate vaccine (MCV4P) Dr. Mitali Alonzo Work Phone: [facility] 08-12-2014 tetanus toxoid, redu diann diphtheria toxoid, and acellular pertussis vaccine, adsorbed Dr. Mitali Alonzo Work Phone: [facility] 03-23-2012 influenza virus vacc ine, live, attenuated, for intranasal use Faiza Thomas MD Work Phone: [facility] 03-23-2012 influenza virus vacc ine, unspecified formulation Faiza Thomas MD Work Phone: [facility] 12-18-2010 influenza virus vacc ine, live, attenuated, for intranasal use Faiza Thomas MD Work Phone: [facility] 01-12-2010 influenza virus vacc ine, live, attenuated, for intranasal use Faiza Thomas MD Work Phone: [facility] 09-15-[address] Mitali Alonzo Work Phone: [facility] 12-06-2008 influenza virus vacc ine, live, attenuated, for intranasal use Faiza Thomas MD Work Phone: [facility] Work Phone: 06-19-2008 hepatitis A vaccine, unspecified formulation Faiza Thomas MD Work Phone: [facility] 10-22-2007 influenza virus vacc ine, live, attenuated, for intranasal use Faiza Thomas MD Work Phone: [facility] 06-13-2007 diphtheria, tetanus toxoids and acellular pertussis vaccine Faiza Thomas MD Work Phone: [facility] 06-13-2007 hepatitis A vaccine, unspecified formulation Faiza Thomas MD Work Phone: [facility] 06-13-2007 poliovirus vaccine, inactivated Faiza Thomas MD Work Phone: [facility] 01-17-2007 influenza virus vacc ine, live, attenuated, for intranasal use Faiza Thomas MD Work Phone: [facility] 06-16-2006 measles, mumps and rubella virus vaccine Faiza Thomas MD Work Phone: [facility] 01-20-2006 influenza virus vacc ine, whole virus Faiza Thomas MD Work Phone: [facility] 01-03-2005 influenza virus vacc ine, unspecified formulation Faiza Thomas MD Work Phone: [facility] 01-19-2004 influenza virus vacc ine, whole virus Faiza Thomas MD Work Phone: [facility] 12-10-2003 diphtheria, tetanus toxoids and acellular pertussis vaccine Faiza Thomas MD Work Phone: [facility] 12-10-2003 influenza virus vacc ine, unspecified formulation Faiza Tohmas MD Work Phone: [facility] 12-10-2003 pneumococcal conjuga te vaccine, 7 valent Faiza Thomas MD Work Phone: [facility] 12-10-2003 poliovirus vaccine, inactivated Faiza Thomas MD Work Phone: [facility] 10-17-2003 measles, mumps and rubella virus vaccine Faiza Thomas MD Work Phone: [facility] 10-17-2003 varicella virus vaccine Lisa Thomas MD Work Phone: [facility] 07-15-2003 haemophilus influenz ae type b conjugate and Hepatitis B vaccine Faiza Thomas MD Work Phone: [facility] 2002 diphtheria, tetanus toxoids and acellular pertussis vaccine Faiza Thomas MD Work Phone: [facility] 2002 pneumococcal conjuga te vaccine, 7 valent Faiza Thomas MD Work Phone: [facility] 2002 diphtheria, tetanus toxoids and acellular pertussis vaccine Faiza Thomas MD Work Phone: [facility] 2002 haemophilus influenz ae type b conjugate and Hepatitis B vaccine Faiza Thomas MD Work Phone: [facility] 2002 pneumococcal conjuga te vaccine, 7 valent Faiza Thomas MD Work Phone: [facility] 2002 poliovirus vaccine, inactivated Faiza Thomas MD Work Phone: [facility] 2002 diphtheria, tetanus toxoids and acellular pertussis vaccine Faiza Thomas MD Work Phone: [facility] 2002 haemophilus influenz ae type b conjugate and Hepatitis B vaccine Faiza Thomas MD Work Phone: [facility] 2002 pneumococcal conjuga te vaccine, 7 valent Faiza Thomas MD Work Phone: [facility] 2002 poliovirus vaccine, inactivated Faiza Thomas MD Work Phone: [facility] Payers Date Payer Category Payer Unknown [id number] 2024 Self-pay [id number] 2023 Unknown [employer] P[employer] [id number] 2023-Present [phone] [address] [place] [address] PPO [id number] 2023 Unknown [id number] Unknown 0 [id number] Unknown [id number] Unknown [id number] Unknown [id number] Unknown [id number] Unknown [id number] Unknown [id number] Unknown [id number] Unknown [id number] Social History Date Type Detail Facility Start: 06-21-2018 End: 03-27-2023 Tobacco smoking status [facility] Unknown if ever smoked [facility] Start: 2002 Sex Assigned At Female [facility] Start: 03-27-2017 End: 11-21-2023 Tobacco smoking status INIS Never smoked tobacco [facility] Start: 03-27-2017 End: 12-08-2023 Tobacco use and exposure Smokeless tobacco non-user [facility] Start: 03-27-2017 End: 12-08-2023 Alcohol intake Current non-drinker of alcohol (finding) [facility] Start: 02-04-2020 End: 12-08-2023 History of Social function [facility] Start: 02-04-2020 End: 12-08-2023 Tobacco use panel [facility] National Score (1-100), lower number is lower risk Not on file [facility] Start: 2002 Sex Assigned At Not on file [facility] NEGATED: Highlighted row [facility] Goals Date Patient Goal Desired Activity /State Mental Status Date Assessment Result Facility 01-01-2023 Cognitive function Voice/Name [facility] Work Phone: 07-19-2022 Cognitive function Voice/Name [facility] Work Phone: 06-21-2022 Cognitive function Voice/Name [facility] Work Phone: 05-20-2022 Cognitive function Awake;Alert;A ppropriate;Fol lows Commands [facility] Work Phone: 02-24-2022 Cognitive function Voice/Name [facility] Work Phone: Clinical Notes 08-28-2023 to 08-27-2024 Note Date & Type Note Facility 08-27-2024 Evaluation note Diagnosis Onset Date Resolution Celiac disease chronic August 27, 2024 9:07am Constipation chronic August 27, 025 9:07am Crohn's disease chronic August 9:07am Encounter for routine gynecological examination noneactive November 21, 2024 10:25am [facility] Work Phone: [phone] Instructions* Patient Instructions* Faiza Thomas MD - 12/08/2023 10:11 AM EDT If you would like me to provide secure electronic information about your patients please consider signing up for our Marah service. This free service can be contacted at or , and most records for your patients would be available almost immediately after they are seen. documented in this encounterThe [facility]09-27-[facility]24 History of Present illness Narrative* Faiza Thomas MD - 12/08/2023 9:00 AM EDT Referred by: Doris Walden MD [address] [facility] [facility] [place] [address] PCP: Mitali Alonzo MD [address] [place] [facility] [phone] My final recommendations will be communicated back to the requesting physician by way of shared medical record or letter to the requesting physician by US mail. ACTIVE PROBLEM LIST Scleral Disorder Sever's Apophysitis, Bilateral Ms. Leobardo Colin is a 23-year-old female Chief Complaint: Ms. Leobardo Colin presents today for evaluation of possible scleroderma. History of Present Illness: 12/07/2023 Patient presents to clinic with her father. She was referred by Dr. Doris Walden MD, director social at [facility] in [facility]. She has been following with Dr. Walden for about 2 years. The reason for referral is the detection of anticentromere antibody (?). In 2019, she received the COVID-19 vaccine. 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 A few years later, she had an influenza vaccine and the uveitis flared up again inher right eye. Her primary care provider thought there might be an underlying rheumatological causeto these flare ups. She has had three episodes of uveitis so far, which have been correlated with receiving a vaccine. History of Present Illness: 12/07/2023 The patient presents to the clinic with her father. She was referred by Dr. Doris Walden MD, a director social at [facility] in [place], [place]. She hasbeen following Dr. Walden for about two years. Today's referral is due to the detection of an anticentromere antibody (?). In 2019, she received the COVID-19 vaccine. As a possible side effect, she developed severe uveitisin her right eye. A few years later, she had an influenza vaccine, and the uveitis flared up again in her right eye. Her primary care provider thought there might be an underlying rheumatological cause to these flare ups. She has had three episodes of uveitis so far, which have been correlated withreceiving a vaccine. She also has a history of Crohn's and Celiac disease. Both are currently under control. They were diagnosed via a colonoscopy (Crohn's disease) and EGD (celiac disease). She has been on a gluten freediet for two years now. She experienced some weight loss when she started the gluten-free diet, butshe reports no weight loss prior to that. Today, her BMI is 23.44 kg/m She reports intermittent nodules on the tips of her toes and the balls of her feet that are very painful. She has not seen a twist packer so far. The pain is worse in the morning but gets better duringthe day. She does not take muku-wmm-sqxsyqj NSAIDs for pain control. She was prescribed Topiramate to manage her migraines, which are under control. She reports her toes turn blue in the cold, not her fingers. She notes bilateral MTP and PIP joint pain in her toes. She notes some intermittent morning stiffness that lasts less than 30 minutes. It improves with activity. 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 She denies Raynaud's phenomenon (the first symptom of systemic sclerosis). Also, she denies any history of ischemic digital ulcers, dry eyes and mouth, acid reflux symptoms, dysphagia, early satiety,constipation, diarrhea, or fecal incontinence. She also denies exertional shortness of breath or a dry cough. Her school requires her to receive the influenza vaccine despite her history of uveitis flare-ups with prior vaccines. She also has a history of Crohn's and Celiac disease. Both are currently under control. They were diagnosed via a colonoscopy (Crohn's disease) and EGD (celiac disease). She has been on a gluten freediet for two years now. She experienced some weight loss when she started the gluten-free diet but she reports no weight loss prior to that. Today, her BMI is 23.44 kg/m She reports intermittent nodules on the tips on her toes and balls of her feet that are very painful. She has not seen a twist packer so far. It is worse in the morning but get better during the day. She does not take ggws-cvy-avlzwfx NSAIDs for pain control. She was prescribed Topiramate to manage her migraines, which are under control. She reports her toes turn blue in the cold, not her fingers. She notes bilateral MTP and PIP joint pain in her toes. She notes some intermittent morning stiffness that lasts less than 30 minutes. It improves with activity. 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 She denies Raynaud's phenomenon (the first symptom of systemic sclerosis). Also, she denies any history of ischemic digital ulcers, dry eyes and mouth, acid reflux symptoms, dysphagia, early satiety,constipation, diarrhea, or fecal incontinence. She also denies exertional shortness of breath or a dry cough. Her school requires her to receive the influenza vaccine, in spite of her history of uveitis flare ups with prior vaccines. ................................................................................ .................................... Pertinent prior Office Visits or Imaging: No pertinent visits. Pertinent prior Lab Studies: No recent blood work. Current Outpatient Medications Medication Sig busPIRone (BUSPAR) 5 mg tablet Take 1 tablet by mouth every 12 hours. dicyclomine (BENTYL) 10 mg capsule Take 1 capsule by mouth every 12 hours. doxycycline 20 mg tablet TAKE ONE TAB TWICE DAILY. TAKE WITH A FULL GLASS OF WATER. Norgestimate-Ethinyl Estradiol 0.18/0.215/0.25 mg-35 mcg (28) Take 1 tablet by mouth every afternoon. SKYRIZI 360 mg/2.4 mL (150 mg/mL) wearable injector topiramate (TOPAMAX) 25 mg tablet Take 1 tablet by mouth every 12 hours. No current facility-administered medications for this visit. Review of Systems CONSTITUTION: Negative for: Fever and Recent weight change HEENT: Negative for: Nosebleeds, Mouth sores, Trouble swallowing and Dry mouth RESPIRATORY: Negative for: Cough, Shortness of breath, Pain with breathing, Coughing up blood GASTROINTESTINAL: Positive for: Heartburn Negative for: Melena, Diarrhea and Abdominal pain MUSCULOSKELETAL: Positive for: Arthralgias Negative for: Myalgias, Muscle weakness, Joint swelling and Morning Joint Stiffness NEUROLOGICAL: Positive for: Headaches Negative for: Numbness and Memory loss SKIN: Positive for: Hair loss Negative for: Rash, Sun Sensitive Rash, Skin changes and Nail changes EYES: Negative for: Eye pain, Eye redness, Eye dryness and visual disturbance CARDIOVASCULAR: Negative for: Chest pain and Leg swelling GENITOURINARY: Negative for: Dysuria, Hematuria and Ulcerations HEMATOLOGIC/LYMPHATIC: Negative for: Swollen glands PAST MEDICAL HISTORY Diagnosis Date Menstrual periods irregular 02/25/2017 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 no longer followed by urology Scleral disorder 06/16/2011 Sever's apophysitis, bilateral 08/12/2014 PAST SURGICAL HISTORY Procedure Laterality Date NONE Social History Tobacco Use Smoking status: Never Smokeless tobacco: Never Substance Use Topics Alcohol use: No Drug use: No FAMILY HISTORY Problem Relation Age of Onset None Mother None Father None Maternal Grandmother Diabetes Maternal Grandfather Lipids Maternal Grandfather Hypertension Maternal Grandfather Arthritis Paternal Grandmother Rheumatoid Hypertension Paternal Grandmother Lipids Paternal Grandfather Hypertension Paternal Grandfather Cancer Paternal Grandfather Lymphoma/Small cell carcinoma other (Kidney reflux) Sister Physical Exam: Vitals: BP 122/83 Pulse 90 Temp 37.1 C (98.7 F) (Temporal) Ht 171.5 cm (5' 7.5) Wt 68.9 kg(151 lb 14.4 oz) LMP 03/16/2017 BMI 23.44 kg/m General appearance: Well appearing, alert, in no acute distress, well-hydrated, well nourished. Skin: Blanchable discoloration on undersurface of right 1st digit. Tenderness on outer aspect of right third digit. MTP joint tenderness. Few small telangiectasias on dorsum of her left hand. No puffy fingers, sclerodactyly, proximal scleroderma, ischemic digital ulcers, digital pitting scars, or ca lcinosis. Head: Normocephalic, no masses, lesions, tenderness or abnormalities Eyes: Anicteric sclera. Pupils are equally round and reactive to light. Extraocular movements are intact. Spotty pigmentation of right sclera bellow cornea. Ears: External ears normal, canals clear Nose/Sinuses: Nares normal, septum midline, mucosa normal, no drainage or sinus tenderness Oropharynx: Lips, mucosa, and tongue normal, teeth and gums normal, oropharynx normal Neck: Supple, no adenopathy; thyroid symmetric, normal size, no bruits Back: Normal exam Lungs: lungs clear to auscultation. No wheezing, rhonchi, rales Heart: RRR without murmur, gallop, or rubs. No ectopy Abdomen: Normal abdominal exam, Abdomen soft, non-tender. Bowel sounds normal. No masses, organomegaly Extremities: No deformities, edema, skin discoloration, clubbing or cyanosis. Good capillary refill. Musculoskeletal: No joint swelling, deformity, or tenderness. Peripheral pulses: Normal Neuro: Gait normal. Reflexes normal and symmetric. Sensation grossly intact. Nailfold capillaroscopy: Few dilated capillary loops. A few microhemorrhages in the cuticle of the right little finger. No grossly abnormal nailfold capillaries. 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 The patient is negative for HLA-B27. There is no evidence of sarcoidosis or Bechet's disease. She was found to have an anticentromere antibody but no clinical evidence of systemic sclerosis. She has been following up with her local director social, Dr. Doris Walden MD, in [facility] [place], [place], who has referred her for evaluation (second opinion) for possible limited scleroderma. Today, there is no definite CLINICAL evidence of an underlying autoimmune rheumatologic disorder including systemic sclerosis (scleroderma), rheumatoid arthritis, lupus, polymyositis/dermatomyositis,Sj gren syndrome, or systemic vasculitis. Celiac disease: Symptoms are well-controlled on a gluten-free diet. Crohn's disease: Currently, she is not on any immunomodulatory therapy for her Crohn's disease. Recommendations: I have ordered labs today. She will check these labs locally. Please continue current medications. Please report to me if new symptoms or signs suggestive of systemic sclerosis evaluation develop. Today, we discussed what symptoms or signs to look for. Final treatment recommendations will be based on completed evaluation and establishment of a diagnosis. Follow-up: She will follow up with her local director social, Dr. Doris Walden MD, and consider seeing me in the future if necessary. Scribe Attestation: By signing my name below, I, Christina Diggs, attest that this documentation has been prepared under the direction and in the presence of Faiza Thomas MD. Electronically Signed:janis Moncada, December 08, 2023 10:13 AM Faiza Jaffe MD, personally performed the services described in this documentation. All medical record entries made by the chanelibe were at my direction and in my presence. I have reviewed thechart and agree that the record reflects my personal performance and is accurate and complete 12/09/2023 10:29 AM I spent a total of 65 minutes on the date of the service which included preparing to see the patient, completing clinical documentation, obtaining and/or reviewing separately obtained history, counseling and educating the patient/family/caregiver, ordering medications, tests, or procedures, communic ating with other HCPs (not separately reported), independently interpreting results (not separatelyreported), communicating results to the patient/family/caregiver and care coordination (not separately reported). Faiza Thomas MD documented in this encounterThe [facility]09-27-2024 NoteHNO ID: [id number] Author: FAIZA THOMAS MD Service: ? Author Type: Physician Type: Progress Notes Filed: 12/09/2023 10:37 Note Text: Referred by: Doris Walden MD [address] [facility] [address] PCP: Mitali Alonzo MD [address] [facility] [phone] My final recommendations will be communicated back to the requesting physician by way of shared medical record or letter to the requesting physician by US mail. ACTIVE PROBLEM LIST Scleral Disorder Sever's Apophysitis, Bilateral Ms. Leobardo Colin is a 23-year-old female Chief Complaint: Ms. Leobardo Colin presents today for evaluation of possible scleroderma. History of Present Illness: 12/07/2023 Patient presents to clinic with her father. She was referred by Dr. Doris Walden MD, director social at [facility] in [facility]. She has been following with Dr. Walden for about 2 years. The reason for referral is the detection of anticentromere antibody (?). In 2019, she received the COVID-19 vaccine. 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 A few years later, she had an influenza vaccine and the uveitis flared up again in her right eye. Her primary care provider thought there might be an underlying rheumatological cause to these flare ups. She has had three episodes of uveitis so far, which have been correlated with receiving a vaccine. History of Present Illness: 12/07/2023 The patient presents to the clinic with her father. She was referred by Dr. Doris Walden MD, a director social at [facility] in [place], [place]. She has been following Dr. Walden for about two years. Today's referral is due to the detection of an anticentromere antibody (?). In 2019, she received the COVID-19 vaccine. 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 A few years later, she had an influenza vaccine, and the uveitis flared up again in her right eye. Her primary care provider thought there might be an underlying rheumatological cause to these flare ups. She has had three episodes of uveitis so far, which have been correlated with receiving a vaccine. She also has a history of Crohn's and Celiac disease. Both are currently under control. They were diagnosed via a colonoscopy (Crohn's disease) and EGD (celiac disease). She has been on a gluten free diet for two years now. She experienced some weight loss when she started the gluten-free diet, but she reports no weight loss prior to that. Today, her BMI is 23.44 kg/m? She reports intermittent nodules on the tips of her toes and the balls of her feet that are very painful. She has not seen a twist packer so far. The pain is worse in the morning but gets better during the day. She does not take dhkj-qlk-qucmpsd NSAIDs for pain control. She was prescribed Topiramate to manage her migraines, which are under control. She reports her toes turn blue in the cold, not her fingers. She notes bilateral MTP and PIP joint pain in her toes. She notes some intermittent morning stiffness that lasts less than 30 minutes. It improves with activity. 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 She denies Raynaud's phenomenon (the first symptom of systemic sclerosis). Also, she denies any history of ischemic digital ulcers, dry eyes and mouth, acid reflux symptoms, dysphagia, early satiety, constipation, diarrhea, or fecal incontinence. She also denies exertional shortness of breath or a dry cough. Her school requires her to receive the influenza vaccine despite her history of uveitis flare-ups with prior vaccines. She also has a history of Crohn's and Celiac disease. Both are currently under control. They were diagnosed via a colonoscopy (Crohn's disease) and EGD (celiac disease). She has been on a gluten free diet for two years now. She experienced some weight loss when she started the gluten-free diet but she reports no weight loss prior to that. Today, her BMI is 23.44 kg/m? She reports intermittent nodules on the tips on her toes and balls of her feet that are very painful. She has not seen a twist packer so far. It is worse in the morning but get better during the day. She does not take fylt-cbp-bfelrbb NSAIDs for pain control. She was prescribed Topiramate to manage her migraines, which are under control. She reports her toes turn blue in the cold, not her fingers. She notes bilateral MTP and PIP joint pain in her toes. She notes some intermittent morning stiffness that lasts less than 30 minutes. It improves with activity. 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 She denies Raynaud's phenomenon (the first symptom of systemic sclerosis). Also, she denies any history of ischemic digital ulcers, dry eyes and mouth, acid reflux symptoms, dysphagia, early satiety, constipation, diarrhea, or fecal incontinence. She also denies exertional shortness of breath or a dry co (more content not included)...[facility]06-17-2024 Telephone encounter Note* Telephone Encounter - Rosita Lemus Ma - 08/28/2023 1:53 PM EDT Received medical records from Dr Newton Simon scanned docs [facility]06-17-2024 Miscellaneous Notes* Telephone Encounter - Rosita Lemus Ma - 08/28/2023 1:53 PM EDT Received medical records from Dr Newton Simon scanned docs documented in this encounterThe [facility] Of [facility] CenterEvaluation noteNo assessment information availableWBlanchard [facility] Work Phone: Evaluation note* Diagnosis Onset Date Resolution Status Constipation acute Epigastric pain acute [facility] Work Phone: Evaluation note* Diagnosis Onset Date Resolution Status Constipation acute Combined abdominal and pelvic pain chronic [facility] Work Phone: Evaluation note* Diagnosis Onset Date Resolution Status Celiac disease acute [facility] Work Phone: Evaluation note* Diagnosis Onset Date Resolution Status Celiac disease acute Abdominal pain acute Alternating constipation and diarrhea acute Celiac disease acute Ulcer of small intestine acu [facility] Work Phone: Evaluation note* Diagnosis Onset Date Resolution Status Abdominal pain acute Alternating constipation and diarrhea acute Celiac disease acute Ulcer of small intestine acu [facility] Work Phone: Evaluation note* Diagnosis Onset Date Resolution Status Celiac disease chronic Celiac disease chronic Constipation chronic Crohn's disease [facility] Work Phone: Evaluation note* Diagnosis Onset Date Resolution Status Celiac disease chronic Constipation chronic Crohn's disease [facility] Work Phone: Evaluation note* Diagnosis Celiac disease- Primary Crohn's disease without complication, unspecified gastrointestinal tract location (HCC) Centromere antibody positive Hair loss Alopecia, unspecified Recurrent iritis of right eye Scleral disorder Other scleral disorder documented in this encounter [facility] for referral (narrative)* Diagnostic Procedure Only (Routine) - New Request Specialty Diagnoses / Procedures Referred By Crispin t Referred To Contact XR IMAGING Diagnoses Celiac disease Crohn's disease without complication, unspecified gastrointestinal tract location (HCC) Centromere antibody positive Hair loss Procedures XR FOOT GENERAL 3V AP/LAT/OBL BILATERAL RADEX FOOT COMPLETE MINIMUM 3 VIEWS Faiza Thomas MD [address] [place] [address] [place] [address] Referral ID Status Reason Start Date Expiration Date Visits Requested Visits Authorized [id number] New Request Auto-Generat ed Referral 12/08/2023 01/06/2025 1 1 [facility] for referral (narrative)No reason for referral information availableAmana Medical Services Work Phone: Summary Purpose Family History No Family History Records Found Relationship Condition Age at Onset Recorded Date/T ines uncle Malignant neoplasm of colon Unknown grandfather Malignant neoplasm of bone Unknown grandmother Cerebrovascular accident (CVA) Unknown uncle Myocardial infarction Unknown Advance Directives No Advanced Directives Records Found Advance Directive Response Recorded Date/ Time Living Will No February 22, 11:54am Power of Mobile Phlebotomist No February 22, 2022 11:54am Advance Directive Response Recorded Date/ Time Living Will No February 22 12:54pm Power of Mobile Phlebotomist No February 22, 2022 12:54pm Advance Directive Response Recorded Date/ Time Living Will No January 01 2:14am Power of Mobile Phlebotomist No January 01, 2023 2:14am Chief Complaint and Reason for Visit Chief Complaint SOB POSITIVE MONROE E ORDER SITZ DAY 3 Reason for Visit Constipation Epigastric pain Chief Complaint SOB POSITIVE MONROE E ORDER SITZ DAY 3 2 MO FU EORDERS Reason for Visit Constipation Combined abdominal and pelvic pain Chief Complaint SOB POSITIVE MONROE E ORDER SITZ DAY 3 2 MO FU EORDERS ABD PAIN Reason for Visit Constipation Combined abdominal and pelvic pain Chief Complaint SOB POSITIVE MONROE E ORDER SITZ DAY 3 2 MO FU EORDERS ABD PAIN ABD PAIN Reason for Visit Constipation Combined abdominal and pelvic pain Chief Complaint EORDERS ABD PAIN ABD PAIN 2 MO FU cap endo Reason for Visit Celiac disease Chief Complaint ABD PAIN 2 MO FU cap endo 2 WK FU EORDERS Reason for Visit Celiac disease Abdominal pain Alternating constipation and diarrhea Celiac disease Ulcer of small intestine Chief Complaint cap endo 2 WK FU EORDERS NEW EMPLOYEE PHYSICAL skyrizi Reason for Visit Abdominal pain Alternating constipation and diarrhea Celiac disease Ulcer of small intestine Chief Complaint 2 WK FU EORDERS NEW EMPLOYEE PHYSICAL skyrizi 3 MO FU skyrizi Reason for Visit Celiac disease Celiac disease Constipation Crohn's disease Chief Complaint NEW EMPLOYEE PHYSICA L skyrizi 3 MO FU skyrizi SKYRIZI Reason for Visit Celiac disease Constipation Crohn's disease Chief Complaint chest pain 6 MO FU INT LABS Reason for Visit Celiac disease Constipation Crohn's disease Chief Complaint Admit Date 6 M FU August 27, 2024 9:07 am Chief Complaint Admit Date 6 M FU August 27, 2024 9:07 am EMPLOYEE LABS October 01, 2024 8:52 am Annual ([employer]) November 21, 2024 10:25am Reason for Visit Admit Date Celiac disease August 27, 2024 9:07 am Constipation August 27, 2024 9:07 am Crohn's disease August 27, 2024 9:07 am Encounter for routine gynecological exam ination November 21, 2024 10:25am Additional Source Comments INFORMATION SOURCE (unrecogn ized section and content) DATE CREATED AUTHOR 08/28/2018 [facility] DATE CREATED AUTHOR AUTHOR'S ORGANIZ ATION 05/04/2019 [facility] ([place]) DATE CREATED AUTHOR AUTHOR'S ORGANIZ ATION 12/09/2023 [facility] DATE CREATED AUTHOR AUTHOR'S ORGANIZ ATION 11/23/2024 [facility] Goals (unrecognized section and content) Goals may be documented in a n alternate sectionGoals may be documented in an alternate sectionGoals may be documented in an alternate sectionGoals may be documented in an alternate sectionGoals may be documented in an alternate sectionGoals may be documented in an alternate sectionGoals may be documented in an alternate sectionGoals may be documented in an alternate sectionGoals may be documented in an alternate sectionGoals may be documented in an alternate sectionGoals may be documented in an alternate sectionGoals may be documented in an alternate sectionGoals may be documented in an alternate section Care Teams (unrecognized sec tion and content) Team Status: Active Member Role Status Dates Dr. Mitali Alonzo MD Family Provider Active Dr. Mitali Alonzo MD Primary Care Provider Active Team Status: Inactive Member Role Status Dates Dr. Mitali Alonzo MD Primary Care Provider, Referrin g Provider Active Liliana Goldberg [employer] BR[employer]ING [employer]EDING SUPERVISOR, [employer] SUEDING SUPERVISOR-C Attending Provider Active Team Status: Inactive Member Role Status Dates Dr. Mitali Alonzo MD Primary Care Provider, Referrin g Provider Active Dr. Tyson Sotelo DO Attending Provider Active Team Status: Active Member Role Status Dates Dr. Mitali Alonzo MD Primary Care Provider, Referrin g Provider Active Dr. Tyson Sotelo DO Attending Provider, Other Prov ider Active Team Status: Active Member Role Status Dates Employee Health Attending Provider Active Team Status: Inactive Member Role Status Dates Dr. Mitali Alonzo MD Primary Care Provider Active Liliana Goldberg [employer]OTH BR[employer]ING [employer]EDING SUPERVISOR, [employer]OTH BR[employer]ING [employer]EDING SUPERVISOR-C Attending Provider Active Team Status: Active Member Role Status Dates Dr. Mitali Alonzo MD Primary Care Provider Active Health Risk Assessment Attending Provider, Referring P glenn Active Team Status: Inactive Member Role Status Dates Dr. Mitali Alonzo MD Primary Care Provider Active Dr. Tyson Sotelo DO Attending Provider, Referring Provider Active Team Status: Inactive Member Role Status Dates Dr. Mitali Alonzo MD Primary Care Prov ider, Attending Provider, Referring Provider Active Team Status: Inactive Member Role Status Dates Dr. Mitali Alonzo MD Primary Care Provider Active Dr. Tyrell Sykes DO Attending Provider, Emergency Pr ovider Active Career And Guidance Counselor Relationship Specialty Start Date End Date Mitali Alonzo MD [address] [place] [id number] PCP - General Family Medicine 08/28/23 Career And Guidance Counselor Relationship Specialty Start Date End Date Mitali Alonzo MD [address] [place] [id number] PCP - General Family Medicine 08/28/23 Team Status: Inactive Member Role Status Dates Dr. Mitali Alonzo MD Primary Care Provider Active Start: August 27, 2024 End: August 27, 2024 Dr. Mitali Alonzo MD Referring Provider Active Start: August 27, 2024 End: August 27, 2024 Dr. Tyson Sotelo DO Attending Provider Active Start: August 27, 2024 End: August 27, 2024 Team Status: Active Member Role/Relationship Status Dates Dr. Mitali Alonzo MD Primary Care Provider Active Team Status: Inactive Member Role/Relationship Status Dates Dr. Mitali Alonzo MD Primary Care Provider Active Start: August 27, 2024 End: August 27, 2024 Dr. Mitali Alonzo MD Referring Provider Active Start: August 27, 2024 End: August 27, 2024 Dr. Tyson Sotelo DO Attending Provider Active Start: August 27, 2024 End: August 27, 2024 Team Status: Active Member Role/Relationship Status Dates Dr. Mitali Alonzo MD Primary Care Provider Active Start: October 01, 2024 Health Risk Assessment Attending Provider Active Start: October 01, 2024 Health Risk Assessment Referring Provider Active Start: October 01, 2024 Team Status: Inactive Member Role/Relationship Status Dates Dr. Mitali Alonzo MD Primary Care Provider Active Start: November 21, 2024 End: November 21, 2024 Dr. Mitali Alonzo MD Referring Provider Active Start: November 21, 2024 End: November 21, 2024 MOSHE Lopez Attending Provider Active Start: November 21, 2024 End: November 21, 2024 Source Comments (unrecognize d section and content) In the event this informatio n is protected by the Federal Confidentiality of Alcohol and Drug Abuse Patient Records regulations: The Federal rules restrict any use of the information to criminally investigate or prosecute any alcohol or drug abuse patient.[facility] the event this information is protected by the Federal Confidentiality of Alcohol and Drug Abuse Patient Records regulations: The Federal rules restrict any use of the information to criminally investigate or prosecute any alcohol or drug abuse patient.[facility] Reason for Visit (unrecogniz ed section and content) Reason Comments Received Outside Medical Records FOR RECORDS PERTAINING TO PATIENTS WHO ARE [...] BE BASED ON THE PRIMARY CLINICAL RECORDS. [facility] provides no warranty or guarantee of the accuracy or completeness of information in this document.
[2025-02-25 11:19] LABS: AST(SGOT) 19 U/L (<=31); Alanine Aminotransfer ALT/SGPT 14 U/L (<=34); Albumin, Serum 4.2 g/dL (3.5-5.0); Alkaline Phosphatase 38 U/L (35-104); Anion Gap 10 (5-15); BUN 7 mg/dL (4-19); BUN/Creat Ratio 7.7 RATIO (10-20); CRP < 3.00 mg/L (0.0-3.0); Calcium,Total 9.1 mg/dL (7.6-11.0); Carbon Dioxide 24.4 mmol/L (21.0-32.0); Chloride 106 mmol/L (98-108); Globulin 2.6 g/dL (2.2-4.2); Glucose 82 mg/dL (70-99); Potassium 3.6 mmol/L (3.3-5.1)
[2025-02-25 11:39] LABS: Hematocrit 38.7 % (37-47); Hemoglobin 12.7 g/dL (12.0-15.0); Immature Granulocytes Count 0.020 X10^3/uL (0.0-0.0); Mean Corp Hgb Conc 32.8 g/dL (32-36); Mean Corpuscular Volume 94.6 fL (81-99); Mean Platelet Vol. 11.3 fl (6.2-12.0); NRBC Flagged by Analyzer 0 % (0-5); Platelet Count 216 K/mm3 (150-450); RBC Distribution Width CV 14.1 % (11.6-14.6); RBC Distribution Width SD 48.8 fl (35.1-43.9); Red Blood Count 4.09 M/mm3 (4.2-5.4); White Blood Count 5.5 K/mm3 (4.4-11.0)
== END | disposition home or self-care (01) ==
PROVIDERS: PCP Family Medicine; Referring Provider Internal Medicine Gastroenterology; Visit Provider Internal Medicine Gastroenterology
DX: K50.00 Crohn's disease of small intestine without complications (principal); K90.0 Celiac disease
CPT/HCPCS: 36415; 80053; 85025; 85652; 86140